=== PATIENT | female | born 1935 | race Caucasian/White ===

== ENCOUNTER 2017-10-03 06:53 | Inpatient (IN) ==
[2017-10-03 07:53] LABS: Apearance,Urine Slightly Hazy (Clear); Bacteria,Urine Occasional /HPF (Few); Bilirubin,Urine Negative (Negative); Blood, Urine Negative (Negative); Glucose,Urine (UA) Negative (Negative); Ketones,Urine Negative (Negative); Mucus,Urine Occasional /LPF (Occasional); Nitrite,Urine Negative (Negative); Protein,Urine Negative; RBC,Urine 5 /HPF (0-4); Squamous Epithelial Cell,Urine Occasional /HPF (0-10); Urine Color Yellow (Yellow); Urine Specific Gravity 1.017 (1.001-1.035); Urine Urobilinogen < 2.0 EU/DL (0.2-1.0); WBC,Urine 1 /HPF (0-6)
[2017-10-03 08:10] LABS: Basophils % 0.3 % (0.0-0.8); Eosinophils % 0.3 % (0.00-10.9); Hematocrit 36.9 VOL% (35.7-47.0); Hemoglobin 11.8 GM/DL (12.0-16.0); Immature Granulocytes % 0.7 %; Immature Granulocytes Absolute 0.09 #; Lymphocytes % 22.1 % (21.3-54.2); Mean Corpuscular Hemoglobin 28 PG (27-34); Mean Corpuscular Volume 88.1 FL (87-102); Mean Platelet Volume 11.9 FL (9.6-12.0); Monocytes # 1.1 10*3/uL (0.11-0.8); Monocytes % 8.2 % (1.7-12.7); Neutrophils # 9.4 10*3/uL (1.4-7.4); Neutrophils % 68.4 % (38.7-73.9); Platelet Count 225 T/CUMM (130-400); Red Blood Count 4.19 MC/CUMM (3.8-5.5); Red Cell Distribution Width 15.2 % (9.3-17.3); White Blood Count 13.7 T/CUMM (4-12)
[2017-10-03] MEDS ORDERED: SODIUM CHLORIDE 0.9% 500 ML IV STA (08:12)
[2017-10-03] MEDS ORDERED: KETOROLAC 30 MG/1 ML VIAL IV STA (08:12)
[2017-10-03] MEDS ORDERED: KETOROLAC 30 MG/1 ML VIAL ONE (08:16)
[2017-10-03 08:32] LABS: Alanine Aminotransferase 13 U/L (13-56); Albumin 3.8 G/DL (3.4-5.0); Alkaline Phosphatase 68 U/L (45-117); Aspartate Amino Transferase 18 U/L (0-37); Bilirubin,Total < 0.39 MG/DL (0.2-1.0); Blood Urea Nitrogen 33 MG/DL (7-18); Calcium 9.3 MG/DL (8.5-10.1); Glucose 260 MG/DL (74-106); Osmolality,Calculated 290.7 MOS/KG (273-304); Potassium 4.5 MMOL/L (3.5-5.1); Sodium 138 MMOL/L (136-145); Total Protein 7.4 G/DL (6.4-8.3)
[2017-10-03] MEDS ORDERED: ONDANSETRON 4 MG/2 ML VIAL IV PRN (12:03)
[2017-10-03] MEDS ORDERED: DEXTROSE 50% 25 GM/50 ML VIAL IV PRN (12:18)
[2017-10-03] MEDS ORDERED: GLUCAGON 1 MG VIAL IM PRN (12:18)
[2017-10-03] MEDS ORDERED: KETOROLAC 15 MG/1 ML VIAL IV SCH (12:30)
[2017-10-03 12:45] LABS: Thyroid Stimulating Hormone 2.56 uIU/ml (0.358-3.74)
[2017-10-03] MEDS ORDERED: CIPROFLOXACIN INJ 400 MG in PREMIX 1 EACH IV SCH (13:00)
[2017-10-03] MEDS: SODIUM CHLORIDE 0.9% 1,000 ML IV SCH ×2 (13:55→23:15)
[2017-10-03] MEDS ORDERED: traMADol 50 MG TABLET PO PRN (14:06)
[2017-10-03] MEDS ORDERED: diphenhydrAMINE 50 MG/1 ML VIAL IV PRN (14:32)
[2017-10-03] MEDS: ALUMINUM/MAGNES/SIMETH MAX STR 30 ML UDCUP PO SCH ×3 (15:10→23:15)
[2017-10-03] MEDS: cefOXitin 2,000 MG in SYRINGE 1 EACH IV SCH (16:38)
[2017-10-03] MEDS: INSULIN LISPRO 100 UNIT/ML SUBCUT SCH (16:49)
[2017-10-03] MEDS: ASPIRIN EC 81 MG TABLET PO SCH (20:30)
[2017-10-03] MEDS: FAMOTIDINE 20 MG/2 ML VIAL IV SCH (20:31)
[2017-10-04] MEDS: cefOXitin 2,000 MG in SYRINGE 1 EACH IV SCH ×3 (00:12→16:31)
[2017-10-04] MEDS: ALUMINUM/MAGNES/SIMETH MAX STR 30 ML UDCUP PO SCH ×3 (02:36→11:31)
[2017-10-04 05:45] LABS: Basophils % 0.4 % (0.0-0.8); Eosinophils # 0.1 10*3/uL (0.0-0.87); Hematocrit 34.8 VOL% (35.7-47.0); Hemoglobin 10.9 GM/DL (12.0-16.0); Immature Granulocytes % 0.4 %; Immature Granulocytes Absolute 0.03 #; Lymphocytes # 2.3 10*3/uL (1.4-4.0); Mean Corpuscular HGB Conc 31.3 GM/DL (32-36); Mean Corpuscular Hemoglobin 28 PG (27-34); Mean Platelet Volume 10.9 FL (9.6-12.0); Monocytes # 0.8 10*3/uL (0.11-0.8); Monocytes % 11.5 % (1.7-12.7); Neutrophils # 3.4 10*3/uL (1.4-7.4); Neutrophils % 51.7 % (38.7-73.9); Platelet Count 208 T/CUMM (130-400); Red Blood Count 3.91 MC/CUMM (3.8-5.5); Red Cell Distribution Width 15.4 % (9.3-17.3); White Blood Count 6.7 T/CUMM (4-12)
[2017-10-04] MEDS: LEVOTHYROXINE 125 MCG TABLET PO SCH (06:06)
[2017-10-04 06:18] LABS: Albumin 2.9 G/DL (3.4-5.0); Bilirubin,Total 0.4 MG/DL (0.2-1.0); Calcium 8.4 MG/DL (8.5-10.1); Potassium 4.6 MMOL/L (3.5-5.1); Risk Ratio 5.51; Total Protein 5.8 G/DL (6.4-8.3); VLDL CHOLESTEROL 48.8 MG/DL
[2017-10-04] MEDS: INSULIN LISPRO 100 UNIT/ML SUBCUT SCH ×2 (08:00→16:31)
[2017-10-04] MEDS: amLODIPine 2.5 MG TABLET PO SCH (09:19)
[2017-10-04] MEDS: FAMOTIDINE 20 MG/2 ML VIAL IV SCH ×2 (09:19→21:41)
[2017-10-04] MEDS: CHOLECALCIFEROL 1,000 UNIT TABLET PO SCH (09:19)
[2017-10-04] MEDS: SODIUM CHLORIDE 0.9% 1,000 ML IV SCH ×2 (09:22→18:59)
[2017-10-04] MEDS: ASPIRIN EC 81 MG TABLET PO SCH (21:41)
[2017-10-05] MEDS: cefOXitin 2,000 MG in SYRINGE 1 EACH IV SCH ×3 (01:18→16:33)
[2017-10-05] MEDS: SODIUM CHLORIDE 0.9% 1,000 ML IV SCH ×2 (05:00→13:43)
[2017-10-05 06:16] LABS: Basophils % 0.4 % (0.0-0.8); Eosinophils # 0.1 10*3/uL (0.0-0.87); Eosinophils % 1.7 % (0.00-10.9); Hematocrit 33.9 VOL% (35.7-47.0); Hemoglobin 10.5 GM/DL (12.0-16.0); Immature Granulocytes % 0.8 %; Immature Granulocytes Absolute 0.06 #; Lymphocytes # 2.5 10*3/uL (1.4-4.0); Lymphocytes % 34.5 % (21.3-54.2); Mean Corpuscular Hemoglobin 28 PG (27-34); Mean Corpuscular Volume 90.6 FL (87-102); Mean Platelet Volume 11.6 FL (9.6-12.0); Monocytes # 0.8 10*3/uL (0.11-0.8); Monocytes % 11.4 % (1.7-12.7); Neutrophils # 3.7 10*3/uL (1.4-7.4); Neutrophils % 51.2 % (38.7-73.9); Platelet Count 202 T/CUMM (130-400); Red Blood Count 3.74 MC/CUMM (3.8-5.5); Red Cell Distribution Width 15.5 % (9.3-17.3); White Blood Count 7.3 T/CUMM (4-12)
[2017-10-05] MEDS: LEVOTHYROXINE 125 MCG TABLET PO SCH (06:45)
[2017-10-05 06:47] LABS: Calcium 8.3 MG/DL (8.5-10.1); Osmolality,Calculated 288.8 MOS/KG (273-304); Potassium 4.3 MMOL/L (3.5-5.1)
[2017-10-05] MEDS: INSULIN LISPRO 100 UNIT/ML SUBCUT SCH ×2 (08:41→18:24)
[2017-10-05] MEDS ORDERED: LIDOCAINE 2% TOP JELLY 20 ML VIAL INTRAURETH ONE (08:43)
[2017-10-05] MEDS: amLODIPine 2.5 MG TABLET PO SCH (08:45)
[2017-10-05] MEDS: FAMOTIDINE 20 MG/2 ML VIAL IV SCH ×2 (08:45→21:08)
[2017-10-05] MEDS ORDERED: SEVOFLURANE 1 UNIT/15 MINUTE INH ONE (11:09)
[2017-10-05] MEDS ORDERED: ePHEDrine 50 MG/ML AMP ONE (11:10)
[2017-10-05] MEDS ORDERED: MIDAZOLAM 2 MG/2 ML VIAL ONE (11:10)
[2017-10-05] MEDS ORDERED: fentaNYL 100 MCG/2 ML VIAL ONE (11:10)
[2017-10-05] MEDS ORDERED: PHENYLEPHRINE 10 MG/1 ML VIAL IV ONE (11:11)
[2017-10-05] MEDS ORDERED: SUCCINYLCHOLINE 200 MG/10 ML VIAL ONE (11:11)
[2017-10-05] MEDS ORDERED: ONDANSETRON 4 MG/2 ML VIAL ONE (11:11)
[2017-10-05] MEDS ORDERED: GLYCOPYRROLATE 0.4 MG/2 ML VIAL ONE (11:11)
[2017-10-05] MEDS: CHOLECALCIFEROL 1,000 UNIT TABLET PO SCH (11:32)
[2017-10-05] MEDS: ALBUTEROL/IPRATROPIUM 3 ML NEB RESP TX SCH (19:17)
[2017-10-05] MEDS: ASPIRIN EC 81 MG TABLET PO SCH (21:07)
[2017-10-06] MEDS: SODIUM CHLORIDE 0.9% 1,000 ML IV SCH (00:16)
[2017-10-06] MEDS: ALBUTEROL/IPRATROPIUM 3 ML NEB RESP TX SCH ×3 (01:35→13:00)
[2017-10-06] MEDS: cefOXitin 2,000 MG in SYRINGE 1 EACH IV SCH ×2 (01:50→11:54)
[2017-10-06 06:18] LABS: Basophils % 0.4 % (0.0-0.8); Eosinophils # 0.1 10*3/uL (0.0-0.87); Eosinophils % 1.2 % (0.00-10.9); Hematocrit 32.6 VOL% (35.7-47.0); Hemoglobin 10.1 GM/DL (12.0-16.0); Immature Granulocytes % 0.4 %; Immature Granulocytes Absolute 0.03 #; Lymphocytes # 1.9 10*3/uL (1.4-4.0); Lymphocytes % 22.7 % (21.3-54.2); Mean Corpuscular Hemoglobin 29 PG (27-34); Mean Corpuscular Volume 92.1 FL (87-102); Mean Platelet Volume 10.6 FL (9.6-12.0); Monocytes # 0.8 10*3/uL (0.11-0.8); Monocytes % 9.6 % (1.7-12.7); Neutrophils # 5.5 10*3/uL (1.4-7.4); Neutrophils % 65.7 % (38.7-73.9); Platelet Count 188 T/CUMM (130-400); Red Blood Count 3.54 MC/CUMM (3.8-5.5); Red Cell Distribution Width 15.8 % (9.3-17.3); White Blood Count 8.4 T/CUMM (4-12)
[2017-10-06 06:54] LABS: Calcium 7.9 MG/DL (8.5-10.1); Osmolality,Calculated 285.8 MOS/KG (273-304); Potassium 4.2 MMOL/L (3.5-5.1)
[2017-10-06 07:44] VITALS: BP 148/86
[2017-10-06] MEDS: INSULIN LISPRO 100 UNIT/ML SUBCUT SCH (07:44)
[2017-10-06] MEDS ORDERED: FUROSEMIDE 40 MG/4 ML VIAL IV ONE (11:00)
[2017-10-06] MEDS: LEVOTHYROXINE 125 MCG TABLET PO SCH (11:54)
[2017-10-06] MEDS: amLODIPine 2.5 MG TABLET PO SCH (11:54)
[2017-10-06] MEDS: CHOLECALCIFEROL 1,000 UNIT TABLET PO SCH (11:54)
[2017-10-06] MEDS: FAMOTIDINE 20 MG/2 ML VIAL IV SCH (11:57)
== END 2017-10-06 15:29 | disposition home or self-care (01) | DRG 656 ==
LOC: N.ED 06:53 → N.EDINP 10:38 → N.2E 11:40
PROVIDERS: ADMIT Internal Medicine; ATTEND Internal Medicine

== ENCOUNTER 2017-10-12 15:55 | Inpatient (IN) ==
[2017-10-12] MEDS ORDERED: AZITHROMYCIN INJ 500 MG in SODIUM CHLORIDE 0.9% 250 ML IV STA (17:16)
[2017-10-12] MEDS ORDERED: ALBUTEROL/IPRATROPIUM 3 ML NEB RESP TX STA (17:16)
[2017-10-12] MEDS ORDERED: PANTOPRAZOLE 40 MG VIAL IV STA (17:16)
[2017-10-12] MEDS ORDERED: ONDANSETRON 4 MG/2 ML VIAL IV STA (17:16)
[2017-10-12] MEDS ORDERED: methylPREDNISolone SOD SUC 125 MG/2 ML VIAL IV STA (17:16)
[2017-10-12] MEDS ORDERED: AZITHROMYCIN 500 MG VIAL IV ONE (17:38)
[2017-10-12] MEDS ORDERED: PANTOPRAZOLE 40 MG VIAL IV ONE (17:38)
[2017-10-12] MEDS ORDERED: ONDANSETRON 4 MG/2 ML VIAL ONE (17:38)
[2017-10-12] MEDS ORDERED: methylPREDNISolone SOD SUC 125 MG/2 ML VIAL ONE (17:39)
[2017-10-12 17:52] LABS: Basophils % 0.3 % (0.0-0.8); Eosinophils # 0.1 10*3/uL (0.0-0.87); Eosinophils % 0.6 % (0.00-10.9); Hematocrit 33.5 VOL% (35.7-47.0); Hemoglobin 10.3 GM/DL (12.0-16.0); Immature Granulocytes % 0.8 %; Immature Granulocytes Absolute 0.09 #; Lymphocytes # 1.9 10*3/uL (1.4-4.0); Lymphocytes % 17.1 % (21.3-54.2); Mean Corpuscular HGB Conc 30.7 GM/DL (32-36); Mean Corpuscular Hemoglobin 28 PG (27-34); Mean Corpuscular Volume 90.3 FL (87-102); Mean Platelet Volume 10.9 FL (9.6-12.0); Monocytes # 1.3 10*3/uL (0.11-0.8); Monocytes % 12.1 % (1.7-12.7); Neutrophils # 7.5 10*3/uL (1.4-7.4); Neutrophils % 69.1 % (38.7-73.9); Platelet Count 246 T/CUMM (130-400); Red Blood Count 3.71 MC/CUMM (3.8-5.5); Red Cell Distribution Width 15.5 % (9.3-17.3); White Blood Count 10.8 T/CUMM (4-12)
[2017-10-12 18:30] LABS: Alanine Aminotransferase 14 U/L (13-56); Albumin 2.9 G/DL (3.4-5.0); Alkaline Phosphatase 82 U/L (45-117); Aspartate Amino Transferase 19 U/L (0-37); Blood Urea Nitrogen 8 MG/DL (7-18); Calcium 8.4 MG/DL (8.5-10.1); Glucose 152 MG/DL (74-106); Osmolality,Calculated 283.1 MOS/KG (273-304); Potassium 4.2 MMOL/L (3.5-5.1); Sodium 142 MMOL/L (136-145); Total Protein 6.5 G/DL (6.4-8.3); Troponin I Only 0.015 NG/ML (0.00-0.045)
[2017-10-12 18:58] LABS: Apearance,Urine CLEAR (Clear); Bilirubin,Urine Negative (Negative); Blood, Urine Moderate mg/dL (Negative); Glucose,Urine (UA) Negative (Negative); Ketones,Urine Negative (Negative); Mucus,Urine Occasional /LPF (Occasional); Nitrite,Urine Negative (Negative); Protein,Urine Negative; RBC,Urine 69 /HPF (0-4); Squamous Epithelial Cell,Urine Occasional /HPF (0-10); Urine Color Yellow (Yellow); Urine Specific Gravity 1.011 (1.001-1.035); Urine Urobilinogen < 2.0 EU/DL (0.2-1.0); WBC,Urine 12 /HPF (0-6)
[2017-10-12 19:25] LABS: PT Patient Result 10.6 SECS; Partial Thromboplastin Time 33.6 SECS (0-40)
[2017-10-12] MEDS ORDERED: MORPHINE 2 MG/1 ML SYRINGE IV PRN (21:33)
[2017-10-12] MEDS ORDERED: ALBUTEROL/IPRATROPIUM 3 ML NEB RESP TX PRN (21:33)
[2017-10-12] MEDS ORDERED: GLUCAGON 1 MG VIAL IM PRN ×2 (21:33)
[2017-10-12] MEDS ORDERED: DEXTROSE 50% 25 GM/50 ML VIAL IV PRN ×2 (21:33)
[2017-10-12] MEDS ORDERED: PROMETHAZINE 25 MG/1 ML VIAL IM PRN (21:33)
[2017-10-12] MEDS ORDERED: ACETAMINOPHEN 325 MG TABLET PO PRN (21:33)
[2017-10-12] MEDS ORDERED: IMIPENEM/CILASTATIN 500 MG in SODIUM CHLORIDE 0.9% 100 ML IV SCH (21:33)
[2017-10-12] MEDS: INSULIN REGULAR 100 UNIT/ML SUBCUT SCH (22:17)
[2017-10-12] MEDS: SODIUM CHLORIDE 0.9% 1,000 ML IV SCH (23:07)
[2017-10-12] MEDS: MEROPENEM 1,000 MG in SYRINGE 1 EACH IV SCH (23:07)
[2017-10-12] MEDS: DOCUSATE SODIUM 100 MG CAPSULE PO SCH (23:07)
[2017-10-12] MEDS: ENOXAPARIN 40 MG/0.4 ML SYRINGE SUBCUT SCH (23:07)
[2017-10-13] MEDS: ALBUTEROL/IPRATROPIUM 3 ML NEB RESP TX SCH ×4 (01:41→19:43)
[2017-10-13] MEDS: MEROPENEM 1,000 MG in SYRINGE 1 EACH IV SCH ×3 (05:28→20:45)
[2017-10-13 07:56] LABS: Basophils % 0.2 % (0.0-0.8); Hematocrit 32.1 VOL% (35.7-47.0); Hemoglobin 10.2 GM/DL (12.0-16.0); Immature Granulocytes % 1.1 %; Immature Granulocytes Absolute 0.11 #; Lymphocytes # 1.8 10*3/uL (1.4-4.0); Lymphocytes % 18.7 % (21.3-54.2); Mean Corpuscular HGB Conc 31.8 GM/DL (32-36); Mean Corpuscular Hemoglobin 28 PG (27-34); Mean Corpuscular Volume 88.7 FL (87-102); Mean Platelet Volume 11.4 FL (9.6-12.0); Monocytes # 0.4 10*3/uL (0.11-0.8); Monocytes % 3.9 % (1.7-12.7); Neutrophils # 7.5 10*3/uL (1.4-7.4); Neutrophils % 76.1 % (38.7-73.9); Platelet Count 285 T/CUMM (130-400); Red Blood Count 3.62 MC/CUMM (3.8-5.5); Red Cell Distribution Width 15.1 % (9.3-17.3); White Blood Count 9.9 T/CUMM (4-12)
[2017-10-13 08:25] LABS: Albumin 2.8 G/DL (3.4-5.0); Bilirubin,Total 0.4 MG/DL (0.2-1.0); Calcium 8.2 MG/DL (8.5-10.1); Potassium 4.4 MMOL/L (3.5-5.1); Total Protein 6.4 G/DL (6.4-8.3)
[2017-10-13] MEDS: INSULIN REGULAR 100 UNIT/ML SUBCUT SCH ×4 (08:54→21:44)
[2017-10-13] MEDS: amLODIPine 2.5 MG TABLET PO SCH (08:55)
[2017-10-13] MEDS: LEVOTHYROXINE 125 MCG TABLET PO SCH (08:55)
[2017-10-13] MEDS: CHOLECALCIFEROL 1,000 UNIT TABLET PO SCH (08:55)
[2017-10-13] MEDS: metFORMIN 500 MG TABLET PO SCH ×2 (08:56→17:47)
[2017-10-13] MEDS: DOCUSATE SODIUM 100 MG CAPSULE PO SCH ×2 (08:56→20:45)
[2017-10-13] MEDS: PANTOPRAZOLE 40 MG TABLET PO SCH (08:56)
[2017-10-13] MEDS: DESITIN 4OZ/NYSTATIN 15 GRAM MIXTURE PASTE TOP SCH ×2 (14:46→21:44)
[2017-10-13] MEDS: AZITHROMYCIN INJ 250 MG in SODIUM CHLORIDE 0.9% 250 ML IV SCH (17:49)
[2017-10-13] MEDS: ASPIRIN EC 81 MG TABLET PO SCH (20:45)
[2017-10-13] MEDS: PRAVASTATIN 40 MG TABLET PO SCH (20:45)
[2017-10-13] MEDS: MULTIVITAMIN (CENTRUM) TABLET PO SCH (20:45)
[2017-10-13] MEDS: ENOXAPARIN 40 MG/0.4 ML SYRINGE SUBCUT SCH (20:45)
[2017-10-13] MEDS: SODIUM CHLORIDE 0.9% 1,000 ML IV SCH (20:46)
[2017-10-14] MEDS: ALBUTEROL/IPRATROPIUM 3 ML NEB RESP TX SCH (01:05)
[2017-10-14] MEDS ORDERED: DILTIAZEM 50 MG/10 ML VIAL IV ONE (05:49)
[2017-10-14] MEDS ORDERED: LEVALBUTEROL 1.25 MG/3 ML NEB RESP TX PRN (05:50)
[2017-10-14] MEDS ORDERED: DILTIAZEM 100 MG VIAL.ADD IV ONE (05:53)
[2017-10-14] MEDS ORDERED: SODIUM CHLORIDE 0.9% 100 ML IV ONE (05:54)
[2017-10-14] MEDS: DILTIAZEM INJ 100 MG in SODIUM CHLORIDE 0.9% 100 ML IV SCH (05:56)
[2017-10-14] MEDS: MEROPENEM 1,000 MG in SYRINGE 1 EACH IV SCH ×3 (05:59→22:02)
[2017-10-14 06:07] LABS: Basophils % 0.3 % (0.0-0.8); Eosinophils # 0.1 10*3/uL (0.0-0.87); Eosinophils % 0.4 % (0.00-10.9); Hematocrit 34.6 VOL% (35.7-47.0); Hemoglobin 10.7 GM/DL (12.0-16.0); Immature Granulocytes % 1.2 %; Immature Granulocytes Absolute 0.19 #; Lymphocytes # 2.6 10*3/uL (1.4-4.0); Lymphocytes % 16.8 % (21.3-54.2); Mean Corpuscular HGB Conc 30.9 GM/DL (32-36); Mean Corpuscular Hemoglobin 28 PG (27-34); Mean Corpuscular Volume 90.1 FL (87-102); Mean Platelet Volume 10.8 FL (9.6-12.0); Monocytes # 1.6 10*3/uL (0.11-0.8); Monocytes % 10.1 % (1.7-12.7); NRBC # 0.02 10*3/uL; Neutrophils # 11.1 10*3/uL (1.4-7.4); Neutrophils % 71.2 % (38.7-73.9); Platelet Count 380 T/CUMM (130-400); Red Blood Count 3.84 MC/CUMM (3.8-5.5); Red Cell Distribution Width 15.8 % (9.3-17.3); White Blood Count 15.6 T/CUMM (4-12)
[2017-10-14] MEDS ORDERED: hydrALAZINE 20 MG/1 ML VIAL IV PRN (06:08)
[2017-10-14 06:37] LABS: Alanine Aminotransferase 20 U/L (13-56); Alkaline Phosphatase 88 U/L (45-117); Aspartate Amino Transferase 21 U/L (0-37); Bilirubin,Total < 0.39 MG/DL (0.2-1.0); Blood Urea Nitrogen 16 MG/DL (7-18); Calcium 8.2 MG/DL (8.5-10.1); Glucose 167 MG/DL (74-106); Osmolality,Calculated 290.8 MOS/KG (273-304); Potassium 4.4 MMOL/L (3.5-5.1); Sodium 144 MMOL/L (136-145); Total Protein 6.6 G/DL (6.4-8.3)
[2017-10-14] MEDS: LEVOTHYROXINE 125 MCG TABLET PO SCH (07:19)
[2017-10-14] MEDS: ENOXAPARIN 100 MG/ML SYRINGE SUBCUT SCH ×2 (07:19→18:09)
[2017-10-14] MEDS: IPRATROPIUM 500 MCG/2.5 ML NEB RESP TX SCH ×3 (08:26→19:57)
[2017-10-14] MEDS: INSULIN REGULAR 100 UNIT/ML SUBCUT SCH ×4 (09:06→22:06)
[2017-10-14] MEDS: CHOLECALCIFEROL 1,000 UNIT TABLET PO SCH (09:19)
[2017-10-14] MEDS: metFORMIN 500 MG TABLET PO SCH ×2 (09:19→17:07)
[2017-10-14] MEDS: amLODIPine 2.5 MG TABLET PO SCH (09:19)
[2017-10-14] MEDS: DOCUSATE SODIUM 100 MG CAPSULE PO SCH ×2 (09:19→22:01)
[2017-10-14] MEDS: DESITIN 4OZ/NYSTATIN 15 GRAM MIXTURE PASTE TOP SCH ×2 (09:20→22:02)
[2017-10-14] MEDS: PANTOPRAZOLE 40 MG TABLET PO SCH (09:20)
[2017-10-14] MEDS: METOPROLOL TARTRATE 25 MG TABLET PO SCH ×2 (10:00→22:01)
[2017-10-14] MEDS: AZITHROMYCIN INJ 250 MG in SODIUM CHLORIDE 0.9% 250 ML IV SCH (18:09)
[2017-10-14] MEDS: PRAVASTATIN 40 MG TABLET PO SCH (22:01)
[2017-10-14] MEDS: MULTIVITAMIN (CENTRUM) TABLET PO SCH (22:01)
[2017-10-14] MEDS: ASPIRIN EC 81 MG TABLET PO SCH (22:01)
[2017-10-15] MEDS: IPRATROPIUM 500 MCG/2.5 ML NEB RESP TX SCH ×4 (00:44→20:37)
[2017-10-15] MEDS: LEVOTHYROXINE 125 MCG TABLET PO SCH (06:13)
[2017-10-15] MEDS: ENOXAPARIN 100 MG/ML SYRINGE SUBCUT SCH ×2 (06:14→18:44)
[2017-10-15] MEDS: MEROPENEM 1,000 MG in SYRINGE 1 EACH IV SCH ×3 (06:15→22:23)
[2017-10-15] MEDS: PANTOPRAZOLE 40 MG TABLET PO SCH (10:13)
[2017-10-15] MEDS: CHOLECALCIFEROL 1,000 UNIT TABLET PO SCH (10:13)
[2017-10-15] MEDS: amLODIPine 2.5 MG TABLET PO SCH (10:14)
[2017-10-15] MEDS: metFORMIN 500 MG TABLET PO SCH ×2 (10:15→18:43)
[2017-10-15] MEDS: METOPROLOL TARTRATE 25 MG TABLET PO SCH ×2 (10:15→22:22)
[2017-10-15] MEDS: DOCUSATE SODIUM 100 MG CAPSULE PO SCH ×2 (10:15→22:23)
[2017-10-15] MEDS: DILTIAZEM INJ 100 MG in SODIUM CHLORIDE 0.9% 100 ML IV SCH (10:17)
[2017-10-15] MEDS: INSULIN REGULAR 100 UNIT/ML SUBCUT SCH ×4 (10:17→22:22)
[2017-10-15] MEDS: DESITIN 4OZ/NYSTATIN 15 GRAM MIXTURE PASTE TOP SCH ×2 (11:56→22:52)
[2017-10-15] MEDS: FUROSEMIDE 40 MG/4 ML VIAL IV SCH (16:33)
[2017-10-15] MEDS: LINEZOLID INJ 600 MG in PREMIX 1 EACH IV SCH (17:27)
[2017-10-15] MEDS: FLUCONAZOLE INJ 200 MG in PREMIX 1 EACH IV SCH (18:43)
[2017-10-15] MEDS: PRAVASTATIN 40 MG TABLET PO SCH (22:21)
[2017-10-15] MEDS: MULTIVITAMIN (CENTRUM) TABLET PO SCH (22:21)
[2017-10-15] MEDS: ASPIRIN EC 81 MG TABLET PO SCH (22:22)
[2017-10-16] MEDS: IPRATROPIUM 500 MCG/2.5 ML NEB RESP TX SCH ×4 (00:42→18:30)
[2017-10-16 03:48] LABS: ABG Base Excess 5.6 MMOL/L (-2.5-2.5); ABG HCO3 29.5 MMOL/L (20-26); ABG Oxygen Saturation 96.7 % (95-100); ABG PCO2 41.2 MM HG (35-48); ABG PH 7.468 (7.35-7.45); ABG PO2 78.5 MM HG (80-95); ABG TCO2 26.9 MMOL/L (23-27)
[2017-10-16 05:45] LABS: Basophils % 0.3 % (0.0-0.8); Eosinophils # 0.1 10*3/uL (0.0-0.87); Eosinophils % 1.3 % (0.00-10.9); Hematocrit 32.7 VOL% (35.7-47.0); Hemoglobin 10.4 GM/DL (12.0-16.0); Immature Granulocytes % 1.7 %; Immature Granulocytes Absolute 0.18 #; Lymphocytes # 1.8 10*3/uL (1.4-4.0); Lymphocytes % 17.3 % (21.3-54.2); Mean Corpuscular HGB Conc 31.8 GM/DL (32-36); Mean Corpuscular Hemoglobin 28 PG (27-34); Mean Corpuscular Volume 87.9 FL (87-102); Mean Platelet Volume 11.3 FL (9.6-12.0); Monocytes # 1.4 10*3/uL (0.11-0.8); Neutrophils % 66.4 % (38.7-73.9); Platelet Count 361 T/CUMM (130-400); Red Blood Count 3.72 MC/CUMM (3.8-5.5); Red Cell Distribution Width 15.3 % (9.3-17.3); White Blood Count 10.5 T/CUMM (4-12)
[2017-10-16] MEDS: ENOXAPARIN 100 MG/ML SYRINGE SUBCUT SCH (06:07)
[2017-10-16] MEDS: LEVOTHYROXINE 125 MCG TABLET PO SCH (06:07)
[2017-10-16] MEDS: MEROPENEM 1,000 MG in SYRINGE 1 EACH IV SCH ×3 (06:07→21:37)
[2017-10-16] MEDS: LINEZOLID INJ 600 MG in PREMIX 1 EACH IV SCH ×2 (06:16→13:46)
[2017-10-16 06:18] LABS: Calcium 8.4 MG/DL (8.5-10.1); Osmolality,Calculated 282.4 MOS/KG (273-304)
[2017-10-16] MEDS: DILTIAZEM INJ 100 MG in SODIUM CHLORIDE 0.9% 100 ML IV SCH (07:30)
[2017-10-16] MEDS: metFORMIN 500 MG TABLET PO SCH ×2 (09:08→17:28)
[2017-10-16] MEDS: CHOLECALCIFEROL 1,000 UNIT TABLET PO SCH (09:09)
[2017-10-16] MEDS: DOCUSATE SODIUM 100 MG CAPSULE PO SCH ×2 (09:09→21:21)
[2017-10-16] MEDS: FUROSEMIDE 40 MG/4 ML VIAL IV SCH (09:09)
[2017-10-16] MEDS: PANTOPRAZOLE 40 MG TABLET PO SCH (09:09)
[2017-10-16] MEDS: METOPROLOL TARTRATE 25 MG TABLET PO SCH ×2 (09:09→21:20)
[2017-10-16] MEDS: amLODIPine 2.5 MG TABLET PO SCH (09:09)
[2017-10-16] MEDS: INSULIN REGULAR 100 UNIT/ML SUBCUT SCH ×4 (09:14→20:34)
[2017-10-16] MEDS: DESITIN 4OZ/NYSTATIN 15 GRAM MIXTURE PASTE TOP SCH ×2 (09:14→21:30)
[2017-10-16] MEDS ORDERED: MEROPENEM 1,000 MG in SYRINGE 1 EACH IV ONE (13:30)
[2017-10-16] MEDS: methylPREDNISolone SOD SUC 40 MG/1 ML VIAL IV SCH (17:22)
[2017-10-16] MEDS: FLUCONAZOLE INJ 200 MG in PREMIX 1 EACH IV SCH (17:28)
[2017-10-16] MEDS: ASCORBIC ACID 500 MG TABLET PO SCH (21:20)
[2017-10-16] MEDS: PRAVASTATIN 40 MG TABLET PO SCH (21:20)
[2017-10-16] MEDS: MULTIVITAMIN (CENTRUM) TABLET PO SCH (21:20)
[2017-10-16] MEDS: ASPIRIN EC 81 MG TABLET PO SCH (21:20)
[2017-10-17] MEDS: IPRATROPIUM 500 MCG/2.5 ML NEB RESP TX SCH ×4 (00:10→19:45)
[2017-10-17] MEDS: methylPREDNISolone SOD SUC 40 MG/1 ML VIAL IV SCH ×3 (01:33→16:28)
[2017-10-17] MEDS: LINEZOLID INJ 600 MG in PREMIX 1 EACH IV SCH ×2 (02:36→14:19)
[2017-10-17] MEDS: MEROPENEM 1,000 MG in SYRINGE 1 EACH IV SCH ×3 (06:02→20:59)
[2017-10-17 06:04] LABS: Basophils % 0.1 % (0.0-0.8); Hemoglobin 10.6 GM/DL (12.0-16.0); Immature Granulocytes % 2.4 %; Immature Granulocytes Absolute 0.23 #; Lymphocytes # 1.5 10*3/uL (1.4-4.0); Lymphocytes % 15.1 % (21.3-54.2); Mean Corpuscular HGB Conc 32.1 GM/DL (32-36); Mean Corpuscular Hemoglobin 28 PG (27-34); Mean Corpuscular Volume 86.4 FL (87-102); Mean Platelet Volume 12.1 FL (9.6-12.0); Monocytes # 0.3 10*3/uL (0.11-0.8); Monocytes % 3.4 % (1.7-12.7); Neutrophils # 7.6 10*3/uL (1.4-7.4); Platelet Count 364 T/CUMM (130-400); Red Blood Count 3.82 MC/CUMM (3.8-5.5); Red Cell Distribution Width 14.9 % (9.3-17.3); White Blood Count 9.6 T/CUMM (4-12)
[2017-10-17] MEDS: LEVOTHYROXINE 125 MCG TABLET PO SCH (06:05)
[2017-10-17] MEDS: DILTIAZEM INJ 100 MG in SODIUM CHLORIDE 0.9% 100 ML IV SCH (06:20)
[2017-10-17 06:31] LABS: Band Neutrophils 4 % (0-10); Lymphocytes 11 % (20-55); Segmented Neutrophils 79 % (50-85); Total Cells Counted 100
[2017-10-17 06:32] LABS: Hypochromasia 2+; Platelet Estimate Adequate
[2017-10-17 06:42] LABS: Calcium 8.1 MG/DL (8.5-10.1); Osmolality,Calculated 286.5 MOS/KG (273-304); Potassium 4.4 MMOL/L (3.5-5.1)
[2017-10-17] MEDS: INSULIN REGULAR 100 UNIT/ML SUBCUT SCH ×4 (07:46→20:59)
[2017-10-17] MEDS: FUROSEMIDE 40 MG/4 ML VIAL IV SCH (10:04)
[2017-10-17] MEDS: metFORMIN 500 MG TABLET PO SCH ×2 (10:37→16:28)
[2017-10-17] MEDS: CHOLECALCIFEROL 1,000 UNIT TABLET PO SCH (10:38)
[2017-10-17] MEDS: ASCORBIC ACID 500 MG TABLET PO SCH ×2 (10:38→20:58)
[2017-10-17] MEDS: amLODIPine 2.5 MG TABLET PO SCH (10:38)
[2017-10-17] MEDS: PANTOPRAZOLE 40 MG TABLET PO SCH (10:39)
[2017-10-17] MEDS: METOPROLOL TARTRATE 25 MG TABLET PO SCH ×2 (10:39→20:58)
[2017-10-17] MEDS: DOCUSATE SODIUM 100 MG CAPSULE PO SCH ×2 (10:40→20:59)
[2017-10-17] MEDS: DESITIN 4OZ/NYSTATIN 15 GRAM MIXTURE PASTE TOP SCH ×2 (10:46→20:59)
[2017-10-17] MEDS: FLUCONAZOLE INJ 200 MG in PREMIX 1 EACH IV SCH (16:27)
[2017-10-17] MEDS: MULTIVITAMIN (CENTRUM) TABLET PO SCH (20:58)
[2017-10-17] MEDS: ASPIRIN EC 81 MG TABLET PO SCH (20:58)
[2017-10-17] MEDS: PRAVASTATIN 40 MG TABLET PO SCH (20:58)
[2017-10-18] MEDS: IPRATROPIUM 500 MCG/2.5 ML NEB RESP TX SCH ×4 (00:17→19:43)
[2017-10-18] MEDS: LINEZOLID INJ 600 MG in PREMIX 1 EACH IV SCH (02:56)
[2017-10-18] MEDS: methylPREDNISolone SOD SUC 40 MG/1 ML VIAL IV SCH ×3 (02:58→21:31)
[2017-10-18] MEDS: MEROPENEM 1,000 MG in SYRINGE 1 EACH IV SCH ×3 (05:00→21:31)
[2017-10-18] MEDS: DILTIAZEM INJ 100 MG in SODIUM CHLORIDE 0.9% 100 ML IV SCH (05:37)
[2017-10-18] MEDS: LEVOTHYROXINE 125 MCG TABLET PO SCH (06:00)
[2017-10-18 06:15] LABS: Basophils % 0.1 % (0.0-0.8); Hematocrit 33.1 VOL% (35.7-47.0); Hemoglobin 10.2 GM/DL (12.0-16.0); Immature Granulocytes % 2.1 %; Immature Granulocytes Absolute 0.32 #; Lymphocytes # 1.9 10*3/uL (1.4-4.0); Lymphocytes % 12.5 % (21.3-54.2); Mean Corpuscular HGB Conc 30.8 GM/DL (32-36); Mean Corpuscular Hemoglobin 27 PG (27-34); Mean Platelet Volume 11.9 FL (9.6-12.0); Monocytes # 0.8 10*3/uL (0.11-0.8); Monocytes % 5.5 % (1.7-12.7); Neutrophils # 11.9 10*3/uL (1.4-7.4); Neutrophils % 79.8 % (38.7-73.9); Platelet Count 348 T/CUMM (130-400); Red Blood Count 3.72 MC/CUMM (3.8-5.5); Red Cell Distribution Width 14.8 % (9.3-17.3); White Blood Count 14.9 T/CUMM (4-12)
[2017-10-18 06:47] LABS: Calcium 8.7 MG/DL (8.5-10.1); Osmolality,Calculated 289.5 MOS/KG (273-304); Potassium 4.1 MMOL/L (3.5-5.1)
[2017-10-18] MEDS: metFORMIN 500 MG TABLET PO SCH ×2 (09:56→19:16)
[2017-10-18] MEDS: amLODIPine 2.5 MG TABLET PO SCH (09:57)
[2017-10-18] MEDS: CHOLECALCIFEROL 1,000 UNIT TABLET PO SCH (09:57)
[2017-10-18] MEDS: DOCUSATE SODIUM 100 MG CAPSULE PO SCH ×2 (09:57→21:33)
[2017-10-18] MEDS: ASCORBIC ACID 500 MG TABLET PO SCH ×2 (09:57→21:30)
[2017-10-18] MEDS: METOPROLOL TARTRATE 25 MG TABLET PO SCH ×2 (09:58→21:30)
[2017-10-18] MEDS: PANTOPRAZOLE 40 MG TABLET PO SCH (09:58)
[2017-10-18] MEDS: FUROSEMIDE 40 MG/4 ML VIAL IV SCH (09:59)
[2017-10-18] MEDS: INSULIN REGULAR 100 UNIT/ML SUBCUT SCH ×4 (09:59→21:33)
[2017-10-18] MEDS: DESITIN 4OZ/NYSTATIN 15 GRAM MIXTURE PASTE TOP SCH ×2 (10:20→21:33)
[2017-10-18] MEDS: FLUCONAZOLE 200 MG TABLET PO SCH (15:47)
[2017-10-18] MEDS: MULTIVITAMIN (CENTRUM) TABLET PO SCH (21:30)
[2017-10-18] MEDS: PRAVASTATIN 40 MG TABLET PO SCH (21:30)
[2017-10-18] MEDS: ASPIRIN EC 81 MG TABLET PO SCH (21:30)
[2017-10-18] MEDS: LINEZOLID 600 MG TABLET PO SCH (21:31)
[2017-10-19 05:24] LABS: Basophils % 0.2 % (0.0-0.8); Hematocrit 31.9 VOL% (35.7-47.0); Hemoglobin 10.1 GM/DL (12.0-16.0); Immature Granulocytes % 3.2 %; Immature Granulocytes Absolute 0.48 #; Lymphocytes # 1.7 10*3/uL (1.4-4.0); Lymphocytes % 11.3 % (21.3-54.2); Mean Corpuscular HGB Conc 31.7 GM/DL (32-36); Mean Corpuscular Hemoglobin 28 PG (27-34); Mean Corpuscular Volume 89.1 FL (87-102); Mean Platelet Volume 10.7 FL (9.6-12.0); Monocytes # 0.7 10*3/uL (0.11-0.8); Monocytes % 4.6 % (1.7-12.7); Neutrophils # 12.2 10*3/uL (1.4-7.4); Neutrophils % 80.7 % (38.7-73.9); Platelet Count 396 T/CUMM (130-400); Red Blood Count 3.58 MC/CUMM (3.8-5.5); Red Cell Distribution Width 14.9 % (9.3-17.3); White Blood Count 15.1 T/CUMM (4-12)
[2017-10-19 05:57] LABS: Calcium 8.7 MG/DL (8.5-10.1); Osmolality,Calculated 296.4 MOS/KG (273-304); Potassium 4.8 MMOL/L (3.5-5.1)
[2017-10-19] MEDS: DILTIAZEM INJ 100 MG in SODIUM CHLORIDE 0.9% 100 ML IV SCH (06:08)
[2017-10-19] MEDS: MEROPENEM 1,000 MG in SYRINGE 1 EACH IV SCH ×3 (06:35→22:05)
[2017-10-19] MEDS: LEVOTHYROXINE 125 MCG TABLET PO SCH (06:36)
[2017-10-19] MEDS: IPRATROPIUM 500 MCG/2.5 ML NEB RESP TX SCH ×4 (08:14→20:25)
[2017-10-19] MEDS: metFORMIN 500 MG TABLET PO SCH (10:30)
[2017-10-19] MEDS: CHOLECALCIFEROL 1,000 UNIT TABLET PO SCH (10:30)
[2017-10-19] MEDS: ASCORBIC ACID 500 MG TABLET PO SCH ×2 (10:32→22:02)
[2017-10-19] MEDS: FLUCONAZOLE 200 MG TABLET PO SCH (10:32)
[2017-10-19] MEDS: METOPROLOL TARTRATE 25 MG TABLET PO SCH ×2 (10:33→22:02)
[2017-10-19] MEDS: PANTOPRAZOLE 40 MG TABLET PO SCH (10:33)
[2017-10-19] MEDS: amLODIPine 2.5 MG TABLET PO SCH (10:33)
[2017-10-19] MEDS: DOCUSATE SODIUM 100 MG CAPSULE PO SCH ×2 (10:34→22:05)
[2017-10-19] MEDS: INSULIN REGULAR 100 UNIT/ML SUBCUT SCH ×4 (10:34→22:05)
[2017-10-19] MEDS: LINEZOLID 600 MG TABLET PO SCH ×2 (10:34→22:02)
[2017-10-19] MEDS: BUDESONIDE/FORMOTEROL 160-4.5 INHALER 6 GM INH SCH ×2 (10:35→22:13)
[2017-10-19] MEDS: methylPREDNISolone SOD SUC 40 MG/1 ML VIAL IV SCH ×2 (10:40→22:03)
[2017-10-19] MEDS: FUROSEMIDE 40 MG/4 ML VIAL IV SCH (10:41)
[2017-10-19] MEDS: DESITIN 4OZ/NYSTATIN 15 GRAM MIXTURE PASTE TOP SCH ×2 (11:20→22:13)
[2017-10-19] MEDS: glyBURIDE 5 MG TABLET PO SCH (18:02)
[2017-10-19] MEDS: PRAVASTATIN 40 MG TABLET PO SCH (22:02)
[2017-10-19] MEDS: MULTIVITAMIN (CENTRUM) TABLET PO SCH (22:02)
[2017-10-19] MEDS: ASPIRIN EC 81 MG TABLET PO SCH (22:03)
[2017-10-20] MEDS: IPRATROPIUM 500 MCG/2.5 ML NEB RESP TX SCH ×4 (00:46→19:30)
[2017-10-20 05:11] LABS: Basophils % 0.2 % (0.0-0.8); Hematocrit 36.6 VOL% (35.7-47.0); Hemoglobin 11.3 GM/DL (12.0-16.0); Immature Granulocytes % 4.3 %; Immature Granulocytes Absolute 0.75 #; Lymphocytes # 2.6 10*3/uL (1.4-4.0); Mean Corpuscular HGB Conc 30.9 GM/DL (32-36); Mean Corpuscular Hemoglobin 27 PG (27-34); Mean Corpuscular Volume 88.8 FL (87-102); Mean Platelet Volume 11.1 FL (9.6-12.0); Monocytes # 0.9 10*3/uL (0.11-0.8); Monocytes % 4.9 % (1.7-12.7); NRBC # 0.02 10*3/uL; Neutrophils # 13.2 10*3/uL (1.4-7.4); Neutrophils % 75.6 % (38.7-73.9); Platelet Count 512 T/CUMM (130-400); Red Blood Count 4.12 MC/CUMM (3.8-5.5); Red Cell Distribution Width 15.2 % (9.3-17.3); White Blood Count 17.4 T/CUMM (4-12)
[2017-10-20 05:35] LABS: Calcium 9.2 MG/DL (8.5-10.1); Osmolality,Calculated 284.8 MOS/KG (273-304); Potassium 5.1 MMOL/L (3.5-5.1)
[2017-10-20 05:52] LABS: Band Neutrophils 1 % (0-10); Hypochromasia 1+; Lymphocytes 19 % (20-55); Nucleated Red Blood Cells 1 (0-5); Ovalocytes Slight; Platelet Estimate Increased; Segmented Neutrophils 74 % (50-85); Total Cells Counted 100
[2017-10-20] MEDS: MEROPENEM 1,000 MG in SYRINGE 1 EACH IV SCH (06:10)
[2017-10-20] MEDS: DILTIAZEM INJ 100 MG in SODIUM CHLORIDE 0.9% 100 ML IV SCH (06:31)
[2017-10-20] MEDS: LEVOTHYROXINE 125 MCG TABLET PO SCH (06:54)
[2017-10-20] MEDS: LINEZOLID 600 MG TABLET PO SCH ×2 (09:04→21:10)
[2017-10-20] MEDS: FLUCONAZOLE 200 MG TABLET PO SCH (09:04)
[2017-10-20] MEDS: CHOLECALCIFEROL 1,000 UNIT TABLET PO SCH (09:04)
[2017-10-20] MEDS: PANTOPRAZOLE 40 MG TABLET PO SCH (09:05)
[2017-10-20] MEDS: METOPROLOL TARTRATE 25 MG TABLET PO SCH ×2 (09:05→21:12)
[2017-10-20] MEDS: ASCORBIC ACID 500 MG TABLET PO SCH ×2 (09:05→21:10)
[2017-10-20] MEDS: glyBURIDE 5 MG TABLET PO SCH ×2 (09:05→17:19)
[2017-10-20] MEDS: methylPREDNISolone SOD SUC 40 MG/1 ML VIAL IV SCH ×2 (09:05→09:38)
[2017-10-20] MEDS: amLODIPine 2.5 MG TABLET PO SCH (09:05)
[2017-10-20] MEDS: FUROSEMIDE 40 MG/4 ML VIAL IV SCH ×2 (09:07→11:18)
[2017-10-20] MEDS: DESITIN 4OZ/NYSTATIN 15 GRAM MIXTURE PASTE TOP SCH ×2 (09:36→21:14)
[2017-10-20] MEDS: BUDESONIDE/FORMOTEROL 160-4.5 INHALER 6 GM INH SCH ×2 (09:36→21:15)
[2017-10-20] MEDS: DOCUSATE SODIUM 100 MG CAPSULE PO SCH (09:37)
[2017-10-20] MEDS: INSULIN REGULAR 100 UNIT/ML SUBCUT SCH ×4 (09:37→21:16)
[2017-10-20] MEDS: predniSONE 20 MG TABLET PO SCH (09:40)
[2017-10-20] MEDS: hydrALAZINE 25 MG TABLET PO SCH ×2 (10:05→21:11)
[2017-10-20] MEDS: FUROSEMIDE 40 MG TABLET PO SCH (10:05)
[2017-10-20] MEDS: MULTIVITAMIN (CENTRUM) TABLET PO SCH (21:10)
[2017-10-20] MEDS: ASPIRIN EC 81 MG TABLET PO SCH (21:11)
[2017-10-20] MEDS: PRAVASTATIN 40 MG TABLET PO SCH (21:11)
[2017-10-21] MEDS: IPRATROPIUM 500 MCG/2.5 ML NEB RESP TX SCH ×4 (00:37→18:57)
[2017-10-21 05:07] LABS: Basophils % 0.1 % (0.0-0.8); Eosinophils % 0.1 % (0.00-10.9); Hematocrit 34.2 VOL% (35.7-47.0); Hemoglobin 10.9 GM/DL (12.0-16.0); Immature Granulocytes % 2.6 %; Immature Granulocytes Absolute 0.41 #; Lymphocytes # 3.3 10*3/uL (1.4-4.0); Lymphocytes % 21.2 % (21.3-54.2); Mean Corpuscular HGB Conc 31.9 GM/DL (32-36); Mean Corpuscular Hemoglobin 28 PG (27-34); Mean Corpuscular Volume 87.5 FL (87-102); Monocytes # 1.5 10*3/uL (0.11-0.8); Monocytes % 9.5 % (1.7-12.7); NRBC # 0.03 10*3/uL; Neutrophils # 10.4 10*3/uL (1.4-7.4); Neutrophils % 66.5 % (38.7-73.9); Platelet Count 421 T/CUMM (130-400); Red Blood Count 3.91 MC/CUMM (3.8-5.5); Red Cell Distribution Width 15.6 % (9.3-17.3); White Blood Count 15.6 T/CUMM (4-12)
[2017-10-21 05:33] LABS: Calcium 8.5 MG/DL (8.5-10.1); Osmolality,Calculated 286.5 MOS/KG (273-304); Potassium 4.6 MMOL/L (3.5-5.1)
[2017-10-21] MEDS: DILTIAZEM INJ 100 MG in SODIUM CHLORIDE 0.9% 100 ML IV SCH (05:53)
[2017-10-21] MEDS: LEVOTHYROXINE 125 MCG TABLET PO SCH (06:09)
[2017-10-21] MEDS: INSULIN REGULAR 100 UNIT/ML SUBCUT SCH ×4 (07:54→21:28)
[2017-10-21] MEDS: CHOLECALCIFEROL 1,000 UNIT TABLET PO SCH (09:07)
[2017-10-21] MEDS: ASCORBIC ACID 500 MG TABLET PO SCH ×2 (09:07→21:29)
[2017-10-21] MEDS: METOPROLOL TARTRATE 25 MG TABLET PO SCH ×2 (09:08→21:28)
[2017-10-21] MEDS: LINEZOLID 600 MG TABLET PO SCH ×2 (09:08→21:28)
[2017-10-21] MEDS: amLODIPine 2.5 MG TABLET PO SCH (09:08)
[2017-10-21] MEDS: hydrALAZINE 25 MG TABLET PO SCH ×2 (09:08→21:28)
[2017-10-21] MEDS: FUROSEMIDE 40 MG TABLET PO SCH (09:08)
[2017-10-21] MEDS: predniSONE 20 MG TABLET PO SCH (09:08)
[2017-10-21] MEDS: PANTOPRAZOLE 40 MG TABLET PO SCH (09:08)
[2017-10-21] MEDS: FLUCONAZOLE 200 MG TABLET PO SCH (09:08)
[2017-10-21] MEDS: glyBURIDE 5 MG TABLET PO SCH ×2 (09:08→17:16)
[2017-10-21] MEDS: DESITIN 4OZ/NYSTATIN 15 GRAM MIXTURE PASTE TOP SCH ×2 (09:42→21:29)
[2017-10-21] MEDS: BUDESONIDE/FORMOTEROL 160-4.5 INHALER 6 GM INH SCH ×2 (09:42→21:29)
[2017-10-21] MEDS: PRAVASTATIN 40 MG TABLET PO SCH (21:28)
[2017-10-21] MEDS: ASPIRIN EC 81 MG TABLET PO SCH (21:28)
[2017-10-21] MEDS: MULTIVITAMIN (CENTRUM) TABLET PO SCH (21:28)
[2017-10-22] MEDS: IPRATROPIUM 500 MCG/2.5 ML NEB RESP TX SCH ×4 (00:50→19:40)
[2017-10-22] MEDS: LEVOTHYROXINE 125 MCG TABLET PO SCH (06:53)
[2017-10-22] MEDS: INSULIN REGULAR 100 UNIT/ML SUBCUT SCH ×4 (09:11→21:18)
[2017-10-22] MEDS ORDERED: glyBURIDE 5 MG TABLET PO ONE (09:26)
[2017-10-22] MEDS: METOPROLOL TARTRATE 25 MG TABLET PO SCH ×2 (09:28→21:10)
[2017-10-22] MEDS: hydrALAZINE 25 MG TABLET PO SCH ×2 (09:28→21:10)
[2017-10-22] MEDS: PANTOPRAZOLE 40 MG TABLET PO SCH (09:29)
[2017-10-22] MEDS: amLODIPine 5 MG TABLET PO SCH (09:29)
[2017-10-22] MEDS: FLUCONAZOLE 200 MG TABLET PO SCH (09:29)
[2017-10-22] MEDS: FUROSEMIDE 40 MG TABLET PO SCH (09:29)
[2017-10-22] MEDS: predniSONE 20 MG TABLET PO SCH (09:31)
[2017-10-22] MEDS: ASCORBIC ACID 500 MG TABLET PO SCH ×2 (09:31→21:14)
[2017-10-22] MEDS: CHOLECALCIFEROL 1,000 UNIT TABLET PO SCH (09:31)
[2017-10-22] MEDS: LINEZOLID 600 MG TABLET PO SCH ×2 (09:33→21:10)
[2017-10-22] MEDS: BUDESONIDE/FORMOTEROL 160-4.5 INHALER 6 GM INH SCH ×2 (09:34→21:19)
[2017-10-22] MEDS: DESITIN 4OZ/NYSTATIN 15 GRAM MIXTURE PASTE TOP SCH ×2 (13:29→21:19)
[2017-10-22] MEDS: metFORMIN 500 MG TABLET PO SCH (16:33)
[2017-10-22] MEDS: PRAVASTATIN 40 MG TABLET PO SCH (21:14)
[2017-10-22] MEDS: MULTIVITAMIN (CENTRUM) TABLET PO SCH (21:14)
[2017-10-22] MEDS: ASPIRIN EC 81 MG TABLET PO SCH (21:16)
[2017-10-23] MEDS: IPRATROPIUM 500 MCG/2.5 ML NEB RESP TX SCH ×4 (00:22→19:52)
[2017-10-23] MEDS: LEVOTHYROXINE 125 MCG TABLET PO SCH (06:23)
[2017-10-23] MEDS: CHOLECALCIFEROL 1,000 UNIT TABLET PO SCH (08:47)
[2017-10-23] MEDS: FUROSEMIDE 40 MG TABLET PO SCH (08:47)
[2017-10-23] MEDS: ASCORBIC ACID 500 MG TABLET PO SCH ×2 (08:47→21:23)
[2017-10-23] MEDS: INSULIN REGULAR 100 UNIT/ML SUBCUT SCH ×4 (08:47→22:35)
[2017-10-23] MEDS: glyBURIDE 5 MG TABLET PO SCH (08:49)
[2017-10-23] MEDS: FLUCONAZOLE 200 MG TABLET PO SCH (08:49)
[2017-10-23] MEDS: hydrALAZINE 25 MG TABLET PO SCH ×2 (08:50→21:23)
[2017-10-23] MEDS: LINEZOLID 600 MG TABLET PO SCH ×2 (08:50→21:23)
[2017-10-23] MEDS: METOPROLOL TARTRATE 25 MG TABLET PO SCH ×2 (08:51→21:23)
[2017-10-23] MEDS: amLODIPine 5 MG TABLET PO SCH (08:51)
[2017-10-23] MEDS: PANTOPRAZOLE 40 MG TABLET PO SCH (08:51)
[2017-10-23] MEDS: BUDESONIDE/FORMOTEROL 160-4.5 INHALER 6 GM INH SCH ×2 (08:53→21:23)
[2017-10-23] MEDS: DESITIN 4OZ/NYSTATIN 15 GRAM MIXTURE PASTE TOP SCH ×2 (08:53→21:23)
[2017-10-23] MEDS: predniSONE 20 MG TABLET PO SCH (08:53)
[2017-10-23] MEDS: metFORMIN 500 MG TABLET PO SCH (18:32)
[2017-10-23] MEDS: ASPIRIN EC 81 MG TABLET PO SCH (21:23)
[2017-10-23] MEDS: MULTIVITAMIN (CENTRUM) TABLET PO SCH (21:23)
[2017-10-23] MEDS: PRAVASTATIN 40 MG TABLET PO SCH (21:23)
[2017-10-24] MEDS: IPRATROPIUM 500 MCG/2.5 ML NEB RESP TX SCH ×4 (01:20→19:20)
[2017-10-24] MEDS: LEVOTHYROXINE 125 MCG TABLET PO SCH (06:19)
[2017-10-24] MEDS: INSULIN REGULAR 100 UNIT/ML SUBCUT SCH ×4 (08:24→22:01)
[2017-10-24] MEDS: FLUCONAZOLE 200 MG TABLET PO SCH (08:45)
[2017-10-24] MEDS: ASCORBIC ACID 500 MG TABLET PO SCH ×2 (08:46→21:26)
[2017-10-24] MEDS: CHOLECALCIFEROL 1,000 UNIT TABLET PO SCH (08:46)
[2017-10-24] MEDS: hydrALAZINE 25 MG TABLET PO SCH ×2 (08:46→21:26)
[2017-10-24] MEDS: LINEZOLID 600 MG TABLET PO SCH ×2 (08:46→21:26)
[2017-10-24] MEDS: DOCUSATE SODIUM 100 MG CAPSULE PO SCH ×3 (08:46→21:26)
[2017-10-24] MEDS: PANTOPRAZOLE 40 MG TABLET PO SCH (08:46)
[2017-10-24] MEDS: amLODIPine 5 MG TABLET PO SCH (08:47)
[2017-10-24] MEDS: FUROSEMIDE 40 MG TABLET PO SCH (08:47)
[2017-10-24] MEDS: predniSONE 20 MG TABLET PO SCH (08:47)
[2017-10-24] MEDS: glyBURIDE 5 MG TABLET PO SCH (08:47)
[2017-10-24] MEDS: DESITIN 4OZ/NYSTATIN 15 GRAM MIXTURE PASTE TOP SCH ×2 (08:48→22:02)
[2017-10-24] MEDS: METOPROLOL TARTRATE 25 MG TABLET PO SCH ×3 (08:48→22:01)
[2017-10-24] MEDS: BUDESONIDE/FORMOTEROL 160-4.5 INHALER 6 GM INH SCH ×2 (08:48→22:02)
[2017-10-24] MEDS: metFORMIN 500 MG TABLET PO SCH (16:47)
[2017-10-24] MEDS: ASPIRIN EC 81 MG TABLET PO SCH (21:26)
[2017-10-24] MEDS: MULTIVITAMIN (CENTRUM) TABLET PO SCH (21:26)
[2017-10-24] MEDS: PRAVASTATIN 40 MG TABLET PO SCH (21:26)
[2017-10-25] MEDS: IPRATROPIUM 500 MCG/2.5 ML NEB RESP TX SCH ×4 (00:41→19:34)
[2017-10-25 05:26] LABS: Basophils % 0.2 % (0.0-0.8); Eosinophils # 0.1 10*3/uL (0.0-0.87); Eosinophils % 0.9 % (0.00-10.9); Hematocrit 35.7 VOL% (35.7-47.0); Hemoglobin 11.4 GM/DL (12.0-16.0); Immature Granulocytes % 1.3 %; Immature Granulocytes Absolute 0.17 #; Lymphocytes # 2.8 10*3/uL (1.4-4.0); Mean Corpuscular HGB Conc 31.9 GM/DL (32-36); Mean Corpuscular Hemoglobin 28 PG (27-34); Mean Corpuscular Volume 87.9 FL (87-102); Mean Platelet Volume 11.5 FL (9.6-12.0); Monocytes # 1.2 10*3/uL (0.11-0.8); Monocytes % 9.2 % (1.7-12.7); Neutrophils # 8.5 10*3/uL (1.4-7.4); Neutrophils % 66.4 % (38.7-73.9); Platelet Count 278 T/CUMM (130-400); Red Blood Count 4.06 MC/CUMM (3.8-5.5); Red Cell Distribution Width 16.6 % (9.3-17.3); White Blood Count 12.8 T/CUMM (4-12)
[2017-10-25 05:49] LABS: Calcium 7.9 MG/DL (8.5-10.1); Osmolality,Calculated 285.5 MOS/KG (273-304); Potassium 4.7 MMOL/L (3.5-5.1)
[2017-10-25 05:58] LABS: Eosinophils 1 % (0-10); Giant Platelets Few; Hypochromasia 1+; Lymphocytes 22 % (20-55); Ovalocytes Slight; Platelet Estimate Adequate; Segmented Neutrophils 71 % (50-85); Total Cells Counted 100
[2017-10-25] MEDS: LEVOTHYROXINE 125 MCG TABLET PO SCH (06:36)
[2017-10-25] MEDS: LINEZOLID 600 MG TABLET PO SCH ×2 (09:03→21:16)
[2017-10-25] MEDS: ASCORBIC ACID 500 MG TABLET PO SCH ×2 (09:03→21:16)
[2017-10-25] MEDS: CHOLECALCIFEROL 1,000 UNIT TABLET PO SCH (09:03)
[2017-10-25] MEDS: metOLazone 2.5 MG TABLET PO SCH (09:03)
[2017-10-25] MEDS: PANTOPRAZOLE 40 MG TABLET PO SCH (09:03)
[2017-10-25] MEDS: METOPROLOL TARTRATE 25 MG TABLET PO SCH ×2 (09:04→21:16)
[2017-10-25] MEDS: predniSONE 10 MG TABLET PO SCH (09:04)
[2017-10-25] MEDS: FUROSEMIDE 40 MG TABLET PO SCH (09:04)
[2017-10-25] MEDS: glyBURIDE 5 MG TABLET PO SCH (09:04)
[2017-10-25] MEDS: hydrALAZINE 25 MG TABLET PO SCH ×2 (09:05→21:16)
[2017-10-25] MEDS: amLODIPine 5 MG TABLET PO SCH (09:05)
[2017-10-25] MEDS: DOCUSATE SODIUM 100 MG CAPSULE PO SCH ×2 (09:05→21:15)
[2017-10-25] MEDS: INSULIN REGULAR 100 UNIT/ML SUBCUT SCH ×4 (09:05→21:15)
[2017-10-25] MEDS: FLUCONAZOLE 200 MG TABLET PO SCH (09:05)
[2017-10-25] MEDS: BUDESONIDE/FORMOTEROL 160-4.5 INHALER 6 GM INH SCH ×2 (09:08→21:17)
[2017-10-25] MEDS: DESITIN 4OZ/NYSTATIN 15 GRAM MIXTURE PASTE TOP SCH ×2 (09:08→21:17)
[2017-10-25] MEDS: metFORMIN 500 MG TABLET PO SCH (16:32)
[2017-10-25] MEDS: MULTIVITAMIN (CENTRUM) TABLET PO SCH (21:16)
[2017-10-25] MEDS: ASPIRIN EC 81 MG TABLET PO SCH (21:16)
[2017-10-25] MEDS: PRAVASTATIN 40 MG TABLET PO SCH (21:16)
[2017-10-26] MEDS: IPRATROPIUM 500 MCG/2.5 ML NEB RESP TX SCH ×3 (01:30→13:14)
[2017-10-26] MEDS: LEVOTHYROXINE 125 MCG TABLET PO SCH (06:10)
[2017-10-26] MEDS: INSULIN REGULAR 100 UNIT/ML SUBCUT SCH ×2 (08:28→12:43)
[2017-10-26] MEDS: FUROSEMIDE 40 MG TABLET PO SCH (09:13)
[2017-10-26] MEDS: glyBURIDE 5 MG TABLET PO SCH (09:14)
[2017-10-26] MEDS: metOLazone 2.5 MG TABLET PO SCH (09:14)
[2017-10-26] MEDS: FLUCONAZOLE 200 MG TABLET PO SCH (09:14)
[2017-10-26] MEDS: CHOLECALCIFEROL 1,000 UNIT TABLET PO SCH (09:14)
[2017-10-26] MEDS: ASCORBIC ACID 500 MG TABLET PO SCH (09:15)
[2017-10-26] MEDS: amLODIPine 5 MG TABLET PO SCH (09:15)
[2017-10-26] MEDS: PANTOPRAZOLE 40 MG TABLET PO SCH (09:15)
[2017-10-26] MEDS: hydrALAZINE 25 MG TABLET PO SCH (09:15)
[2017-10-26] MEDS: predniSONE 10 MG TABLET PO SCH (09:15)
[2017-10-26] MEDS: LINEZOLID 600 MG TABLET PO SCH (09:15)
[2017-10-26] MEDS: BUDESONIDE/FORMOTEROL 160-4.5 INHALER 6 GM INH SCH (09:16)
[2017-10-26] MEDS: METOPROLOL TARTRATE 25 MG TABLET PO SCH (09:16)
[2017-10-26] MEDS: DOCUSATE SODIUM 100 MG CAPSULE PO SCH (09:17)
[2017-10-26] MEDS: DESITIN 4OZ/NYSTATIN 15 GRAM MIXTURE PASTE TOP SCH (09:17)
[2017-10-26 12:08] VITALS: BP 105/52
[2017-10-27] MEDS ORDERED: glyBURIDE 5 MG TABLET PO SCH (08:00)
== END 2017-10-26 16:18 | disposition home or self-care (01) | DRG 193 ==
LOC: N.ED 15:55 → N.EDINP 19:14 → SUATTDRO 19:14 → N.2E 19:59 → N.CC 10-14 05:45 → N.TELEN 10-15 03:41
PROVIDERS: ADMIT Hospitalist; ATTEND Hospitalist

== ENCOUNTER 2017-12-07 02:52 | Inpatient (IN) ==
[2017-11-30 11:43] LABS: Basophils % 0.3 % (0.0-0.8); Eosinophils % 0.3 % (0.00-10.9); Hematocrit 35.6 VOL% (35.7-47.0); Hemoglobin 11.3 GM/DL (12.0-16.0); Immature Granulocytes % 0.4 %; Immature Granulocytes Absolute 0.03 #; Lymphocytes # 2.4 10*3/uL (1.4-4.0); Lymphocytes % 34.1 % (21.3-54.2); Mean Corpuscular HGB Conc 31.7 GM/DL (32-36); Mean Corpuscular Hemoglobin 29 PG (27-34); Mean Corpuscular Volume 89.7 FL (87-102); Mean Platelet Volume 10.3 FL (9.6-12.0); Monocytes # 0.9 10*3/uL (0.11-0.8); Monocytes % 12.8 % (1.7-12.7); Neutrophils # 3.6 10*3/uL (1.4-7.4); Neutrophils % 52.1 % (38.7-73.9); Platelet Count 252 T/CUMM (130-400); Red Blood Count 3.97 MC/CUMM (3.8-5.5); Red Cell Distribution Width 17.6 % (9.3-17.3)
[2017-11-30 11:50] LABS: Apearance,Urine CLEAR (Clear); Bacteria,Urine Occasional /HPF (Few); Bilirubin,Urine Negative (Negative); Blood, Urine Negative (Negative); Glucose,Urine (UA) Negative (Negative); Hyaline Casts,Urine 4 /LPF (0-3); Ketones,Urine Negative (Negative); Mucus,Urine Occasional /LPF (Occasional); Nitrite,Urine Negative (Negative); Protein,Urine Negative; RBC,Urine 1 /HPF (0-4); Squamous Epithelial Cell,Urine Occasional /HPF (0-10); Urine Color Yellow (Yellow); Urine Urobilinogen < 2.0 EU/DL (0.2-1.0); WBC,Urine 4 /HPF (0-6)
[2017-11-30 12:10] LABS: Calcium 8.9 MG/DL (8.5-10.1); Osmolality,Calculated 293.5 MOS/KG (273-304); Potassium 2.9 MMOL/L (3.5-5.1)
[~2017-12-07 02:52] MED LIST: MAGNESIUM HYDROXIDE SUSP 30 ML UDCUP PO PRN; ONDANSETRON 4 MG/2 ML VIAL IV PRN
[2017-12-07] MEDS ORDERED: ALBUTEROL/IPRATROPIUM 3 ML NEB RESP TX PRN (03:02)
[2017-12-07] MEDS ORDERED: DEXTROSE 50% 25 GM/50 ML VIAL IV PRN (03:05)
[2017-12-07] MEDS ORDERED: GLUCAGON 1 MG VIAL IM PRN (03:05)
[2017-12-07] MEDS ORDERED: ALVIMOPAN 12 MG CAPSULE PO ONE (06:00)
[2017-12-07] MEDS ORDERED: cefTRIAXone 1,000 MG in SYRINGE 1 EACH IV ONE (06:00)
[2017-12-07] MEDS ORDERED: ALVIMOPAN 12 MG CAPSULE ONE (06:47)
[2017-12-07] MEDS ORDERED: cefTRIAXone 1,000 MG VIAL ONE (06:47)
[2017-12-07] MEDS ORDERED: ALBUTEROL/IPRATROPIUM 3 ML NEB RESP TX ONE ×2 (06:48→11:39)
[2017-12-07] MEDS: LEVOTHYROXINE 125 MCG TABLET PO SCH (06:51)
[2017-12-07] MEDS ORDERED: NALOXONE 0.4 MG/ML VIAL IV PRN (11:57)
[2017-12-07] MEDS ORDERED: MORPHINE PCA 30 MG/30 ML SYRINGE IV SCH (12:00)
[2017-12-07 12:20] LABS: Apearance,Urine CLEAR (Clear); Bilirubin,Urine Negative (Negative); Blood, Urine Negative (Negative); Glucose,Urine (UA) Negative (Negative); Hyaline Casts,Urine 6 /LPF (0-3); Ketones,Urine Negative (Negative); Mucus,Urine Occasional /LPF (Occasional); Nitrite,Urine Negative (Negative); Protein,Urine Negative; RBC,Urine <1 /HPF (0-4); Urine Color Yellow (Yellow); Urine Specific Gravity 1.013 (1.001-1.035); Urine Urobilinogen < 2.0 EU/DL (0.2-1.0); WBC,Urine <1 /HPF (0-6)
[2017-12-07] MEDS ORDERED: HYDROmorphone 2 MG/1 ML VIAL IV PRN (12:32)
[2017-12-07] MEDS ORDERED: PROPOFOL 200 MG/20 ML VIAL IV ONE (12:45)
[2017-12-07] MEDS ORDERED: SEVOFLURANE 1 UNIT/15 MINUTE INH ONE (12:45)
[2017-12-07] MEDS ORDERED: PHENYLEPHRINE 10 MG/1 ML VIAL IV ONE (12:46)
[2017-12-07] MEDS ORDERED: ROCURONIUM 100 MG/10 ML VIAL IV ONE (12:46)
[2017-12-07] MEDS ORDERED: ACETAMINOPHEN 1,000 MG/100 ML VIAL IV ONE (12:46)
[2017-12-07] MEDS ORDERED: ePHEDrine 50 MG/ML AMP ONE (12:46)
[2017-12-07] MEDS ORDERED: LACTATED RINGERS 2,000 ML IV ONE (12:46)
[2017-12-07] MEDS ORDERED: NEOSTIGMINE 10 MG/10 ML VIAL ONE (12:46)
[2017-12-07] MEDS ORDERED: ONDANSETRON 4 MG/2 ML VIAL ONE (12:46)
[2017-12-07] MEDS ORDERED: GLYCOPYRROLATE 0.4 MG/2 ML VIAL ONE (12:46)
[2017-12-07] MEDS ORDERED: HYDROmorphone 2 MG/1 ML VIAL ONE (13:08)
[2017-12-07] MEDS: INSULIN REGULAR 100 UNIT/ML SUBCUT SCH ×3 (13:44→21:17)
[2017-12-07] MEDS: METOPROLOL TARTRATE 25 MG TABLET PO SCH ×2 (13:45→21:13)
[2017-12-07] MEDS: PANTOPRAZOLE 40 MG TABLET PO SCH (13:45)
[2017-12-07] MEDS: SODIUM CHLORIDE 0.45% 1,000 ML IV SCH (14:20)
[2017-12-07] MEDS: ALBUTEROL/IPRATROPIUM 3 ML NEB RESP TX SCH (19:42)
[2017-12-07] MEDS: ALVIMOPAN 12 MG CAPSULE PO SCH (21:15)
[2017-12-08] MEDS: ALBUTEROL/IPRATROPIUM 3 ML NEB RESP TX SCH ×5 (00:22→19:36)
[2017-12-08] MEDS: SODIUM CHLORIDE 0.45% 1,000 ML IV SCH (03:41)
[2017-12-08 06:37] LABS: Basophils % 0.2 % (0.0-0.8); Hematocrit 32.4 VOL% (35.7-47.0); Hemoglobin 10.3 GM/DL (12.0-16.0); Immature Granulocytes % 0.6 %; Immature Granulocytes Absolute 0.07 #; Lymphocytes # 2.5 10*3/uL (1.4-4.0); Lymphocytes % 20.4 % (21.3-54.2); Mean Corpuscular HGB Conc 31.8 GM/DL (32-36); Mean Corpuscular Hemoglobin 29 PG (27-34); Mean Corpuscular Volume 89.5 FL (87-102); Mean Platelet Volume 12.1 FL (9.6-12.0); Monocytes # 1.4 10*3/uL (0.11-0.8); Monocytes % 11.7 % (1.7-12.7); Neutrophils # 8.1 10*3/uL (1.4-7.4); Neutrophils % 67.1 % (38.7-73.9); Platelet Count 302 T/CUMM (130-400); Red Blood Count 3.62 MC/CUMM (3.8-5.5); Red Cell Distribution Width 18.2 % (9.3-17.3)
[2017-12-08] MEDS: LEVOTHYROXINE 125 MCG TABLET PO SCH (06:49)
[2017-12-08 07:13] LABS: Calcium 8.2 MG/DL (8.5-10.1); Osmolality,Calculated 282.2 MOS/KG (273-304); Potassium 5.1 MMOL/L (3.5-5.1)
[2017-12-08 07:32] LABS: Hypochromasia 1+; Polychromasia Slight
[2017-12-08] MEDS: INSULIN GLARGINE 100 UNIT/ML SUBCUT SCH (09:21)
[2017-12-08] MEDS: INSULIN REGULAR 100 UNIT/ML SUBCUT SCH ×4 (09:21→20:56)
[2017-12-08] MEDS: ACETAMINOPHEN 325 MG TABLET PO PRN ×2 (09:23→20:55)
[2017-12-08] MEDS: ALVIMOPAN 12 MG CAPSULE PO SCH ×2 (09:23→20:55)
[2017-12-08] MEDS: PANTOPRAZOLE 40 MG TABLET PO SCH (09:23)
[2017-12-08] MEDS: glyBURIDE 5 MG TABLET PO SCH (09:23)
[2017-12-08] MEDS: METOPROLOL TARTRATE 25 MG TABLET PO SCH ×2 (09:24→20:55)
[2017-12-08] MEDS: DOCUSATE SODIUM 100 MG CAPSULE PO SCH ×2 (12:41→20:56)
[2017-12-08] MEDS: OXYBUTYNIN XL 10 MG TABLET PO SCH (12:41)
[2017-12-09] MEDS: ALBUTEROL/IPRATROPIUM 3 ML NEB RESP TX SCH ×4 (00:50→19:38)
[2017-12-09 06:00] LABS: Basophils % 0.3 % (0.0-0.8); Eosinophils % 0.3 % (0.00-10.9); Hemoglobin 9.3 GM/DL (12.0-16.0); Immature Granulocytes % 0.5 %; Immature Granulocytes Absolute 0.05 #; Lymphocytes # 2.3 10*3/uL (1.4-4.0); Lymphocytes % 23.1 % (21.3-54.2); Mean Corpuscular HGB Conc 32.1 GM/DL (32-36); Mean Corpuscular Hemoglobin 28 PG (27-34); Mean Corpuscular Volume 88.4 FL (87-102); Mean Platelet Volume 11.2 FL (9.6-12.0); Monocytes # 1.4 10*3/uL (0.11-0.8); Monocytes % 14.1 % (1.7-12.7); Neutrophils # 6.1 10*3/uL (1.4-7.4); Neutrophils % 61.7 % (38.7-73.9); Platelet Count 242 T/CUMM (130-400); Red Blood Count 3.28 MC/CUMM (3.8-5.5); White Blood Count 9.9 T/CUMM (4-12)
[2017-12-09] MEDS: LEVOTHYROXINE 125 MCG TABLET PO SCH (06:17)
[2017-12-09 06:37] LABS: Albumin 2.6 G/DL (3.4-5.0); Bilirubin,Total 0.8 MG/DL (0.2-1.0); Calcium 8.5 MG/DL (8.5-10.1); Osmolality,Calculated 284.5 MOS/KG (273-304); Potassium 4.1 MMOL/L (3.5-5.1); Total Protein 6.1 G/DL (6.4-8.3)
[2017-12-09] MEDS: INSULIN REGULAR 100 UNIT/ML SUBCUT SCH ×4 (08:42→20:46)
[2017-12-09] MEDS: METOPROLOL TARTRATE 25 MG TABLET PO SCH ×2 (09:32→20:46)
[2017-12-09] MEDS: ALVIMOPAN 12 MG CAPSULE PO SCH ×2 (09:32→20:45)
[2017-12-09] MEDS: POLYETHYLENE GLYCOL POWDER 17 GM PACK PO SCH (09:32)
[2017-12-09] MEDS: PANTOPRAZOLE 40 MG TABLET PO SCH (09:32)
[2017-12-09] MEDS: OXYBUTYNIN XL 10 MG TABLET PO SCH (09:32)
[2017-12-09] MEDS: glyBURIDE 5 MG TABLET PO SCH (09:32)
[2017-12-09] MEDS: INSULIN GLARGINE 100 UNIT/ML SUBCUT SCH (09:33)
[2017-12-09] MEDS: DOCUSATE SODIUM 100 MG CAPSULE PO SCH ×2 (09:33→20:45)
[2017-12-10] MEDS: ALBUTEROL/IPRATROPIUM 3 ML NEB RESP TX SCH ×4 (00:48→20:07)
[2017-12-10] MEDS: LEVOTHYROXINE 125 MCG TABLET PO SCH (06:15)
[2017-12-10 07:14] LABS: Basophils % 0.4 % (0.0-0.8); Eosinophils % 0.2 % (0.00-10.9); Hematocrit 28.2 VOL% (35.7-47.0); Hemoglobin 8.8 GM/DL (12.0-16.0); Immature Granulocytes % 0.7 %; Immature Granulocytes Absolute 0.06 #; Lymphocytes # 2.1 10*3/uL (1.4-4.0); Lymphocytes % 25.7 % (21.3-54.2); Mean Corpuscular HGB Conc 31.2 GM/DL (32-36); Mean Corpuscular Hemoglobin 28 PG (27-34); Mean Corpuscular Volume 90.1 FL (87-102); Mean Platelet Volume 11.4 FL (9.6-12.0); Monocytes # 1.1 10*3/uL (0.11-0.8); Monocytes % 13.5 % (1.7-12.7); Neutrophils # 4.9 10*3/uL (1.4-7.4); Neutrophils % 59.5 % (38.7-73.9); Platelet Count 243 T/CUMM (130-400); Red Blood Count 3.13 MC/CUMM (3.8-5.5); Red Cell Distribution Width 17.6 % (9.3-17.3); White Blood Count 8.2 T/CUMM (4-12)
[2017-12-10 07:45] LABS: Albumin 2.8 G/DL (3.4-5.0); Bilirubin,Total 0.4 MG/DL (0.2-1.0); Calcium 8.2 MG/DL (8.5-10.1); Osmolality,Calculated 281.4 MOS/KG (273-304); Potassium 4.2 MMOL/L (3.5-5.1); Total Protein 5.6 G/DL (6.4-8.3)
[2017-12-10] MEDS: INSULIN GLARGINE 100 UNIT/ML SUBCUT SCH (08:01)
[2017-12-10] MEDS: OXYBUTYNIN XL 10 MG TABLET PO SCH (08:03)
[2017-12-10] MEDS: METOPROLOL TARTRATE 25 MG TABLET PO SCH ×2 (08:03→21:00)
[2017-12-10] MEDS: ALVIMOPAN 12 MG CAPSULE PO SCH (08:03)
[2017-12-10] MEDS: glyBURIDE 5 MG TABLET PO SCH (08:03)
[2017-12-10] MEDS: POLYETHYLENE GLYCOL POWDER 17 GM PACK PO SCH (08:03)
[2017-12-10] MEDS: INSULIN REGULAR 100 UNIT/ML SUBCUT SCH ×4 (08:04→20:59)
[2017-12-10] MEDS: DOCUSATE SODIUM 100 MG CAPSULE PO SCH ×2 (08:04→21:00)
[2017-12-10] MEDS: PANTOPRAZOLE 40 MG TABLET PO SCH (08:04)
[2017-12-10] MEDS ORDERED: BISACODYL 10 MG SUPP RECTAL ONE (13:19)
[2017-12-11] MEDS: ALBUTEROL/IPRATROPIUM 3 ML NEB RESP TX SCH ×3 (00:53→14:33)
[2017-12-11] MEDS: LEVOTHYROXINE 125 MCG TABLET PO SCH (06:55)
[2017-12-11] MEDS: INSULIN REGULAR 100 UNIT/ML SUBCUT SCH ×3 (07:46→16:20)
[2017-12-11] MEDS: POLYETHYLENE GLYCOL POWDER 17 GM PACK PO SCH (09:09)
[2017-12-11] MEDS: INSULIN GLARGINE 100 UNIT/ML SUBCUT SCH (09:11)
[2017-12-11] MEDS: DOCUSATE SODIUM 100 MG CAPSULE PO SCH (09:12)
[2017-12-11] MEDS: OXYBUTYNIN XL 10 MG TABLET PO SCH (09:12)
[2017-12-11] MEDS: PANTOPRAZOLE 40 MG TABLET PO SCH (09:12)
[2017-12-11] MEDS: glyBURIDE 5 MG TABLET PO SCH (09:12)
[2017-12-11] MEDS: METOPROLOL TARTRATE 25 MG TABLET PO SCH (09:12)
[2017-12-11 15:44] VITALS: BP 117/59
== END 2017-12-11 18:00 | disposition home health service (06) | DRG 657 ==
LOC: N.SDSINP 02:52 → N.OR 04:35 → N.SDSINP 04:39 → EDSTATUS 07:30 → N.5E 13:42
PROVIDERS: ADMIT Internal Medicine; ATTEND Urology

== ENCOUNTER 2019-09-30 13:21 | Inpatient (IN) ==
[2019-09-30] MEDS ORDERED: ONDANSETRON 4 MG/2 ML VIAL IV ONE (13:40)
[2019-09-30] MEDS ORDERED: SODIUM CHLORIDE 0.9% 1,000 ML IV STA (14:35)
[2019-09-30] MEDS ORDERED: ONDANSETRON 4 MG/2 ML VIAL IV STA (14:35)
[2019-09-30] MEDS ORDERED: DEXAMETHASONE 10 MG/1 ML VIAL IV STA (15:14)
[2019-09-30] MEDS ORDERED: DEXTROSE 10% 250 ML BAG IV PRN (16:50)
[2019-09-30] MEDS ORDERED: GLUCAGON 1 MG VIAL IM PRN (16:50)
[2019-09-30] MEDS ORDERED: INFLUENZA VIRUS VACCINE 0.5 ML SYRINGE IM ONE (18:30)
[2019-09-30] MEDS: INSULIN LISPRO 100 UNIT/ML SUBCUT SCH ×2 (18:36→22:21)
[2019-09-30] MEDS ORDERED: DEXAMETHASONE 10 MG/1 ML VIAL IV SCH (21:00)
[2019-09-30] MEDS ORDERED: ALBUTEROL/IPRATROPIUM 3 ML NEB RESP TX PRN (21:25)
[2019-09-30] MEDS: ONDANSETRON 4 MG/2 ML VIAL IV PRN (22:20)
[2019-09-30] MEDS: DOCUSATE SODIUM 100 MG CAPSULE PO SCH ×2 (22:20→22:21)
[2019-09-30] MEDS: ASPIRIN EC 81 MG TABLET PO SCH (22:20)
[2019-10-01 05:43] LABS: Basophils % 0.1 % (0.0-0.8); Hematocrit 42.9 VOL% (35.7-47.0); Hemoglobin 13.4 GM/DL (12.0-16.0); Immature Granulocytes % 0.6 %; Immature Granulocytes Absolute 0.06 #; Lymphocytes # 2.1 10*3/uL (1.4-4.0); Lymphocytes % 21.5 % (21.3-54.2); Mean Corpuscular HGB Conc 31.2 GM/DL (32-36); Mean Corpuscular Volume 90.9 FL (87-102); Mean Platelet Volume 10.1 FL (9.6-12.0); Monocytes % 1.7 % (1.7-12.7); Neutrophils % 76.1 % (38.7-73.9); Platelet Count 265 T/CUMM (130-400); Red Blood Count 4.72 MC/CUMM (3.8-5.5); Red Cell Distribution Width 15.3 % (9.3-17.3); White Blood Count 9.7 T/CUMM (4-12)
[2019-10-01 06:06] LABS: Albumin 3.4 G/DL (3.4-5.0); Bilirubin,Total 1.3 MG/DL (0.2-1.0); Calcium 9.4 MG/DL (8.5-10.1); Total Protein 7.4 G/DL (6.4-8.3)
[2019-10-01] MEDS: SODIUM CHLORIDE 0.9% 1,000 ML IV SCH ×2 (06:11→21:06)
[2019-10-01] MEDS: LEVOTHYROXINE 150 MCG TABLET PO SCH (06:11)
[2019-10-01 06:15] LABS: Thyroid Stimulating Hormone 0.499 uIU/ml (0.358-3.74)
[2019-10-01] MEDS: DEXAMETHASONE INJ 20 MG in SODIUM CHLORIDE 0.9% 50 ML IV SCH ×2 (09:26→21:05)
[2019-10-01 10:23] LABS: Cancer Antigen 19-9 44.3 U/ML (0-37); Carcinoembryonic Antigen 1.3 NG/ML (0.0-5.0)
[2019-10-01] MEDS: DOCUSATE SODIUM 100 MG CAPSULE PO SCH ×4 (11:12→21:06)
[2019-10-01] MEDS: INSULIN LISPRO 100 UNIT/ML SUBCUT SCH ×4 (11:38→22:53)
[2019-10-01] MEDS: INSULIN GLARGINE 100 UNIT/ML SUBCUT SCH (12:39)
[2019-10-01] MEDS: glipiZIDE 5 MG TABLET PO SCH ×2 (12:39→18:29)
[2019-10-01] MEDS: PANTOPRAZOLE 40 MG TABLET PO SCH (12:39)
[2019-10-01] MEDS: ACETAMINOPHEN 325 MG TABLET PO PRN (12:43)
[2019-10-01] MEDS: IPRATROPIUM 500 MCG/2.5 ML NEB RESP TX SCH (19:51)
[2019-10-01] MEDS: ASPIRIN EC 81 MG TABLET PO SCH (21:05)
[2019-10-02] MEDS: IPRATROPIUM 500 MCG/2.5 ML NEB RESP TX SCH ×4 (00:20→20:08)
[2019-10-02] MEDS: LEVOTHYROXINE 150 MCG TABLET PO SCH (06:16)
[2019-10-02 06:25] LABS: Osmolality,Calculated 285.7 MOS/KG (273-304)
[2019-10-02] MEDS: amLODIPine 5 MG TABLET PO SCH (08:52)
[2019-10-02] MEDS: PANTOPRAZOLE 40 MG TABLET PO SCH (08:52)
[2019-10-02] MEDS: DOCUSATE SODIUM 100 MG CAPSULE PO SCH ×2 (08:52→21:37)
[2019-10-02] MEDS: glipiZIDE 5 MG TABLET PO SCH ×2 (08:52→16:54)
[2019-10-02] MEDS: INSULIN GLARGINE 100 UNIT/ML SUBCUT SCH (08:59)
[2019-10-02] MEDS: INSULIN LISPRO 100 UNIT/ML SUBCUT SCH ×4 (08:59→21:36)
[2019-10-02] MEDS: DEXAMETHASONE INJ 20 MG in SODIUM CHLORIDE 0.9% 50 ML IV SCH ×2 (09:00→21:36)
[2019-10-02 11:06] LABS: Apearance,Urine CLEAR (Clear); Bilirubin,Urine Negative (Negative); Blood, Urine Small mg/dL (Negative); Glucose,Urine (UA) Negative (Negative); Ketones,Urine Negative (Negative); Mucus,Urine Occasional /LPF (Occasional); Nitrite,Urine Negative (Negative); Protein,Urine Negative; RBC,Urine 2 /HPF (0-4); Squamous Epithelial Cell,Urine Occasional /HPF (0-10); Urine Color Yellow (Yellow); Urine Specific Gravity 1.027 (1.001-1.035); Urine Urobilinogen < 2.0 EU/DL (0.2-1.0); WBC,Urine 2 /HPF (0-6)
[2019-10-02] MEDS: SODIUM CHLORIDE 0.9% 1,000 ML IV SCH ×2 (14:58→21:39)
[2019-10-02] MEDS: ASPIRIN EC 81 MG TABLET PO SCH (21:37)
[2019-10-03] MEDS: IPRATROPIUM 500 MCG/2.5 ML NEB RESP TX SCH ×4 (01:09→19:03)
[2019-10-03 05:49] LABS: Hematocrit 40.4 VOL% (35.7-47.0); Hemoglobin 13.1 GM/DL (12.0-16.0); Red Blood Count 4.51 MC/CUMM (3.8-5.5); White Blood Count 12.6 T/CUMM (4-12)
[2019-10-03 05:50] LABS: Basophils % 0.2 % (0.0-0.8); Immature Granulocytes % 1.7 %; Immature Granulocytes Absolute 0.21 #; Lymphocytes # 1.6 10*3/uL (1.4-4.0); Lymphocytes % 12.5 % (21.3-54.2); Mean Corpuscular HGB Conc 32.4 GM/DL (32-36); Mean Corpuscular Volume 89.6 FL (87-102); Mean Platelet Volume 10.4 FL (9.6-12.0); Monocytes % 3.6 % (1.7-12.7); Platelet Count 226 T/CUMM (130-400); Red Cell Distribution Width 15.4 % (9.3-17.3)
[2019-10-03 06:06] LABS: Calcium 8.8 MG/DL (8.5-10.1); Osmolality,Calculated 285.7 MOS/KG (273-304)
[2019-10-03] MEDS: LEVOTHYROXINE 150 MCG TABLET PO SCH (07:15)
[2019-10-03] MEDS: INSULIN LISPRO 100 UNIT/ML SUBCUT SCH ×4 (08:55→21:52)
[2019-10-03] MEDS ORDERED: MIDAZOLAM 2 MG/2 ML VIAL ONE (08:56)
[2019-10-03] MEDS: DOCUSATE SODIUM 100 MG CAPSULE PO SCH ×2 (09:00→21:52)
[2019-10-03] MEDS ORDERED: PROMETHAZINE 25 MG/1 ML VIAL IM ONE (09:00)
[2019-10-03] MEDS ORDERED: MEPERIDINE 50 MG/1 ML VIAL IM ONE (09:00)
[2019-10-03] MEDS ORDERED: LIDOCAINE 1% 20 ML VIAL MISC INJ ONE (09:30)
[2019-10-03] MEDS ORDERED: LIDOCAINE 2% VISCOUS 100 ML BOTTLE SWISH/SPIT ONE (09:30)
[2019-10-03] MEDS ORDERED: LIDOCAINE 2% 20 ML VIAL RESP TX ONE (09:30)
[2019-10-03] MEDS ORDERED: MIDAZOLAM 2 MG/2 ML VIAL IV ONE (09:30)
[2019-10-03] MEDS: DEXAMETHASONE INJ 20 MG in SODIUM CHLORIDE 0.9% 50 ML IV SCH ×2 (12:18→21:51)
[2019-10-03] MEDS: INSULIN GLARGINE 100 UNIT/ML SUBCUT SCH (12:19)
[2019-10-03] MEDS: amLODIPine 5 MG TABLET PO SCH (12:20)
[2019-10-03] MEDS: PANTOPRAZOLE 40 MG TABLET PO SCH (12:20)
[2019-10-03] MEDS: glipiZIDE 5 MG TABLET PO SCH ×2 (12:20→18:37)
[2019-10-03] MEDS: SODIUM CHLORIDE 0.9% 1,000 ML IV SCH ×2 (12:28→18:36)
[2019-10-03] MEDS: ASPIRIN EC 81 MG TABLET PO SCH (21:51)
[2019-10-04] MEDS: IPRATROPIUM 500 MCG/2.5 ML NEB RESP TX SCH ×4 (01:34→20:12)
[2019-10-04] MEDS: SODIUM CHLORIDE 0.9% 1,000 ML IV SCH (04:45)
[2019-10-04 05:29] LABS: Calcium 8.7 MG/DL (8.5-10.1); Osmolality,Calculated 287.8 MOS/KG (273-304)
[2019-10-04] MEDS: LEVOTHYROXINE 150 MCG TABLET PO SCH (06:28)
[2019-10-04] MEDS: glipiZIDE 5 MG TABLET PO SCH ×2 (09:25→17:17)
[2019-10-04] MEDS: INSULIN GLARGINE 100 UNIT/ML SUBCUT SCH (09:26)
[2019-10-04] MEDS: amLODIPine 5 MG TABLET PO SCH (09:26)
[2019-10-04] MEDS: DOCUSATE SODIUM 100 MG CAPSULE PO SCH ×2 (09:26→21:00)
[2019-10-04] MEDS: INSULIN LISPRO 100 UNIT/ML SUBCUT SCH ×4 (09:27→22:11)
[2019-10-04] MEDS: PANTOPRAZOLE 40 MG TABLET PO SCH (10:52)
[2019-10-04] MEDS: DEXAMETHASONE INJ 20 MG in SODIUM CHLORIDE 0.9% 50 ML IV SCH ×2 (10:52→21:01)
[2019-10-04] MEDS ORDERED: BISACODYL 10 MG SUPP RECTAL ONE (12:43)
[2019-10-04] MEDS: ASPIRIN EC 81 MG TABLET PO SCH (21:01)
[2019-10-05] MEDS: SODIUM CHLORIDE 0.9% 1,000 ML IV SCH ×4 (00:32→18:16)
[2019-10-05] MEDS: IPRATROPIUM 500 MCG/2.5 ML NEB RESP TX SCH ×4 (01:59→19:49)
[2019-10-05] MEDS: ONDANSETRON 4 MG/2 ML VIAL IV PRN (03:30)
[2019-10-05 04:36] LABS: Basophils # 0.1 10*3/uL (0.0-0.2); Basophils % 0.4 % (0.0-0.8); Hematocrit 40.8 VOL% (35.7-47.0); Immature Granulocytes % 3.8 %; Immature Granulocytes Absolute 0.48 #; Lymphocytes # 1.2 10*3/uL (1.4-4.0); Lymphocytes % 9.3 % (21.3-54.2); Mean Corpuscular HGB Conc 31.9 GM/DL (32-36); Mean Corpuscular Volume 89.9 FL (87-102); Mean Platelet Volume 10.7 FL (9.6-12.0); Monocytes % 4.6 % (1.7-12.7); NRBC # 0.02 10*3/uL; Neutrophils % 81.9 % (38.7-73.9); Platelet Count 263 T/CUMM (130-400); Red Blood Count 4.54 MC/CUMM (3.8-5.5); Red Cell Distribution Width 15.4 % (9.3-17.3); White Blood Count 12.7 T/CUMM (4-12)
[2019-10-05 05:09] LABS: Calcium 8.4 MG/DL (8.5-10.1); Osmolality,Calculated 287.7 MOS/KG (273-304)
[2019-10-05] MEDS: LEVOTHYROXINE 150 MCG TABLET PO SCH (06:19)
[2019-10-05] MEDS: INSULIN LISPRO 100 UNIT/ML SUBCUT SCH ×4 (08:31→21:03)
[2019-10-05] MEDS: INSULIN GLARGINE 100 UNIT/ML SUBCUT SCH (10:18)
[2019-10-05] MEDS: glipiZIDE 5 MG TABLET PO SCH ×2 (10:19→17:25)
[2019-10-05] MEDS: DEXAMETHASONE INJ 20 MG in SODIUM CHLORIDE 0.9% 50 ML IV SCH ×2 (10:19→21:04)
[2019-10-05] MEDS: DOCUSATE SODIUM 100 MG CAPSULE PO SCH ×2 (10:19→21:03)
[2019-10-05] MEDS: amLODIPine 5 MG TABLET PO SCH (10:19)
[2019-10-05] MEDS: PANTOPRAZOLE 40 MG TABLET PO SCH (10:19)
[2019-10-05] MEDS: ASPIRIN EC 81 MG TABLET PO SCH (21:03)
[2019-10-06] MEDS: IPRATROPIUM 500 MCG/2.5 ML NEB RESP TX SCH ×4 (01:16→20:10)
[2019-10-06] MEDS: LEVOTHYROXINE 150 MCG TABLET PO SCH (05:25)
[2019-10-06] MEDS: ACETAMINOPHEN 325 MG TABLET PO PRN (05:25)
[2019-10-06] MEDS: SODIUM CHLORIDE 0.9% 1,000 ML IV SCH ×2 (05:26→17:49)
[2019-10-06 06:23] LABS: Basophils # 0.1 10*3/uL (0.0-0.2); Basophils % 0.4 % (0.0-0.8); Hemoglobin 13.1 GM/DL (12.0-16.0); Immature Granulocytes % 4.4 %; Immature Granulocytes Absolute 0.55 #; Lymphocytes # 1.4 10*3/uL (1.4-4.0); Lymphocytes % 10.9 % (21.3-54.2); Mean Corpuscular HGB Conc 31.2 GM/DL (32-36); Mean Corpuscular Volume 90.9 FL (87-102); Monocytes % 4.5 % (1.7-12.7); Neutrophils % 79.8 % (38.7-73.9); Platelet Count 237 T/CUMM (130-400); Red Blood Count 4.62 MC/CUMM (3.8-5.5); Red Cell Distribution Width 15.3 % (9.3-17.3); White Blood Count 12.4 T/CUMM (4-12)
[2019-10-06 06:47] LABS: Calcium 8.2 MG/DL (8.5-10.1); Osmolality,Calculated 286.7 MOS/KG (273-304)
[2019-10-06 06:49] LABS: Anisocytosis 1+; Eosinophils 2 % (0-10); Lymphocytes 14 % (20-55); Platelet Estimate Adequate; Segmented Neutrophils 74 % (50-85); Total Cells Counted 100
[2019-10-06] MEDS: INSULIN LISPRO 100 UNIT/ML SUBCUT SCH ×4 (08:16→20:26)
[2019-10-06] MEDS: DEXAMETHASONE INJ 20 MG in SODIUM CHLORIDE 0.9% 50 ML IV SCH ×2 (10:40→20:26)
[2019-10-06] MEDS: INSULIN GLARGINE 100 UNIT/ML SUBCUT SCH (10:40)
[2019-10-06] MEDS: amLODIPine 5 MG TABLET PO SCH (10:41)
[2019-10-06] MEDS: glipiZIDE 5 MG TABLET PO SCH ×2 (10:41→17:49)
[2019-10-06] MEDS: PANTOPRAZOLE 40 MG TABLET PO SCH (10:41)
[2019-10-06] MEDS: DOCUSATE SODIUM 100 MG CAPSULE PO SCH ×2 (10:41→20:26)
[2019-10-06] MEDS ORDERED: BISACODYL 10 MG SUPP RECTAL ONE ×2 (11:16→17:56)
[2019-10-06] MEDS: ASPIRIN EC 81 MG TABLET PO SCH (20:26)
[2019-10-07] MEDS: IPRATROPIUM 500 MCG/2.5 ML NEB RESP TX SCH ×4 (00:05→19:10)
[2019-10-07 04:08] LABS: Basophils # 0.1 10*3/uL (0.0-0.2); Basophils % 0.5 % (0.0-0.8); Hematocrit 40.2 VOL% (35.7-47.0); Immature Granulocytes % 4.4 %; Immature Granulocytes Absolute 0.57 #; Lymphocytes % 7.9 % (21.3-54.2); Mean Corpuscular HGB Conc 32.3 GM/DL (32-36); Mean Corpuscular Volume 88.4 FL (87-102); Mean Platelet Volume 10.5 FL (9.6-12.0); Monocytes % 4.6 % (1.7-12.7); NRBC # 0.02 10*3/uL; Neutrophils % 82.6 % (38.7-73.9); Platelet Count 231 T/CUMM (130-400); Red Blood Count 4.55 MC/CUMM (3.8-5.5); Red Cell Distribution Width 15.4 % (9.3-17.3); White Blood Count 12.8 T/CUMM (4-12)
[2019-10-07 04:35] LABS: Calcium 8.2 MG/DL (8.5-10.1); Osmolality,Calculated 287.7 MOS/KG (273-304)
[2019-10-07 04:37] LABS: Hypochromasia 1+; Lymphocytes 6 % (20-55); Microcytosis Slight; Segmented Neutrophils 88 % (50-85); Total Cells Counted 100
[2019-10-07 04:38] LABS: Platelet Estimate Normal
[2019-10-07] MEDS: LEVOTHYROXINE 150 MCG TABLET PO SCH (06:26)
[2019-10-07] MEDS: INSULIN LISPRO 100 UNIT/ML SUBCUT SCH ×4 (09:52→22:44)
[2019-10-07] MEDS: INSULIN GLARGINE 100 UNIT/ML SUBCUT SCH (09:53)
[2019-10-07] MEDS: amLODIPine 5 MG TABLET PO SCH (09:54)
[2019-10-07] MEDS: PANTOPRAZOLE 40 MG TABLET PO SCH (09:54)
[2019-10-07] MEDS: DOCUSATE SODIUM 100 MG CAPSULE PO SCH ×2 (09:54→22:04)
[2019-10-07] MEDS: glipiZIDE 5 MG TABLET PO SCH ×2 (09:54→17:48)
[2019-10-07] MEDS: DEXAMETHASONE INJ 20 MG in SODIUM CHLORIDE 0.9% 50 ML IV SCH ×2 (09:56→22:05)
[2019-10-07] MEDS: SODIUM CHLORIDE 0.9% 1,000 ML IV SCH ×2 (09:57→11:23)
[2019-10-07] MEDS: ASPIRIN EC 81 MG TABLET PO SCH (22:04)
[2019-10-07] MEDS: cefTRIAXone 500 MG in SYRINGE 1 EACH IV SCH (22:44)
[2019-10-08] MEDS: SODIUM CHLORIDE 0.9% 1,000 ML IV SCH ×3 (00:32→17:50)
[2019-10-08] MEDS: ONDANSETRON 4 MG/2 ML VIAL IV PRN (00:34)
[2019-10-08] MEDS: IPRATROPIUM 500 MCG/2.5 ML NEB RESP TX SCH ×4 (05:12→19:58)
[2019-10-08] MEDS: LEVOTHYROXINE 150 MCG TABLET PO SCH (06:20)
[2019-10-08] MEDS: DEXAMETHASONE INJ 20 MG in SODIUM CHLORIDE 0.9% 50 ML IV SCH ×2 (09:10→20:58)
[2019-10-08] MEDS: DOCUSATE SODIUM 100 MG CAPSULE PO SCH ×2 (09:10→20:58)
[2019-10-08] MEDS: glipiZIDE 5 MG TABLET PO SCH ×2 (09:10→16:17)
[2019-10-08] MEDS: INSULIN LISPRO 100 UNIT/ML SUBCUT SCH ×4 (09:10→21:28)
[2019-10-08] MEDS: amLODIPine 5 MG TABLET PO SCH (09:11)
[2019-10-08] MEDS: INSULIN GLARGINE 100 UNIT/ML SUBCUT SCH (09:11)
[2019-10-08] MEDS: PANTOPRAZOLE 40 MG TABLET PO SCH (09:11)
[2019-10-08] MEDS: ACETAMINOPHEN 325 MG TABLET PO PRN ×2 (10:33→23:35)
[2019-10-08] MEDS: cefTRIAXone 500 MG in SYRINGE 1 EACH IV SCH (20:55)
[2019-10-08] MEDS: ASPIRIN EC 81 MG TABLET PO SCH (20:57)
[2019-10-09] MEDS: IPRATROPIUM 500 MCG/2.5 ML NEB RESP TX SCH ×4 (00:04→20:10)
[2019-10-09] MEDS: ONDANSETRON 4 MG/2 ML VIAL IV PRN ×2 (01:00→14:53)
[2019-10-09] MEDS: LEVOTHYROXINE 150 MCG TABLET PO SCH (05:05)
[2019-10-09] MEDS: INSULIN LISPRO 100 UNIT/ML SUBCUT SCH ×4 (08:18→23:26)
[2019-10-09] MEDS ORDERED: ATEZOLIZUMAB 1,200 MG in SODIUM CHLORIDE 0.9% 250 ML IV ONE (08:31)
[2019-10-09] MEDS ORDERED: GRANISETRON 1 MG/1 ML VIAL IV SCH (09:00)
[2019-10-09] MEDS ORDERED: ETOPOSIDE 100 MG in SODIUM CHLORIDE 0.9% 500 ML IV SCH (09:00)
[2019-10-09] MEDS ORDERED: allopurinoL 300 MG TABLET PO SCH (09:30)
[2019-10-09] MEDS: SODIUM CHLORIDE 0.9% 1,000 ML IV SCH ×2 (09:42→12:39)
[2019-10-09] MEDS: PANTOPRAZOLE 40 MG TABLET PO SCH (09:44)
[2019-10-09] MEDS: DOCUSATE SODIUM 100 MG CAPSULE PO SCH ×2 (09:44→21:05)
[2019-10-09] MEDS: amLODIPine 5 MG TABLET PO SCH (09:44)
[2019-10-09] MEDS: glipiZIDE 5 MG TABLET PO SCH ×2 (09:44→16:57)
[2019-10-09] MEDS: INSULIN GLARGINE 100 UNIT/ML SUBCUT SCH (09:45)
[2019-10-09] MEDS: DEXAMETHASONE INJ 20 MG in SODIUM CHLORIDE 0.9% 50 ML IV SCH (10:45)
[2019-10-09] MEDS: ACETAMINOPHEN 325 MG TABLET PO PRN (14:53)
[2019-10-09] MEDS: cefTRIAXone 500 MG in SYRINGE 1 EACH IV SCH (21:04)
[2019-10-09] MEDS: ASPIRIN EC 81 MG TABLET PO SCH (21:05)
[2019-10-10] MEDS: IPRATROPIUM 500 MCG/2.5 ML NEB RESP TX SCH ×4 (00:29→19:34)
[2019-10-10] MEDS: ACETAMINOPHEN 325 MG TABLET PO PRN (04:11)
[2019-10-10] MEDS: LEVOTHYROXINE 150 MCG TABLET PO SCH (05:23)
[2019-10-10 05:54] LABS: Basophils # 0.1 10*3/uL (0.0-0.2); Basophils % 0.4 % (0.0-0.8); Hematocrit 39.3 VOL% (35.7-47.0); Hemoglobin 12.4 GM/DL (12.0-16.0); Immature Granulocytes % 4.3 %; Immature Granulocytes Absolute 0.51 #; Lymphocytes # 1.2 10*3/uL (1.4-4.0); Lymphocytes % 9.6 % (21.3-54.2); Mean Corpuscular HGB Conc 31.6 GM/DL (32-36); Mean Corpuscular Volume 92.3 FL (87-102); Mean Platelet Volume 10.3 FL (9.6-12.0); Monocytes % 9.4 % (1.7-12.7); Neutrophils % 76.3 % (38.7-73.9); Platelet Count 193 T/CUMM (130-400); Red Blood Count 4.26 MC/CUMM (3.8-5.5); Red Cell Distribution Width 16.5 % (9.3-17.3); White Blood Count 11.9 T/CUMM (4-12)
[2019-10-10 06:15] LABS: Albumin 2.3 G/DL (3.4-5.0); Bilirubin,Total 0.9 MG/DL (0.2-1.0); Calcium 8.5 MG/DL (8.5-10.1); Osmolality,Calculated 288.4 MOS/KG (273-304); Total Protein 5.1 G/DL (6.4-8.3)
[2019-10-10 06:26] LABS: Lymphocytes 13 % (20-55); Platelet Estimate Adequate; Segmented Neutrophils 80 % (50-85); Total Cells Counted 100
[2019-10-10 06:27] LABS: Hypochromasia Slight; Microcytosis Slight; Ovalocytes Slight
[2019-10-10] MEDS: INSULIN LISPRO 100 UNIT/ML SUBCUT SCH ×4 (07:52→23:49)
[2019-10-10] MEDS: INSULIN GLARGINE 100 UNIT/ML SUBCUT SCH (08:33)
[2019-10-10] MEDS: MAGNESIUM HYDROXIDE SUSP 30 ML UDCUP PO PRN (08:34)
[2019-10-10] MEDS: amLODIPine 5 MG TABLET PO SCH (08:34)
[2019-10-10] MEDS: DOCUSATE SODIUM 100 MG CAPSULE PO SCH ×2 (08:34→21:18)
[2019-10-10] MEDS: glipiZIDE 5 MG TABLET PO SCH ×2 (08:34→17:41)
[2019-10-10] MEDS: PANTOPRAZOLE 40 MG TABLET PO SCH (08:34)
[2019-10-10] MEDS: SODIUM CHLORIDE 0.9% 1,000 ML IV SCH ×2 (12:43→12:44)
[2019-10-10] MEDS ORDERED: BISACODYL 5 MG TABLET PO ONE (18:26)
[2019-10-10] MEDS: ASPIRIN EC 81 MG TABLET PO SCH (21:18)
[2019-10-10] MEDS: cefTRIAXone 500 MG in SYRINGE 1 EACH IV SCH (21:19)
[2019-10-10] MEDS: allopurinoL 300 MG TABLET PO SCH (23:49)
[2019-10-11] MEDS: ONDANSETRON 4 MG/2 ML VIAL IV PRN ×2 (00:45→05:13)
[2019-10-11] MEDS: IPRATROPIUM 500 MCG/2.5 ML NEB RESP TX SCH ×4 (00:47→19:30)
[2019-10-11] MEDS: SODIUM CHLORIDE 0.9% 1,000 ML IV SCH ×2 (01:45→23:34)
[2019-10-11 04:40] LABS: Basophils % 0.3 % (0.0-0.8); Eosinophils # 0.1 10*3/uL (0.0-0.87); Eosinophils % 0.4 % (0.00-10.9); Hematocrit 39.9 VOL% (35.7-47.0); Hemoglobin 12.7 GM/DL (12.0-16.0); Immature Granulocytes % 2.6 %; Immature Granulocytes Absolute 0.35 #; Lymphocytes # 1.3 10*3/uL (1.4-4.0); Lymphocytes % 9.3 % (21.3-54.2); Mean Corpuscular HGB Conc 31.8 GM/DL (32-36); Mean Corpuscular Volume 91.5 FL (87-102); Mean Platelet Volume 10.3 FL (9.6-12.0); Monocytes % 8.5 % (1.7-12.7); Neutrophils % 78.9 % (38.7-73.9); Platelet Count 189 T/CUMM (130-400); Red Blood Count 4.36 MC/CUMM (3.8-5.5); Red Cell Distribution Width 16.8 % (9.3-17.3); White Blood Count 13.6 T/CUMM (4-12)
[2019-10-11 05:12] LABS: Albumin 2.4 G/DL (3.4-5.0); Bilirubin,Total 0.6 MG/DL (0.2-1.0); Calcium 8.1 MG/DL (8.5-10.1); Osmolality,Calculated 285.5 MOS/KG (273-304); Total Protein 5.3 G/DL (6.4-8.3)
[2019-10-11] MEDS: LEVOTHYROXINE 150 MCG TABLET PO SCH (05:16)
[2019-10-11] MEDS: amLODIPine 5 MG TABLET PO SCH (09:22)
[2019-10-11] MEDS: INSULIN GLARGINE 100 UNIT/ML SUBCUT SCH (09:22)
[2019-10-11] MEDS: DOCUSATE SODIUM 100 MG CAPSULE PO SCH ×2 (09:22→21:18)
[2019-10-11] MEDS: PANTOPRAZOLE 40 MG TABLET PO SCH (09:22)
[2019-10-11] MEDS: glipiZIDE 5 MG TABLET PO SCH ×2 (09:22→17:31)
[2019-10-11] MEDS: INSULIN LISPRO 100 UNIT/ML SUBCUT SCH ×4 (09:23→21:19)
[2019-10-11] MEDS ORDERED: FAMOTIDINE 20 MG TABLET PO ONE (12:00)
[2019-10-11] MEDS ORDERED: GRANISETRON 1 MG/1 ML VIAL IV ONE (12:00)
[2019-10-11] MEDS ORDERED: ATEZOLIZUMAB 1,200 MG in SODIUM CHLORIDE 0.9% 250 ML IV ONE (12:00)
[2019-10-11] MEDS ORDERED: diphenhydrAMINE CAP 50 MG CAPSULE PO ONE (12:00)
[2019-10-11] MEDS: ETOPOSIDE 100 MG in SODIUM CHLORIDE 0.9% 500 ML IV SCH (14:49)
[2019-10-11] MEDS: SIMVASTATIN 20 MG TABLET PO SCH (21:18)
[2019-10-11] MEDS: allopurinoL 300 MG TABLET PO SCH (21:18)
[2019-10-11] MEDS: ASPIRIN EC 81 MG TABLET PO SCH (21:18)
[2019-10-11] MEDS: cefTRIAXone 500 MG in SYRINGE 1 EACH IV SCH (21:23)
[2019-10-12] MEDS: IPRATROPIUM 500 MCG/2.5 ML NEB RESP TX SCH ×4 (00:34→19:21)
[2019-10-12] MEDS: ONDANSETRON 4 MG/2 ML VIAL IV PRN (05:04)
[2019-10-12] MEDS: LEVOTHYROXINE 150 MCG TABLET PO SCH (05:55)
[2019-10-12 07:06] LABS: Basophils % 0.2 % (0.0-0.8); Eosinophils # 0.1 10*3/uL (0.0-0.87); Eosinophils % 0.4 % (0.00-10.9); Hematocrit 39.8 VOL% (35.7-47.0); Hemoglobin 12.4 GM/DL (12.0-16.0); Immature Granulocytes % 1.3 %; Immature Granulocytes Absolute 0.17 #; Lymphocytes # 0.8 10*3/uL (1.4-4.0); Mean Corpuscular HGB Conc 31.2 GM/DL (32-36); Mean Corpuscular Volume 92.3 FL (87-102); Mean Platelet Volume 10.8 FL (9.6-12.0); Monocytes % 9.9 % (1.7-12.7); Neutrophils % 82.2 % (38.7-73.9); Platelet Count 143 T/CUMM (130-400); Red Blood Count 4.31 MC/CUMM (3.8-5.5); White Blood Count 12.7 T/CUMM (4-12)
[2019-10-12 07:40] LABS: Osmolality,Calculated 282.5 MOS/KG (273-304)
[2019-10-12 07:45] LABS: Albumin 2.4 G/DL (3.4-5.0); Bilirubin,Total 0.8 MG/DL (0.2-1.0); Calcium 7.9 MG/DL (8.5-10.1); Osmolality,Calculated 282.5 MOS/KG (273-304); Total Protein 5.5 G/DL (6.4-8.3)
[2019-10-12 07:53] LABS: Risk Ratio 4.05; VLDL CHOLESTEROL 24.4 MG/DL
[2019-10-12] MEDS: INSULIN LISPRO 100 UNIT/ML SUBCUT SCH ×3 (08:15→16:26)
[2019-10-12] MEDS: PANTOPRAZOLE 40 MG TABLET PO SCH (09:32)
[2019-10-12] MEDS: amLODIPine 5 MG TABLET PO SCH (09:32)
[2019-10-12] MEDS: DOCUSATE SODIUM 100 MG CAPSULE PO SCH ×2 (09:32→21:32)
[2019-10-12] MEDS: glipiZIDE 5 MG TABLET PO SCH ×2 (09:32→17:28)
[2019-10-12] MEDS: SODIUM CHLORIDE 0.9% 1,000 ML IV SCH ×2 (09:33→21:32)
[2019-10-12] MEDS: INSULIN GLARGINE 100 UNIT/ML SUBCUT SCH (09:33)
[2019-10-12] MEDS: ETOPOSIDE 100 MG in SODIUM CHLORIDE 0.9% 500 ML IV SCH (11:42)
[2019-10-12] MEDS: allopurinoL 300 MG TABLET PO SCH (21:32)
[2019-10-12] MEDS: SIMVASTATIN 20 MG TABLET PO SCH (21:32)
[2019-10-12] MEDS: ASPIRIN EC 81 MG TABLET PO SCH (21:32)
[2019-10-12] MEDS: cefTRIAXone 500 MG in SYRINGE 1 EACH IV SCH (21:46)
[2019-10-13] MEDS: IPRATROPIUM 500 MCG/2.5 ML NEB RESP TX SCH ×4 (01:36→19:40)
[2019-10-13 05:36] LABS: Basophils % 0.1 % (0.0-0.8); Eosinophils % 0.4 % (0.00-10.9); Hematocrit 38.5 VOL% (35.7-47.0); Hemoglobin 11.7 GM/DL (12.0-16.0); Lymphocytes # 0.7 10*3/uL (1.4-4.0); Lymphocytes % 7.1 % (21.3-54.2); Mean Corpuscular HGB Conc 30.4 GM/DL (32-36); Mean Corpuscular Volume 93.9 FL (87-102); Mean Platelet Volume 10.7 FL (9.6-12.0); Monocytes % 8.4 % (1.7-12.7); Platelet Count 136 T/CUMM (130-400); Red Cell Distribution Width 16.8 % (9.3-17.3); White Blood Count 9.7 T/CUMM (4-12)
[2019-10-13 05:58] LABS: Albumin 2.1 G/DL (3.4-5.0); Calcium 8.1 MG/DL (8.5-10.1); Osmolality,Calculated 281.5 MOS/KG (273-304); Total Protein 5.3 G/DL (6.4-8.3)
[2019-10-13] MEDS: INSULIN LISPRO 100 UNIT/ML SUBCUT SCH ×4 (06:41→17:18)
[2019-10-13] MEDS: LEVOTHYROXINE 150 MCG TABLET PO SCH (06:42)
[2019-10-13] MEDS: PANTOPRAZOLE 40 MG TABLET PO SCH (09:31)
[2019-10-13] MEDS: amLODIPine 5 MG TABLET PO SCH (09:31)
[2019-10-13] MEDS: glipiZIDE 5 MG TABLET PO SCH ×2 (09:31→17:51)
[2019-10-13] MEDS: INSULIN GLARGINE 100 UNIT/ML SUBCUT SCH (09:31)
[2019-10-13] MEDS: SODIUM CHLORIDE 0.9% 1,000 ML IV SCH (09:31)
[2019-10-13] MEDS: DOCUSATE SODIUM 100 MG CAPSULE PO SCH ×2 (10:17→21:35)
[2019-10-13] MEDS: ETOPOSIDE 100 MG in SODIUM CHLORIDE 0.9% 500 ML IV SCH (12:57)
[2019-10-13] MEDS: ACETAMINOPHEN 325 MG TABLET PO PRN (14:23)
[2019-10-13] MEDS: cefTRIAXone 500 MG in SYRINGE 1 EACH IV SCH (21:34)
[2019-10-13] MEDS: ASPIRIN EC 81 MG TABLET PO SCH (21:34)
[2019-10-13] MEDS: SIMVASTATIN 20 MG TABLET PO SCH (21:34)
[2019-10-13] MEDS: allopurinoL 300 MG TABLET PO SCH (21:34)
[2019-10-13] MEDS: ONDANSETRON 4 MG/2 ML VIAL IV PRN (22:31)
[2019-10-14] MEDS: IPRATROPIUM 500 MCG/2.5 ML NEB RESP TX SCH ×5 (01:15→19:40)
[2019-10-14 04:47] LABS: Basophils % 0.1 % (0.0-0.8); Eosinophils % 0.5 % (0.00-10.9); Hematocrit 36.2 VOL% (35.7-47.0); Hemoglobin 11.1 GM/DL (12.0-16.0); Immature Granulocytes Absolute 0.07 #; Lymphocytes # 0.5 10*3/uL (1.4-4.0); Mean Corpuscular HGB Conc 30.7 GM/DL (32-36); Mean Corpuscular Volume 92.3 FL (87-102); Mean Platelet Volume 10.7 FL (9.6-12.0); Monocytes % 5.6 % (1.7-12.7); Neutrophils % 85.8 % (38.7-73.9); Platelet Count 125 T/CUMM (130-400); Red Blood Count 3.92 MC/CUMM (3.8-5.5); Red Cell Distribution Width 16.8 % (9.3-17.3); White Blood Count 7.3 T/CUMM (4-12)
[2019-10-14 05:10] LABS: Albumin 2.1 G/DL (3.4-5.0); Bilirubin,Total 0.6 MG/DL (0.2-1.0); Calcium 8.4 MG/DL (8.5-10.1); Osmolality,Calculated 281.4 MOS/KG (273-304); Total Protein 5.4 G/DL (6.4-8.3)
[2019-10-14] MEDS: INSULIN LISPRO 100 UNIT/ML SUBCUT SCH ×5 (05:12→21:07)
[2019-10-14] MEDS: LEVOTHYROXINE 150 MCG TABLET PO SCH (06:53)
[2019-10-14] MEDS: SODIUM CHLORIDE 0.9% 1,000 ML IV SCH ×2 (09:02→23:31)
[2019-10-14] MEDS: DOCUSATE SODIUM 100 MG CAPSULE PO SCH ×2 (09:02→21:13)
[2019-10-14] MEDS: glipiZIDE 5 MG TABLET PO SCH ×2 (09:06→17:48)
[2019-10-14] MEDS: INSULIN GLARGINE 100 UNIT/ML SUBCUT SCH ×2 (09:07→09:11)
[2019-10-14] MEDS: amLODIPine 5 MG TABLET PO SCH (09:07)
[2019-10-14] MEDS: CLOTRIMAZOLE 10 MG TROCHE PO SCH ×4 (09:07→21:13)
[2019-10-14] MEDS: PANTOPRAZOLE 40 MG TABLET PO SCH (09:07)
[2019-10-14] MEDS ORDERED: CARBOplatin 300 MG in SODIUM CHLORIDE 0.9% 250 ML IV ONE (09:30)
[2019-10-14] MEDS ORDERED: FUROSEMIDE 40 MG/4 ML VIAL IV ONE (19:47)
[2019-10-14] MEDS: allopurinoL 300 MG TABLET PO SCH (21:13)
[2019-10-14] MEDS: SIMVASTATIN 20 MG TABLET PO SCH (21:13)
[2019-10-14] MEDS: ASPIRIN EC 81 MG TABLET PO SCH (21:13)
[2019-10-14] MEDS: cefTRIAXone 500 MG in SYRINGE 1 EACH IV SCH (21:14)
[2019-10-14] MEDS: ONDANSETRON 4 MG/2 ML VIAL IV PRN (21:24)
[2019-10-15] MEDS: IPRATROPIUM 500 MCG/2.5 ML NEB RESP TX SCH ×4 (00:35→19:10)
[2019-10-15 05:02] LABS: Basophils % 0.1 % (0.0-0.8); Eosinophils % 0.6 % (0.00-10.9); Hematocrit 37.1 VOL% (35.7-47.0); Hemoglobin 11.3 GM/DL (12.0-16.0); Immature Granulocytes % 0.6 %; Immature Granulocytes Absolute 0.04 #; Lymphocytes # 0.7 10*3/uL (1.4-4.0); Lymphocytes % 9.5 % (21.3-54.2); Mean Corpuscular HGB Conc 30.5 GM/DL (32-36); Mean Corpuscular Volume 93.2 FL (87-102); Monocytes % 3.7 % (1.7-12.7); Neutrophils % 85.5 % (38.7-73.9); Platelet Count 131 T/CUMM (130-400); Red Blood Count 3.98 MC/CUMM (3.8-5.5); Red Cell Distribution Width 16.4 % (9.3-17.3)
[2019-10-15 05:30] LABS: Albumin 2.3 G/DL (3.4-5.0); Bilirubin,Total 0.4 MG/DL (0.2-1.0); Calcium 8.4 MG/DL (8.5-10.1); Osmolality,Calculated 277.7 MOS/KG (273-304); Total Protein 5.6 G/DL (6.4-8.3)
[2019-10-15] MEDS: LEVOTHYROXINE 150 MCG TABLET PO SCH (06:12)
[2019-10-15] MEDS: INSULIN LISPRO 100 UNIT/ML SUBCUT SCH ×4 (08:15→20:13)
[2019-10-15] MEDS: glipiZIDE 5 MG TABLET PO SCH ×2 (08:19→17:10)
[2019-10-15] MEDS: PANTOPRAZOLE 40 MG TABLET PO SCH (08:19)
[2019-10-15] MEDS: DOCUSATE SODIUM 100 MG CAPSULE PO SCH ×2 (08:19→20:43)
[2019-10-15] MEDS: amLODIPine 5 MG TABLET PO SCH (08:19)
[2019-10-15] MEDS: MAGNESIUM HYDROXIDE SUSP 30 ML UDCUP PO PRN (08:19)
[2019-10-15] MEDS: INSULIN GLARGINE 100 UNIT/ML SUBCUT SCH (08:19)
[2019-10-15] MEDS: CLOTRIMAZOLE 10 MG TROCHE PO SCH ×4 (08:20→20:43)
[2019-10-15] MEDS: ONDANSETRON 4 MG/2 ML VIAL IV PRN ×2 (08:59→17:10)
[2019-10-15] MEDS: SODIUM CHLORIDE 0.9% 1,000 ML IV SCH (13:18)
[2019-10-15] MEDS: ACETAMINOPHEN 325 MG TABLET PO PRN (16:05)
[2019-10-15] MEDS ORDERED: PROMETHAZINE 25 MG/1 ML VIAL IM ONE (18:04)
[2019-10-15] MEDS: allopurinoL 300 MG TABLET PO SCH (20:43)
[2019-10-15] MEDS: SIMVASTATIN 20 MG TABLET PO SCH (20:43)
[2019-10-15] MEDS: ASPIRIN EC 81 MG TABLET PO SCH (20:44)
[2019-10-16] MEDS: IPRATROPIUM 500 MCG/2.5 ML NEB RESP TX SCH ×4 (00:20→19:30)
[2019-10-16 05:21] LABS: Basophils % 0.2 % (0.0-0.8); Eosinophils % 0.7 % (0.00-10.9); Hematocrit 35.9 VOL% (35.7-47.0); Hemoglobin 10.9 GM/DL (12.0-16.0); Immature Granulocytes % 0.4 %; Immature Granulocytes Absolute 0.02 #; Lymphocytes # 0.7 10*3/uL (1.4-4.0); Lymphocytes % 12.4 % (21.3-54.2); Mean Corpuscular HGB Conc 30.4 GM/DL (32-36); Mean Corpuscular Volume 94.5 FL (87-102); Mean Platelet Volume 11.9 FL (9.6-12.0); Monocytes % 2.2 % (1.7-12.7); Neutrophils % 84.1 % (38.7-73.9); Platelet Count 109 T/CUMM (130-400); Red Cell Distribution Width 16.1 % (9.3-17.3); White Blood Count 5.5 T/CUMM (4-12)
[2019-10-16] MEDS: SODIUM CHLORIDE 0.9% 1,000 ML IV SCH (05:25)
[2019-10-16] MEDS: LEVOTHYROXINE 150 MCG TABLET PO SCH (05:33)
[2019-10-16 05:47] LABS: Albumin 2.4 G/DL (3.4-5.0); Bilirubin,Total 0.5 MG/DL (0.2-1.0); Calcium 8.3 MG/DL (8.5-10.1); Osmolality,Calculated 279.3 MOS/KG (273-304); Total Protein 5.4 G/DL (6.4-8.3); Uric Acid 3.8 MG/DL (2.6-6.0)
[2019-10-16] MEDS: INSULIN LISPRO 100 UNIT/ML SUBCUT SCH ×4 (08:48→22:00)
[2019-10-16] MEDS: INSULIN GLARGINE 100 UNIT/ML SUBCUT SCH (08:50)
[2019-10-16] MEDS: CLOTRIMAZOLE 10 MG TROCHE PO SCH ×4 (08:50→20:55)
[2019-10-16] MEDS: glipiZIDE 5 MG TABLET PO SCH ×2 (08:50→18:32)
[2019-10-16] MEDS: PANTOPRAZOLE 40 MG TABLET PO SCH (08:50)
[2019-10-16] MEDS: DOCUSATE SODIUM 100 MG CAPSULE PO SCH ×2 (08:50→20:55)
[2019-10-16] MEDS: amLODIPine 5 MG TABLET PO SCH (08:50)
[2019-10-16] MEDS: ASPIRIN EC 81 MG TABLET PO SCH (20:55)
[2019-10-16] MEDS: SIMVASTATIN 20 MG TABLET PO SCH (20:55)
[2019-10-16] MEDS: allopurinoL 300 MG TABLET PO SCH (20:56)
[2019-10-16] MEDS: ACETAMINOPHEN 325 MG TABLET PO PRN (22:46)
[2019-10-17] MEDS: IPRATROPIUM 500 MCG/2.5 ML NEB RESP TX SCH ×4 (01:06→19:04)
[2019-10-17] MEDS: ONDANSETRON 4 MG/2 ML VIAL IV PRN (05:20)
[2019-10-17] MEDS: LEVOTHYROXINE 150 MCG TABLET PO SCH (05:47)
[2019-10-17 06:12] LABS: Basophils % 0.4 % (0.0-0.8); Eosinophils % 0.8 % (0.00-10.9); Hematocrit 34.6 VOL% (35.7-47.0); Hemoglobin 10.5 GM/DL (12.0-16.0); Immature Granulocytes % 1.1 %; Immature Granulocytes Absolute 0.06 #; Lymphocytes # 0.7 10*3/uL (1.4-4.0); Lymphocytes % 13.1 % (21.3-54.2); Mean Corpuscular HGB Conc 30.3 GM/DL (32-36); Mean Corpuscular Volume 94.3 FL (87-102); Mean Platelet Volume 10.9 FL (9.6-12.0); Monocytes % 2.9 % (1.7-12.7); Neutrophils % 81.7 % (38.7-73.9); Platelet Count 116 T/CUMM (130-400); Red Blood Count 3.67 MC/CUMM (3.8-5.5); Red Cell Distribution Width 16.1 % (9.3-17.3); White Blood Count 5.3 T/CUMM (4-12)
[2019-10-17 07:00] LABS: Albumin 2.4 G/DL (3.4-5.0); Bilirubin,Total 0.7 MG/DL (0.2-1.0); Calcium 8.5 MG/DL (8.5-10.1); Osmolality,Calculated 273.8 MOS/KG (273-304); Total Protein 5.6 G/DL (6.4-8.3)
[2019-10-17] MEDS: INSULIN LISPRO 100 UNIT/ML SUBCUT SCH ×4 (07:59→20:29)
[2019-10-17] MEDS: FLUCONAZOLE 100 MG TABLET PO SCH (08:50)
[2019-10-17] MEDS: DOCUSATE SODIUM 100 MG CAPSULE PO SCH ×2 (08:50→20:26)
[2019-10-17] MEDS: glipiZIDE 5 MG TABLET PO SCH ×2 (08:51→16:09)
[2019-10-17] MEDS: PANTOPRAZOLE 40 MG TABLET PO SCH (08:51)
[2019-10-17] MEDS: amLODIPine 10 MG TABLET PO SCH (08:51)
[2019-10-17] MEDS: CLOTRIMAZOLE 10 MG TROCHE PO SCH ×4 (08:51→20:26)
[2019-10-17] MEDS: INSULIN GLARGINE 100 UNIT/ML SUBCUT SCH (08:51)
[2019-10-17] MEDS: allopurinoL 300 MG TABLET PO SCH (20:26)
[2019-10-17] MEDS: ASPIRIN EC 81 MG TABLET PO SCH (20:27)
[2019-10-17] MEDS: SIMVASTATIN 20 MG TABLET PO SCH (20:27)
[2019-10-18] MEDS: IPRATROPIUM 500 MCG/2.5 ML NEB RESP TX SCH ×4 (01:25→19:32)
[2019-10-18] MEDS: SODIUM CHLORIDE 0.9% 1,000 ML IV SCH (05:10)
[2019-10-18] MEDS: LEVOTHYROXINE 150 MCG TABLET PO SCH (05:17)
[2019-10-18] MEDS: ONDANSETRON 4 MG/2 ML VIAL IV PRN (08:20)
[2019-10-18] MEDS: INSULIN GLARGINE 100 UNIT/ML SUBCUT SCH (08:24)
[2019-10-18] MEDS: MAGNESIUM HYDROXIDE SUSP 30 ML UDCUP PO PRN (08:25)
[2019-10-18] MEDS: FLUCONAZOLE 100 MG TABLET PO SCH (08:25)
[2019-10-18] MEDS: amLODIPine 10 MG TABLET PO SCH (08:25)
[2019-10-18] MEDS: PANTOPRAZOLE 40 MG TABLET PO SCH (08:25)
[2019-10-18] MEDS: INSULIN LISPRO 100 UNIT/ML SUBCUT SCH ×4 (08:25→23:00)
[2019-10-18] MEDS: DOCUSATE SODIUM 100 MG CAPSULE PO SCH ×2 (08:25→20:20)
[2019-10-18] MEDS: glipiZIDE 5 MG TABLET PO SCH ×2 (08:25→17:58)
[2019-10-18] MEDS: CLOTRIMAZOLE 10 MG TROCHE PO SCH ×4 (08:25→20:20)
[2019-10-18 09:39] LABS: Basophils % 0.7 % (0.0-0.8); Hematocrit 33.4 VOL% (35.7-47.0); Hemoglobin 10.4 GM/DL (12.0-16.0); Immature Granulocytes % 1.7 %; Immature Granulocytes Absolute 0.07 #; Lymphocytes # 0.5 10*3/uL (1.4-4.0); Lymphocytes % 11.2 % (21.3-54.2); Mean Corpuscular HGB Conc 31.1 GM/DL (32-36); Mean Corpuscular Volume 92.8 FL (87-102); Monocytes % 2.2 % (1.7-12.7); Neutrophils % 83.2 % (38.7-73.9); Platelet Count 108 T/CUMM (130-400); Red Cell Distribution Width 15.9 % (9.3-17.3); White Blood Count 4.1 T/CUMM (4-12)
[2019-10-18] MEDS: ASPIRIN EC 81 MG TABLET PO SCH (20:20)
[2019-10-18] MEDS: SIMVASTATIN 20 MG TABLET PO SCH (20:20)
[2019-10-18] MEDS: allopurinoL 300 MG TABLET PO SCH (20:20)
[2019-10-19] MEDS: ACETAMINOPHEN 325 MG TABLET PO PRN ×2 (00:42→20:55)
[2019-10-19] MEDS: IPRATROPIUM 500 MCG/2.5 ML NEB RESP TX SCH ×4 (01:40→19:57)
[2019-10-19] MEDS: ONDANSETRON 4 MG/2 ML VIAL IV PRN (03:00)
[2019-10-19 05:06] LABS: Basophils % 0.5 % (0.0-0.8); Eosinophils # 0.1 10*3/uL (0.0-0.87); Eosinophils % 1.3 % (0.00-10.9); Hematocrit 33.5 VOL% (35.7-47.0); Hemoglobin 10.2 GM/DL (12.0-16.0); Immature Granulocytes % 2.1 %; Immature Granulocytes Absolute 0.08 #; Lymphocytes # 0.5 10*3/uL (1.4-4.0); Lymphocytes % 12.8 % (21.3-54.2); Mean Corpuscular HGB Conc 30.4 GM/DL (32-36); Mean Corpuscular Volume 94.1 FL (87-102); Mean Platelet Volume 10.6 FL (9.6-12.0); Monocytes % 2.7 % (1.7-12.7); Neutrophils % 80.6 % (38.7-73.9); Platelet Count 104 T/CUMM (130-400); Red Blood Count 3.56 MC/CUMM (3.8-5.5); White Blood Count 3.8 T/CUMM (4-12)
[2019-10-19 05:34] LABS: Albumin 2.6 G/DL (3.4-5.0); Bilirubin,Total 0.9 MG/DL (0.2-1.0); Calcium 8.8 MG/DL (8.5-10.1); Total Protein 5.8 G/DL (6.4-8.3)
[2019-10-19] MEDS: LEVOTHYROXINE 150 MCG TABLET PO SCH (05:49)
[2019-10-19] MEDS: SODIUM CHLORIDE 0.9% 1,000 ML IV SCH ×2 (07:10→14:00)
[2019-10-19] MEDS: INSULIN LISPRO 100 UNIT/ML SUBCUT SCH ×3 (09:05→16:29)
[2019-10-19] MEDS: DOCUSATE SODIUM 100 MG CAPSULE PO SCH ×2 (09:18→20:55)
[2019-10-19] MEDS: FLUCONAZOLE 100 MG TABLET PO SCH (09:18)
[2019-10-19] MEDS: glipiZIDE 5 MG TABLET PO SCH ×2 (09:18→18:08)
[2019-10-19] MEDS: PANTOPRAZOLE 40 MG TABLET PO SCH (09:18)
[2019-10-19] MEDS: amLODIPine 10 MG TABLET PO SCH (09:18)
[2019-10-19] MEDS: CLOTRIMAZOLE 10 MG TROCHE PO SCH ×4 (09:50→20:55)
[2019-10-19] MEDS: INSULIN GLARGINE 100 UNIT/ML SUBCUT SCH (09:50)
[2019-10-19] MEDS: NYSTATIN POWDER 15 GM BOTTLE TOP SCH (18:08)
[2019-10-19] MEDS: allopurinoL 300 MG TABLET PO SCH (20:55)
[2019-10-19] MEDS: ASPIRIN EC 81 MG TABLET PO SCH (20:55)
[2019-10-19] MEDS: SIMVASTATIN 20 MG TABLET PO SCH (20:55)
[2019-10-20] MEDS: ONDANSETRON 4 MG/2 ML VIAL IV PRN (00:40)
[2019-10-20] MEDS: IPRATROPIUM 500 MCG/2.5 ML NEB RESP TX SCH ×4 (00:44→19:33)
[2019-10-20] MEDS: INSULIN LISPRO 100 UNIT/ML SUBCUT SCH ×5 (01:10→22:01)
[2019-10-20] MEDS: NYSTATIN POWDER 15 GM BOTTLE TOP SCH ×4 (01:10→22:02)
[2019-10-20 05:21] LABS: Basophils % 0.3 % (0.0-0.8); Hematocrit 32.1 VOL% (35.7-47.0); Hemoglobin 9.6 GM/DL (12.0-16.0); Immature Granulocytes % 1.3 %; Immature Granulocytes Absolute 0.04 #; Lymphocytes # 0.5 10*3/uL (1.4-4.0); Lymphocytes % 16.2 % (21.3-54.2); Mean Corpuscular HGB Conc 29.9 GM/DL (32-36); Mean Corpuscular Volume 95.5 FL (87-102); Mean Platelet Volume 10.6 FL (9.6-12.0); Monocytes % 5.8 % (1.7-12.7); Neutrophils % 75.4 % (38.7-73.9); Platelet Count 99 T/CUMM (130-400); Red Blood Count 3.36 MC/CUMM (3.8-5.5); Red Cell Distribution Width 15.9 % (9.3-17.3); White Blood Count 3.1 T/CUMM (4-12)
[2019-10-20 05:34] LABS: Alanine Aminotransferase 15 U/L (13-56); Alkaline Phosphatase 55 U/L (45-117); Aspartate Amino Transferase 15 U/L (0-37); Bilirubin,Total < 0.39 MG/DL (0.2-1.0); Calcium 8.4 MG/DL (8.5-10.1)
[2019-10-20 05:35] LABS: Albumin 2.5 G/DL (3.4-5.0); Blood Urea Nitrogen 9 MG/DL (7-18); Estimated Glom Filtration Rate 82 ML/MIN; Glucose 87 MG/DL (74-106); Osmolality,Calculated 270.8 MOS/KG (273-304); Total Protein 5.5 G/DL (6.4-8.3)
[2019-10-20] MEDS: LEVOTHYROXINE 150 MCG TABLET PO SCH (06:05)
[2019-10-20 06:34] LABS: Band Neutrophils 2 % (0-10); Eosinophils 1 % (0-10); Lymphocytes 19 % (20-55); Segmented Neutrophils 74 % (50-85); Total Cells Counted 100
[2019-10-20 06:35] LABS: Anisocytosis 1+; Platelet Estimate Adequate
[2019-10-20] MEDS: BISACODYL 10 MG SUPP RECTAL PRN (06:38)
[2019-10-20] MEDS: amLODIPine 10 MG TABLET PO SCH (09:19)
[2019-10-20] MEDS: PANTOPRAZOLE 40 MG TABLET PO SCH (09:19)
[2019-10-20] MEDS: DOCUSATE SODIUM 100 MG CAPSULE PO SCH ×2 (09:19→21:08)
[2019-10-20] MEDS: SODIUM CHLORIDE 0.9% 1,000 ML IV SCH (09:20)
[2019-10-20] MEDS: glipiZIDE 5 MG TABLET PO SCH ×2 (09:20→17:07)
[2019-10-20] MEDS: CLOTRIMAZOLE 10 MG TROCHE PO SCH ×4 (09:20→21:08)
[2019-10-20] MEDS: FLUCONAZOLE 100 MG TABLET PO SCH (09:20)
[2019-10-20] MEDS: MAGNESIUM HYDROXIDE SUSP 30 ML UDCUP PO PRN (09:20)
[2019-10-20] MEDS: INSULIN GLARGINE 100 UNIT/ML SUBCUT SCH (13:19)
[2019-10-20] MEDS ORDERED: PROMETHAZINE INJ 25 MG in SODIUM CHLORIDE 0.9% 50 ML IV PRN (18:38)
[2019-10-20] MEDS ORDERED: MYLANTA/LIDO VISC 2:1 300 ML BOTTLE SWISH/SWAL PRN (18:38)
[2019-10-20] MEDS ORDERED: ALUMINUM/MAGNES/SIMETH MAX STR 30 ML UDCUP PO PRN (18:38)
[2019-10-20] MEDS ORDERED: MYLANTA/LIDO VISC 2:1 300 ML BOTTLE SWISH/SPIT PRN (18:38)
[2019-10-20] MEDS ORDERED: guaiFENesin 200 MG/10 ML UDCUP PO PRN (18:38)
[2019-10-20] MEDS ORDERED: LOPERAMIDE 2 MG CAPSULE PO PRN ×2 (18:38)
[2019-10-20] MEDS ORDERED: MAGNESIUM HYDROXIDE SUSP 30 ML UDCUP PO PRN (18:38)
[2019-10-20] MEDS: SIMVASTATIN 20 MG TABLET PO SCH (21:08)
[2019-10-20] MEDS: ASPIRIN EC 81 MG TABLET PO SCH (21:08)
[2019-10-20] MEDS: TEMAZEPAM 7.5 MG CAPSULE PO PRN (21:08)
[2019-10-20] MEDS: traMADol 50 MG TABLET PO PRN (21:08)
[2019-10-20] MEDS: allopurinoL 300 MG TABLET PO SCH (21:08)
[2019-10-21] MEDS: IPRATROPIUM 500 MCG/2.5 ML NEB RESP TX SCH ×4 (00:44→19:32)
[2019-10-21] MEDS: SODIUM CHLORIDE 0.9% 1,000 ML IV SCH (04:19)
[2019-10-21] MEDS: diphenhydrAMINE CAP 25 MG CAPSULE PO PRN (04:19)
[2019-10-21 05:44] LABS: Basophils % 0.4 % (0.0-0.8); Eosinophils % 0.8 % (0.00-10.9); Hematocrit 32.8 VOL% (35.7-47.0); Immature Granulocytes % 0.8 %; Immature Granulocytes Absolute 0.02 #; Lymphocytes # 0.6 10*3/uL (1.4-4.0); Lymphocytes % 23.4 % (21.3-54.2); Mean Corpuscular HGB Conc 30.5 GM/DL (32-36); Mean Corpuscular Volume 94.3 FL (87-102); Mean Platelet Volume 10.2 FL (9.6-12.0); Monocytes % 6.6 % (1.7-12.7); Platelet Count 101 T/CUMM (130-400); Red Blood Count 3.48 MC/CUMM (3.8-5.5); Red Cell Distribution Width 15.6 % (9.3-17.3); White Blood Count 2.4 T/CUMM (4-12)
[2019-10-21 06:03] LABS: Alanine Aminotransferase 14 U/L (13-56); Albumin 2.6 G/DL (3.4-5.0); Alkaline Phosphatase 66 U/L (45-117); Aspartate Amino Transferase 16 U/L (0-37); Bilirubin,Total < 0.39 MG/DL (0.2-1.0); Blood Urea Nitrogen 8 MG/DL (7-18); Calcium 8.6 MG/DL (8.5-10.1); Estimated Glom Filtration Rate 81 ML/MIN; Glucose 86 MG/DL (74-106); Osmolality,Calculated 264.2 MOS/KG (273-304); Total Protein 5.8 G/DL (6.4-8.3)
[2019-10-21 06:08] LABS: Band Neutrophils 2 % (0-10); Eosinophils 1 % (0-10); Hypochromasia 1+; Lymphocytes 23 % (20-55); Segmented Neutrophils 68 % (50-85); Total Cells Counted 100
[2019-10-21 06:09] LABS: Microcytosis Slight; Platelet Estimate Decreased
[2019-10-21] MEDS: CLOTRIMAZOLE 10 MG TROCHE PO SCH ×4 (08:45→21:11)
[2019-10-21] MEDS: FLUCONAZOLE 100 MG TABLET PO SCH (08:45)
[2019-10-21] MEDS: INSULIN GLARGINE 100 UNIT/ML SUBCUT SCH (08:45)
[2019-10-21] MEDS: PANTOPRAZOLE 40 MG TABLET PO SCH (08:45)
[2019-10-21] MEDS: DOCUSATE SODIUM 100 MG CAPSULE PO SCH ×2 (08:45→21:12)
[2019-10-21] MEDS: amLODIPine 10 MG TABLET PO SCH (08:45)
[2019-10-21] MEDS: glipiZIDE 5 MG TABLET PO SCH ×2 (08:45→17:40)
[2019-10-21] MEDS: LEVOTHYROXINE 150 MCG TABLET PO SCH (08:45)
[2019-10-21] MEDS: INSULIN LISPRO 100 UNIT/ML SUBCUT SCH ×4 (08:46→22:06)
[2019-10-21] MEDS: NYSTATIN POWDER 15 GM BOTTLE TOP SCH ×3 (08:46→21:11)
[2019-10-21] MEDS: MENTHOL/ZINC OXIDE OINT 71 GM JAR TOP SCH ×2 (17:40→21:11)
[2019-10-21] MEDS: SIMVASTATIN 20 MG TABLET PO SCH (21:11)
[2019-10-21] MEDS: allopurinoL 300 MG TABLET PO SCH (21:11)
[2019-10-21] MEDS: ONDANSETRON 4 MG/2 ML VIAL IV PRN (21:12)
[2019-10-21] MEDS: ASPIRIN EC 81 MG TABLET PO SCH (21:12)
[2019-10-21] MEDS ORDERED: FUROSEMIDE 40 MG/4 ML VIAL IV ONE (23:19)
[2019-10-22] MEDS: IPRATROPIUM 500 MCG/2.5 ML NEB RESP TX SCH ×4 (00:14→19:58)
[2019-10-22] MEDS: LEVOTHYROXINE 150 MCG TABLET PO SCH (05:22)
[2019-10-22 05:33] LABS: Eosinophils % 0.5 % (0.00-10.9); Hematocrit 32.2 VOL% (35.7-47.0); Hemoglobin 9.7 GM/DL (12.0-16.0); Immature Granulocytes % 0.5 %; Immature Granulocytes Absolute 0.01 #; Lymphocytes # 0.5 10*3/uL (1.4-4.0); Mean Corpuscular HGB Conc 30.1 GM/DL (32-36); Mean Corpuscular Volume 95.3 FL (87-102); Mean Platelet Volume 9.6 FL (9.6-12.0); Monocytes % 10.2 % (1.7-12.7); Neutrophils % 60.8 % (38.7-73.9); Platelet Count 117 T/CUMM (130-400); Red Blood Count 3.38 MC/CUMM (3.8-5.5); Red Cell Distribution Width 15.5 % (9.3-17.3); White Blood Count 1.9 T/CUMM (4-12)
[2019-10-22 05:58] LABS: Albumin 2.4 G/DL (3.4-5.0); Band Neutrophils 1 % (0-10); Calcium 7.8 MG/DL (8.5-10.1); Eosinophils 1 % (0-10); Hypochromasia 1+; Lymphocytes 27 % (20-55); Osmolality,Calculated 274.4 MOS/KG (273-304); Ovalocytes Slight; Platelet Estimate Decreased; Segmented Neutrophils 64 % (50-85); Total Cells Counted 100; Total Protein 5.3 G/DL (6.4-8.3)
[2019-10-22 05:59] LABS: Microcytosis Slight
[2019-10-22] MEDS: INSULIN LISPRO 100 UNIT/ML SUBCUT SCH ×4 (07:50→21:42)
[2019-10-22] MEDS: INSULIN GLARGINE 100 UNIT/ML SUBCUT SCH (08:41)
[2019-10-22] MEDS: glipiZIDE 5 MG TABLET PO SCH ×2 (08:41→16:10)
[2019-10-22] MEDS: FILGRASTIM-SNDZ 300 MCG/0.5 ML SYRINGE SUBCUT SCH (08:42)
[2019-10-22] MEDS: FUROSEMIDE 40 MG/4 ML VIAL IV SCH (08:42)
[2019-10-22] MEDS: amLODIPine 10 MG TABLET PO SCH (08:43)
[2019-10-22] MEDS: SODIUM CHLORIDE 0.9% 1,000 ML IV SCH (08:43)
[2019-10-22] MEDS: PANTOPRAZOLE 40 MG TABLET PO SCH (08:43)
[2019-10-22] MEDS: DOCUSATE SODIUM 100 MG CAPSULE PO SCH ×2 (08:43→21:41)
[2019-10-22] MEDS: CLOTRIMAZOLE 10 MG TROCHE PO SCH ×4 (08:43→21:41)
[2019-10-22] MEDS: MENTHOL/ZINC OXIDE OINT 71 GM JAR TOP SCH ×2 (08:44→21:41)
[2019-10-22] MEDS: NYSTATIN POWDER 15 GM BOTTLE TOP SCH ×3 (08:44→21:41)
[2019-10-22] MEDS: ONDANSETRON 4 MG/2 ML VIAL IV PRN (10:12)
[2019-10-22] MEDS: SIMVASTATIN 20 MG TABLET PO SCH (21:41)
[2019-10-22] MEDS: allopurinoL 300 MG TABLET PO SCH (21:41)
[2019-10-22] MEDS: ASPIRIN EC 81 MG TABLET PO SCH (21:41)
[2019-10-23] MEDS: IPRATROPIUM 500 MCG/2.5 ML NEB RESP TX SCH ×4 (00:23→20:25)
[2019-10-23] MEDS: ONDANSETRON 4 MG/2 ML VIAL IV PRN (00:34)
[2019-10-23] MEDS: SODIUM CHLORIDE 0.9% 1,000 ML IV SCH (03:58)
[2019-10-23] MEDS: LEVOTHYROXINE 150 MCG TABLET PO SCH (05:47)
[2019-10-23 06:12] LABS: Basophils % 0.2 % (0.0-0.8); Eosinophils % 0.2 % (0.00-10.9); Hematocrit 33.9 VOL% (35.7-47.0); Hemoglobin 10.4 GM/DL (12.0-16.0); Immature Granulocytes Absolute 0.04 #; Lymphocytes # 0.8 10*3/uL (1.4-4.0); Lymphocytes % 19.7 % (21.3-54.2); Mean Corpuscular HGB Conc 30.7 GM/DL (32-36); Mean Corpuscular Volume 93.9 FL (87-102); Mean Platelet Volume 10.3 FL (9.6-12.0); Monocytes % 12.8 % (1.7-12.7); Neutrophils % 66.1 % (38.7-73.9); Platelet Count 136 T/CUMM (130-400); Red Blood Count 3.61 MC/CUMM (3.8-5.5); Red Cell Distribution Width 15.5 % (9.3-17.3); White Blood Count 4.2 T/CUMM (4-12)
[2019-10-23 06:44] LABS: Albumin 2.6 G/DL (3.4-5.0); Bilirubin,Total 0.4 MG/DL (0.2-1.0); Calcium 8.5 MG/DL (8.5-10.1); Osmolality,Calculated 278.4 MOS/KG (273-304); Total Protein 5.9 G/DL (6.4-8.3)
[2019-10-23 06:50] LABS: Band Neutrophils 6 % (0-10); Lymphocytes 22 % (20-55); Segmented Neutrophils 59 % (50-85); Total Cells Counted 100
[2019-10-23 06:51] LABS: Anisocytosis 1+; Platelet Estimate Normal
[2019-10-23] MEDS: INSULIN LISPRO 100 UNIT/ML SUBCUT SCH ×4 (07:56→20:37)
[2019-10-23] MEDS: INSULIN GLARGINE 100 UNIT/ML SUBCUT SCH (08:00)
[2019-10-23] MEDS: DOCUSATE SODIUM 100 MG CAPSULE PO SCH ×2 (09:49→20:36)
[2019-10-23] MEDS: amLODIPine 10 MG TABLET PO SCH (09:49)
[2019-10-23] MEDS: FILGRASTIM-SNDZ 300 MCG/0.5 ML SYRINGE SUBCUT SCH (09:50)
[2019-10-23] MEDS: CLOTRIMAZOLE 10 MG TROCHE PO SCH ×4 (09:50→20:36)
[2019-10-23] MEDS: MENTHOL/ZINC OXIDE OINT 71 GM JAR TOP SCH ×2 (09:50→20:38)
[2019-10-23] MEDS: PANTOPRAZOLE 40 MG TABLET PO SCH (09:50)
[2019-10-23] MEDS: FUROSEMIDE 40 MG/4 ML VIAL IV SCH (09:50)
[2019-10-23] MEDS: glipiZIDE 5 MG TABLET PO SCH ×2 (09:50→17:15)
[2019-10-23] MEDS: NYSTATIN POWDER 15 GM BOTTLE TOP SCH ×3 (09:51→20:40)
[2019-10-23] MEDS: ACETAMINOPHEN 325 MG TABLET PO PRN (15:44)
[2019-10-23] MEDS: traMADol 50 MG TABLET PO PRN (18:01)
[2019-10-23] MEDS: ASPIRIN EC 81 MG TABLET PO SCH (20:36)
[2019-10-23] MEDS: SIMVASTATIN 20 MG TABLET PO SCH (20:36)
[2019-10-23] MEDS: allopurinoL 300 MG TABLET PO SCH (20:36)
[2019-10-24] MEDS: SODIUM CHLORIDE 0.9% 1,000 ML IV SCH (01:01)
[2019-10-24] MEDS: IPRATROPIUM 500 MCG/2.5 ML NEB RESP TX SCH ×4 (01:56→20:17)
[2019-10-24] MEDS: ONDANSETRON 4 MG/2 ML VIAL IV PRN ×2 (05:30→21:13)
[2019-10-24 05:37] LABS: Basophils % 0.7 % (0.0-0.8); Eosinophils % 0.2 % (0.00-10.9); Hematocrit 33.2 VOL% (35.7-47.0); Immature Granulocytes Absolute 0.53 #; Lymphocytes # 0.8 10*3/uL (1.4-4.0); Lymphocytes % 20.1 % (21.3-54.2); Mean Corpuscular HGB Conc 30.1 GM/DL (32-36); Mean Corpuscular Volume 94.3 FL (87-102); Mean Platelet Volume 9.9 FL (9.6-12.0); Monocytes % 24.1 % (1.7-12.7); NRBC # 0.02 10*3/uL; Neutrophils % 41.9 % (38.7-73.9); Platelet Count 182 T/CUMM (130-400); Red Blood Count 3.52 MC/CUMM (3.8-5.5); Red Cell Distribution Width 16.2 % (9.3-17.3); White Blood Count 4.1 T/CUMM (4-12)
[2019-10-24] MEDS: LEVOTHYROXINE 150 MCG TABLET PO SCH (06:00)
[2019-10-24 06:02] LABS: Band Neutrophils 3 % (0-10); Hypochromasia 1+; Lymphocytes 22 % (20-55); Ovalocytes Slight; Platelet Estimate Adequate; Segmented Neutrophils 58 % (50-85); Total Cells Counted 100
[2019-10-24 06:03] LABS: Microcytosis Slight
[2019-10-24 06:12] LABS: Albumin 2.7 G/DL (3.4-5.0); Bilirubin,Total 0.7 MG/DL (0.2-1.0); Calcium 8.7 MG/DL (8.5-10.1); Osmolality,Calculated 275.4 MOS/KG (273-304); Total Protein 5.9 G/DL (6.4-8.3)
[2019-10-24] MEDS ORDERED: POTASSIUM CHLORIDE 20 MEQ TABLET PO PRN (07:48)
[2019-10-24] MEDS: INSULIN LISPRO 100 UNIT/ML SUBCUT SCH ×3 (07:55→16:56)
[2019-10-24] MEDS: INSULIN GLARGINE 100 UNIT/ML SUBCUT SCH (08:00)
[2019-10-24] MEDS: PANTOPRAZOLE 40 MG TABLET PO SCH (09:28)
[2019-10-24] MEDS: FUROSEMIDE 40 MG/4 ML VIAL IV SCH (09:28)
[2019-10-24] MEDS: FILGRASTIM-SNDZ 300 MCG/0.5 ML SYRINGE SUBCUT SCH (09:28)
[2019-10-24] MEDS: glipiZIDE 5 MG TABLET PO SCH ×2 (09:34→16:57)
[2019-10-24] MEDS: DOCUSATE SODIUM 100 MG CAPSULE PO SCH ×2 (09:38→21:12)
[2019-10-24] MEDS: amLODIPine 10 MG TABLET PO SCH (09:38)
[2019-10-24] MEDS: MENTHOL/ZINC OXIDE OINT 71 GM JAR TOP SCH (09:38)
[2019-10-24] MEDS: CLOTRIMAZOLE 10 MG TROCHE PO SCH ×3 (09:38→16:56)
[2019-10-24] MEDS: NYSTATIN POWDER 15 GM BOTTLE TOP SCH ×3 (09:39→21:12)
[2019-10-24] MEDS: TEMAZEPAM 7.5 MG CAPSULE PO PRN (21:12)
[2019-10-24] MEDS: ASPIRIN EC 81 MG TABLET PO SCH (21:12)
[2019-10-24] MEDS: allopurinoL 300 MG TABLET PO SCH (21:12)
[2019-10-24] MEDS: SIMVASTATIN 20 MG TABLET PO SCH (21:12)
[2019-10-25] MEDS: IPRATROPIUM 500 MCG/2.5 ML NEB RESP TX SCH ×4 (00:44→20:15)
[2019-10-25] MEDS: SODIUM CHLORIDE 0.9% 1,000 ML IV SCH ×2 (02:23→22:35)
[2019-10-25] MEDS: MENTHOL/ZINC OXIDE OINT 71 GM JAR TOP SCH ×3 (02:23→20:57)
[2019-10-25] MEDS: CLOTRIMAZOLE 10 MG TROCHE PO SCH ×5 (02:24→20:54)
[2019-10-25] MEDS: INSULIN LISPRO 100 UNIT/ML SUBCUT SCH ×5 (02:24→22:35)
[2019-10-25 06:21] LABS: Basophils % 0.2 % (0.0-0.8); Eosinophils % 0.1 % (0.00-10.9); Hematocrit 34.3 VOL% (35.7-47.0); Hemoglobin 10.4 GM/DL (12.0-16.0); Immature Granulocytes % 13.1 %; Lymphocytes # 1.1 10*3/uL (1.4-4.0); Lymphocytes % 13.4 % (21.3-54.2); Mean Corpuscular HGB Conc 30.3 GM/DL (32-36); Mean Corpuscular Volume 93.7 FL (87-102); Monocytes % 26.2 % (1.7-12.7); NRBC # 0.04 10*3/uL; Platelet Count 234 T/CUMM (130-400); Red Blood Count 3.66 MC/CUMM (3.8-5.5); Red Cell Distribution Width 16.7 % (9.3-17.3); White Blood Count 8.4 T/CUMM (4-12)
[2019-10-25 06:41] LABS: Alanine Aminotransferase 14 U/L (13-56); Albumin 2.7 G/DL (3.4-5.0); Alkaline Phosphatase 83 U/L (45-117); Aspartate Amino Transferase 18 U/L (0-37); Bilirubin,Total < 0.39 MG/DL (0.2-1.0); Blood Urea Nitrogen 10 MG/DL (7-18); Calcium 8.4 MG/DL (8.5-10.1); Estimated Glom Filtration Rate 55 ML/MIN; Glucose 85 MG/DL (74-106); Osmolality,Calculated 276.4 MOS/KG (273-304); Total Protein 5.7 G/DL (6.4-8.3)
[2019-10-25 08:51] LABS: Band Neutrophils 18 % (0-10); Lymphocytes 27 % (20-55); Metamyelocytes 5 %; Nucleated Red Blood Cells 2 (0-5); Segmented Neutrophils 30 % (50-85); Total Cells Counted 100
[2019-10-25] MEDS: LEVOTHYROXINE 150 MCG TABLET PO SCH (08:52)
[2019-10-25] MEDS: glipiZIDE 5 MG TABLET PO SCH ×2 (08:52→19:10)
[2019-10-25] MEDS: FUROSEMIDE 40 MG/4 ML VIAL IV SCH (08:52)
[2019-10-25] MEDS: DOCUSATE SODIUM 100 MG CAPSULE PO SCH ×2 (08:52→20:55)
[2019-10-25] MEDS: FILGRASTIM-SNDZ 300 MCG/0.5 ML SYRINGE SUBCUT SCH (08:52)
[2019-10-25] MEDS: INSULIN GLARGINE 100 UNIT/ML SUBCUT SCH (08:53)
[2019-10-25] MEDS: NYSTATIN POWDER 15 GM BOTTLE TOP SCH ×3 (08:53→20:55)
[2019-10-25] MEDS: PANTOPRAZOLE 40 MG TABLET PO SCH (08:53)
[2019-10-25] MEDS: amLODIPine 10 MG TABLET PO SCH (08:53)
[2019-10-25 08:54] LABS: Anisocytosis 2+; Hypochromasia 2+; Microcytosis 1+; Ovalocytes Slight
[2019-10-25 08:55] LABS: Platelet Estimate Adequate; Polychromasia Few
[2019-10-25] MEDS: TEMAZEPAM 7.5 MG CAPSULE PO PRN (20:54)
[2019-10-25] MEDS: SIMVASTATIN 20 MG TABLET PO SCH (20:55)
[2019-10-25] MEDS: ALPRAZolam 0.25 MG TABLET PO PRN (20:55)
[2019-10-25] MEDS: allopurinoL 300 MG TABLET PO SCH (20:55)
[2019-10-25] MEDS: ASPIRIN EC 81 MG TABLET PO SCH (20:55)
[2019-10-25] MEDS: MEGESTROL 400 MG/10 ML UDCUP PO SCH (20:58)
[2019-10-26] MEDS: IPRATROPIUM 500 MCG/2.5 ML NEB RESP TX SCH ×4 (01:55→20:37)
[2019-10-26 05:07] LABS: Osmolality,Calculated 275.5 MOS/KG (273-304)
[2019-10-26] MEDS: ALPRAZolam 0.25 MG TABLET PO PRN (07:17)
[2019-10-26] MEDS: ACETAMINOPHEN 325 MG TABLET PO PRN (07:17)
[2019-10-26] MEDS: LEVOTHYROXINE 150 MCG TABLET PO SCH (07:17)
[2019-10-26] MEDS: SODIUM CHLORIDE 0.9% 1,000 ML IV SCH (07:19)
[2019-10-26] MEDS: INSULIN LISPRO 100 UNIT/ML SUBCUT SCH ×4 (08:23→21:41)
[2019-10-26] MEDS: FILGRASTIM-SNDZ 300 MCG/0.5 ML SYRINGE SUBCUT SCH (09:17)
[2019-10-26] MEDS: INSULIN GLARGINE 100 UNIT/ML SUBCUT SCH (09:17)
[2019-10-26] MEDS: FUROSEMIDE 40 MG/4 ML VIAL IV SCH (09:17)
[2019-10-26] MEDS: glipiZIDE 5 MG TABLET PO SCH ×2 (09:18→16:41)
[2019-10-26] MEDS: MEGESTROL 400 MG/10 ML UDCUP PO SCH ×2 (09:18→21:40)
[2019-10-26] MEDS: amLODIPine 10 MG TABLET PO SCH (09:18)
[2019-10-26] MEDS: DOCUSATE SODIUM 100 MG CAPSULE PO SCH ×2 (09:18→21:43)
[2019-10-26] MEDS: CLOTRIMAZOLE 10 MG TROCHE PO SCH ×4 (09:18→21:49)
[2019-10-26] MEDS: PANTOPRAZOLE 40 MG TABLET PO SCH (09:18)
[2019-10-26] MEDS: NYSTATIN POWDER 15 GM BOTTLE TOP SCH ×3 (09:21→21:44)
[2019-10-26] MEDS: MENTHOL/ZINC OXIDE OINT 71 GM JAR TOP SCH ×2 (09:21→21:42)
[2019-10-26 11:25] LABS: Basophils % 0.1 % (0.0-0.8); Eosinophils % 0.1 % (0.00-10.9); Hematocrit 33.2 VOL% (35.7-47.0); Hemoglobin 10.2 GM/DL (12.0-16.0); Immature Granulocytes % 15.9 %; Immature Granulocytes Absolute 2.49 #; Lymphocytes # 1.8 10*3/uL (1.4-4.0); Lymphocytes % 11.8 % (21.3-54.2); Mean Corpuscular HGB Conc 30.7 GM/DL (32-36); Mean Corpuscular Volume 93.3 FL (87-102); Mean Platelet Volume 8.8 FL (9.6-12.0); Monocytes % 16.8 % (1.7-12.7); NRBC # 0.08 10*3/uL; Neutrophils % 55.3 % (38.7-73.9); Platelet Count 202 T/CUMM (130-400); Red Blood Count 3.56 MC/CUMM (3.8-5.5); Red Cell Distribution Width 16.9 % (9.3-17.3); White Blood Count 15.6 T/CUMM (4-12)
[2019-10-26 11:45] LABS: Band Neutrophils 8 % (0-10); Lymphocytes 22 % (20-55); Metamyelocytes 1 %; Myelocytes 1 %; Nucleated Red Blood Cells 3 (0-5); Platelet Estimate Adequate; Segmented Neutrophils 54 % (50-85); Total Cells Counted 100
[2019-10-26 11:46] LABS: Atypical Lymphocytes Few; Hypochromasia 1+; Microcytosis 1+
[2019-10-26] MEDS: allopurinoL 300 MG TABLET PO SCH (21:41)
[2019-10-26] MEDS: TEMAZEPAM 7.5 MG CAPSULE PO PRN (21:41)
[2019-10-26] MEDS: ASPIRIN EC 81 MG TABLET PO SCH (21:41)
[2019-10-26] MEDS: SIMVASTATIN 20 MG TABLET PO SCH (21:49)
[2019-10-27] MEDS: SODIUM CHLORIDE 0.9% 1,000 ML IV SCH ×2 (03:30→21:39)
[2019-10-27 04:11] LABS: Basophils % 0.1 % (0.0-0.8); Hematocrit 31.9 VOL% (35.7-47.0); Hemoglobin 9.8 GM/DL (12.0-16.0); Immature Granulocytes % 15.4 %; Immature Granulocytes Absolute 4.67 #; Lymphocytes # 2.4 10*3/uL (1.4-4.0); Lymphocytes % 7.8 % (21.3-54.2); Mean Corpuscular HGB Conc 30.7 GM/DL (32-36); Mean Corpuscular Volume 93.3 FL (87-102); Mean Platelet Volume 8.9 FL (9.6-12.0); Monocytes % 16.2 % (1.7-12.7); NRBC # 0.09 10*3/uL; Neutrophils % 60.5 % (38.7-73.9); Platelet Count 242 T/CUMM (130-400); Red Blood Count 3.42 MC/CUMM (3.8-5.5); Red Cell Distribution Width 16.7 % (9.3-17.3); White Blood Count 30.3 T/CUMM (4-12)
[2019-10-27 05:03] LABS: Calcium 8.4 MG/DL (8.5-10.1); Osmolality,Calculated 278.5 MOS/KG (273-304)
[2019-10-27 05:14] LABS: Band Neutrophils 8 % (0-10); Lymphocytes 10 % (20-55); Metamyelocytes 1 %; Myelocytes 3 %; Segmented Neutrophils 61 % (50-85); Total Cells Counted 100
[2019-10-27 05:15] LABS: Atypical Lymphocytes Few; Hypochromasia 1+; Platelet Estimate Normal
[2019-10-27 05:16] LABS: Polychromasia Few
[2019-10-27] MEDS: LEVOTHYROXINE 150 MCG TABLET PO SCH (06:24)
[2019-10-27] MEDS: IPRATROPIUM 500 MCG/2.5 ML NEB RESP TX SCH ×4 (07:31→22:25)
[2019-10-27] MEDS: CLOTRIMAZOLE 10 MG TROCHE PO SCH ×4 (08:18→21:56)
[2019-10-27] MEDS: DOCUSATE SODIUM 100 MG CAPSULE PO SCH ×2 (08:18→22:00)
[2019-10-27] MEDS: amLODIPine 10 MG TABLET PO SCH (08:18)
[2019-10-27] MEDS: PANTOPRAZOLE 40 MG TABLET PO SCH (08:18)
[2019-10-27] MEDS: MEGESTROL 400 MG/10 ML UDCUP PO SCH ×2 (08:18→21:56)
[2019-10-27] MEDS: glipiZIDE 5 MG TABLET PO SCH ×2 (08:18→17:34)
[2019-10-27] MEDS: INSULIN GLARGINE 100 UNIT/ML SUBCUT SCH (08:18)
[2019-10-27] MEDS: INSULIN LISPRO 100 UNIT/ML SUBCUT SCH ×4 (08:19→21:40)
[2019-10-27] MEDS: NYSTATIN POWDER 15 GM BOTTLE TOP SCH ×3 (08:19→21:37)
[2019-10-27] MEDS: FUROSEMIDE 40 MG/4 ML VIAL IV SCH (08:19)
[2019-10-27] MEDS: MENTHOL/ZINC OXIDE OINT 71 GM JAR TOP SCH ×2 (08:20→21:37)
[2019-10-27] MEDS: POTASSIUM CHLORIDE RIDER 10 MEQ in PREMIX 1 EACH IV SCH ×3 (17:33→22:51)
[2019-10-27 20:44] LABS: Apearance,Urine CLEAR (Clear); Bacteria,Urine Few /HPF (Few); Bilirubin,Urine Negative (Negative); Blood, Urine Small mg/dL (Negative); Glucose,Urine (UA) Negative (Negative); Ketones,Urine Negative (Negative); Mucus,Urine Occasional /LPF (Occasional); Nitrite,Urine Negative (Negative); Protein,Urine Negative; RBC,Urine 7 /HPF (0-4); Squamous Epithelial Cell,Urine Occasional /HPF (0-10); Urine Color Yellow (Yellow); Urine Specific Gravity 1.012 (1.001-1.035); Urine Urobilinogen < 2.0 EU/DL (0.2-1.0); WBC,Urine 10 /HPF (0-6)
[2019-10-27] MEDS: ASPIRIN EC 81 MG TABLET PO SCH (21:37)
[2019-10-27] MEDS: SIMVASTATIN 20 MG TABLET PO SCH (21:37)
[2019-10-27] MEDS: TEMAZEPAM 7.5 MG CAPSULE PO PRN (21:37)
[2019-10-27] MEDS: allopurinoL 300 MG TABLET PO SCH (21:37)
[2019-10-28] MEDS: IPRATROPIUM 500 MCG/2.5 ML NEB RESP TX SCH ×4 (01:48→19:44)
[2019-10-28 06:10] LABS: Hematocrit 30.7 VOL% (35.7-47.0); Hemoglobin 9.6 GM/DL (12.0-16.0); Immature Granulocytes % 25.5 %; Immature Granulocytes Absolute 5.37 #; Lymphocytes # 2.5 10*3/uL (1.4-4.0); Mean Corpuscular HGB Conc 31.3 GM/DL (32-36); Mean Corpuscular Volume 91.6 FL (87-102); Mean Platelet Volume 9.5 FL (9.6-12.0); Monocytes % 15.3 % (1.7-12.7); NRBC # 0.02 10*3/uL; Neutrophils % 47.2 % (38.7-73.9); Platelet Count 200 T/CUMM (130-400); Red Blood Count 3.35 MC/CUMM (3.8-5.5); Red Cell Distribution Width 16.8 % (9.3-17.3)
[2019-10-28 06:26] LABS: Albumin 2.5 G/DL (3.4-5.0); Bilirubin,Total 0.4 MG/DL (0.2-1.0); Calcium 8.4 MG/DL (8.5-10.1); Osmolality,Calculated 279.3 MOS/KG (273-304); Total Protein 5.3 G/DL (6.4-8.3)
[2019-10-28 06:29] LABS: Band Neutrophils 8 % (0-10); Hypochromasia 1+; Lymphocytes 23 % (20-55); Microcytosis Slight; Myelocytes 2 %; Platelet Estimate Adequate; Segmented Neutrophils 56 % (50-85); Total Cells Counted 100
[2019-10-28 06:30] LABS: Atypical Lymphocytes Few
[2019-10-28] MEDS: INSULIN GLARGINE 100 UNIT/ML SUBCUT SCH (09:52)
[2019-10-28] MEDS: MENTHOL/ZINC OXIDE OINT 71 GM JAR TOP SCH ×2 (09:53→20:14)
[2019-10-28] MEDS: MEGESTROL 400 MG/10 ML UDCUP PO SCH ×2 (09:53→20:13)
[2019-10-28] MEDS: FUROSEMIDE 40 MG/4 ML VIAL IV SCH (09:53)
[2019-10-28] MEDS: PANTOPRAZOLE 40 MG TABLET PO SCH (09:53)
[2019-10-28] MEDS: amLODIPine 10 MG TABLET PO SCH (09:53)
[2019-10-28] MEDS: glipiZIDE 5 MG TABLET PO SCH ×2 (09:53→19:01)
[2019-10-28] MEDS: DOCUSATE SODIUM 100 MG CAPSULE PO SCH ×2 (09:53→20:13)
[2019-10-28] MEDS: NYSTATIN POWDER 15 GM BOTTLE TOP SCH ×3 (09:54→20:14)
[2019-10-28] MEDS: CLOTRIMAZOLE 10 MG TROCHE PO SCH ×3 (09:54→20:12)
[2019-10-28] MEDS: LIDOCAINE 5% PATCH TRANSDERM SCH ×2 (19:00→20:18)
[2019-10-28] MEDS: INSULIN LISPRO 100 UNIT/ML SUBCUT SCH ×2 (19:00→20:23)
[2019-10-28] MEDS: LEVOTHYROXINE 150 MCG TABLET PO SCH (19:00)
[2019-10-28] MEDS: ASPIRIN EC 81 MG TABLET PO SCH (20:13)
[2019-10-28] MEDS: allopurinoL 300 MG TABLET PO SCH (20:13)
[2019-10-28] MEDS: SIMVASTATIN 20 MG TABLET PO SCH (20:13)
[2019-10-28] MEDS: SODIUM CHLORIDE 0.9% 1,000 ML IV SCH (20:14)
[2019-10-28] MEDS ORDERED: POTASSIUM CHLORIDE 20 MEQ TABLET PO ONE (22:18)
[2019-10-29] MEDS: IPRATROPIUM 500 MCG/2.5 ML NEB RESP TX SCH ×4 (02:05→19:45)
[2019-10-29] MEDS: LEVOTHYROXINE 150 MCG TABLET PO SCH (05:41)
[2019-10-29] MEDS: INSULIN LISPRO 100 UNIT/ML SUBCUT SCH ×4 (08:14→23:50)
[2019-10-29] MEDS: amLODIPine 10 MG TABLET PO SCH (08:23)
[2019-10-29] MEDS: ACETAMINOPHEN 325 MG TABLET PO PRN (08:23)
[2019-10-29] MEDS: MEGESTROL 400 MG/10 ML UDCUP PO SCH ×2 (08:23→23:50)
[2019-10-29] MEDS: FUROSEMIDE 40 MG/4 ML VIAL IV SCH (08:25)
[2019-10-29] MEDS: ONDANSETRON 4 MG/2 ML VIAL IV PRN (08:27)
[2019-10-29] MEDS: PANTOPRAZOLE 40 MG TABLET PO SCH (08:28)
[2019-10-29] MEDS: NYSTATIN POWDER 15 GM BOTTLE TOP SCH ×3 (08:28→23:50)
[2019-10-29] MEDS: INSULIN GLARGINE 100 UNIT/ML SUBCUT SCH (08:29)
[2019-10-29] MEDS: LIDOCAINE 5% PATCH TRANSDERM SCH (08:29)
[2019-10-29] MEDS: MENTHOL/ZINC OXIDE OINT 71 GM JAR TOP SCH ×2 (08:29→23:50)
[2019-10-29] MEDS: DOCUSATE SODIUM 100 MG CAPSULE PO SCH ×2 (08:33→22:02)
[2019-10-29] MEDS: glipiZIDE 5 MG TABLET PO SCH ×2 (08:33→17:58)
[2019-10-29] MEDS: LACTULOSE 20 GM/30 ML UDCUP PO PRN (08:33)
[2019-10-29] MEDS: CLOTRIMAZOLE 10 MG TROCHE PO SCH ×4 (08:34→23:50)
[2019-10-29] MEDS: SODIUM CHLORIDE 0.9% 1,000 ML IV SCH (15:14)
[2019-10-29] MEDS: ASPIRIN EC 81 MG TABLET PO SCH (22:02)
[2019-10-29] MEDS: BISACODYL 10 MG SUPP RECTAL PRN (22:03)
[2019-10-29] MEDS: MAGNESIUM HYDROXIDE SUSP 30 ML UDCUP PO PRN (22:03)
[2019-10-29] MEDS: allopurinoL 300 MG TABLET PO SCH (22:03)
[2019-10-29] MEDS: SIMVASTATIN 20 MG TABLET PO SCH (22:03)
[2019-10-30] MEDS: SODIUM CHLORIDE 0.9% 1,000 ML IV SCH ×3 (00:30→23:49)
[2019-10-30] MEDS: LIDOCAINE 5% PATCH TRANSDERM SCH ×3 (00:33→22:18)
[2019-10-30] MEDS: IPRATROPIUM 500 MCG/2.5 ML NEB RESP TX SCH ×4 (00:40→19:55)
[2019-10-30] MEDS ORDERED: ALBUTEROL/IPRATROPIUM 3 ML NEB RESP TX SCH (01:00)
[2019-10-30 05:13] LABS: Basophils % 0.2 % (0.0-0.8); Eosinophils % 0.1 % (0.00-10.9); Hematocrit 30.8 VOL% (35.7-47.0); Hemoglobin 9.7 GM/DL (12.0-16.0); Immature Granulocytes % 18.9 %; Immature Granulocytes Absolute 2.47 #; Lymphocytes % 15.5 % (21.3-54.2); Mean Corpuscular HGB Conc 31.5 GM/DL (32-36); Mean Corpuscular Volume 89.5 FL (87-102); Mean Platelet Volume 10.4 FL (9.6-12.0); Monocytes % 18.5 % (1.7-12.7); Neutrophils % 46.8 % (38.7-73.9); Platelet Count 107 T/CUMM (130-400); Red Blood Count 3.44 MC/CUMM (3.8-5.5)
[2019-10-30 05:23] LABS: Calcium 8.3 MG/DL (8.5-10.1); Osmolality,Calculated 280.3 MOS/KG (273-304)
[2019-10-30 06:17] LABS: Band Neutrophils 2 % (0-10); Lymphocytes 22 % (20-55); Platelet Estimate Decreased; Segmented Neutrophils 63 % (50-85); Total Cells Counted 100
[2019-10-30 06:18] LABS: Hypochromasia Slight; Polychromasia Slight
[2019-10-30] MEDS: LEVOTHYROXINE 150 MCG TABLET PO SCH (06:25)
[2019-10-30] MEDS: INSULIN LISPRO 100 UNIT/ML SUBCUT SCH ×4 (10:04→22:00)
[2019-10-30] MEDS: DOCUSATE SODIUM 100 MG CAPSULE PO SCH ×2 (10:09→21:36)
[2019-10-30] MEDS: FUROSEMIDE 40 MG/4 ML VIAL IV SCH (10:09)
[2019-10-30] MEDS: CLOTRIMAZOLE 10 MG TROCHE PO SCH ×4 (10:09→23:43)
[2019-10-30] MEDS: INSULIN GLARGINE 100 UNIT/ML SUBCUT SCH (10:09)
[2019-10-30] MEDS: MENTHOL/ZINC OXIDE OINT 71 GM JAR TOP SCH ×2 (10:10→21:37)
[2019-10-30] MEDS: PANTOPRAZOLE 40 MG TABLET PO SCH (10:10)
[2019-10-30] MEDS: glipiZIDE 5 MG TABLET PO SCH ×2 (10:10→16:49)
[2019-10-30] MEDS: amLODIPine 10 MG TABLET PO SCH (10:10)
[2019-10-30] MEDS: NYSTATIN POWDER 15 GM BOTTLE TOP SCH ×3 (10:10→21:37)
[2019-10-30] MEDS: MEGESTROL 400 MG/10 ML UDCUP PO SCH ×2 (10:10→21:36)
[2019-10-30] MEDS: MAGNESIUM HYDROXIDE SUSP 30 ML UDCUP PO SCH ×2 (10:10→21:36)
[2019-10-30] MEDS: AMPICILLIN/SULBACTAM 1,500 MG in SODIUM CHLORIDE 0.9% 100 ML IV SCH ×2 (16:49→23:42)
[2019-10-30] MEDS: allopurinoL 300 MG TABLET PO SCH (21:36)
[2019-10-30] MEDS: SIMVASTATIN 20 MG TABLET PO SCH (21:36)
[2019-10-30] MEDS: ASPIRIN EC 81 MG TABLET PO SCH (21:36)
[2019-10-31] MEDS: IPRATROPIUM 500 MCG/2.5 ML NEB RESP TX SCH ×4 (00:51→19:30)
[2019-10-31] MEDS: LEVOTHYROXINE 150 MCG TABLET PO SCH (05:43)
[2019-10-31 05:48] LABS: Basophils % 0.2 % (0.0-0.8); Hematocrit 30.4 VOL% (35.7-47.0); Hemoglobin 9.5 GM/DL (12.0-16.0); Immature Granulocytes % 16.8 %; Immature Granulocytes Absolute 1.63 #; Lymphocytes % 20.1 % (21.3-54.2); Mean Corpuscular HGB Conc 31.3 GM/DL (32-36); Mean Corpuscular Volume 92.4 FL (87-102); Mean Platelet Volume 10.6 FL (9.6-12.0); Monocytes % 18.4 % (1.7-12.7); NRBC # 0.02 10*3/uL; Neutrophils % 44.5 % (38.7-73.9); Red Blood Count 3.29 MC/CUMM (3.8-5.5); White Blood Count 9.7 T/CUMM (4-12)
[2019-10-31 06:07] LABS: Calcium 8.3 MG/DL (8.5-10.1); Osmolality,Calculated 281.4 MOS/KG (273-304)
[2019-10-31 06:12] LABS: Platelet Count 100 T/CUMM (130-400)
[2019-10-31 06:33] LABS: Atypical Lymphocytes Few; Band Neutrophils 5 % (0-10); Hypochromasia 1+; Lymphocytes 24 % (20-55); Metamyelocytes 4 %; Microcytosis 1+; Myelocytes 1 %; Nucleated Red Blood Cells 1 (0-5); Segmented Neutrophils 47 % (50-85); Total Cells Counted 100
[2019-10-31 06:34] LABS: Anisocytosis 1+; Polychromasia Slight
[2019-10-31 06:35] LABS: Platelet Estimate Decreased
[2019-10-31] MEDS: INSULIN LISPRO 100 UNIT/ML SUBCUT SCH ×4 (08:04→21:00)
[2019-10-31] MEDS: AMPICILLIN/SULBACTAM 1,500 MG in SODIUM CHLORIDE 0.9% 100 ML IV SCH (08:16)
[2019-10-31] MEDS: MENTHOL/ZINC OXIDE OINT 71 GM JAR TOP SCH ×2 (08:16→21:01)
[2019-10-31] MEDS: LIDOCAINE 5% PATCH TRANSDERM SCH ×2 (08:16→21:00)
[2019-10-31] MEDS: DOCUSATE SODIUM 100 MG CAPSULE PO SCH ×2 (08:17→21:00)
[2019-10-31] MEDS: PANTOPRAZOLE 40 MG TABLET PO SCH (08:17)
[2019-10-31] MEDS: MAGNESIUM HYDROXIDE SUSP 30 ML UDCUP PO SCH ×2 (08:17→21:00)
[2019-10-31] MEDS: MEGESTROL 400 MG/10 ML UDCUP PO SCH ×2 (08:17→21:00)
[2019-10-31] MEDS: glipiZIDE 5 MG TABLET PO SCH ×2 (08:17→16:17)
[2019-10-31] MEDS: CLOTRIMAZOLE 10 MG TROCHE PO SCH ×4 (08:17→21:00)
[2019-10-31] MEDS: NYSTATIN POWDER 15 GM BOTTLE TOP SCH ×3 (08:17→21:01)
[2019-10-31] MEDS: amLODIPine 10 MG TABLET PO SCH (08:17)
[2019-10-31] MEDS: FUROSEMIDE 40 MG/4 ML VIAL IV SCH (08:17)
[2019-10-31] MEDS: INSULIN GLARGINE 100 UNIT/ML SUBCUT SCH (08:18)
[2019-10-31] MEDS ORDERED: LINEZOLID INJ 600 MG in PREMIX 1 EACH IV SCH (14:30)
[2019-10-31] MEDS: LINEZOLID INJ 600 MG in PREMIX 1 EACH IV SCH (16:17)
[2019-10-31] MEDS: DICLOFENAC 1% GEL 100 GM TUBE TOP PRN (16:17)
[2019-10-31] MEDS: SODIUM CHLORIDE 0.9% 1,000 ML IV SCH (16:18)
[2019-10-31] MEDS: allopurinoL 300 MG TABLET PO SCH (20:59)
[2019-10-31] MEDS: ASPIRIN EC 81 MG TABLET PO SCH (20:59)
[2019-10-31] MEDS: SIMVASTATIN 20 MG TABLET PO SCH (21:00)
[2019-10-31] MEDS: BISACODYL 10 MG SUPP RECTAL PRN (22:31)
[2019-10-31] MEDS: ACETAMINOPHEN 325 MG TABLET PO PRN (22:31)
[2019-11-01] MEDS: IPRATROPIUM 500 MCG/2.5 ML NEB RESP TX SCH ×3 (01:55→12:49)
[2019-11-01 05:26] LABS: Basophils # 0.1 10*3/uL (0.0-0.2); Basophils % 0.7 % (0.0-0.8); Hemoglobin 9.2 GM/DL (12.0-16.0); Immature Granulocytes % 14.8 %; Immature Granulocytes Absolute 1.43 #; Lymphocytes # 2.2 10*3/uL (1.4-4.0); Lymphocytes % 22.6 % (21.3-54.2); Mean Corpuscular HGB Conc 30.7 GM/DL (32-36); Mean Corpuscular Volume 93.5 FL (87-102); Monocytes % 18.9 % (1.7-12.7); NRBC # 0.03 10*3/uL; Platelet Count 93 T/CUMM (130-400); Red Blood Count 3.21 MC/CUMM (3.8-5.5); Red Cell Distribution Width 16.6 % (9.3-17.3); White Blood Count 9.7 T/CUMM (4-12)
[2019-11-01] MEDS: LEVOTHYROXINE 150 MCG TABLET PO SCH (05:34)
[2019-11-01] MEDS: LINEZOLID INJ 600 MG in PREMIX 1 EACH IV SCH ×2 (05:35→17:16)
[2019-11-01 05:47] LABS: Calcium 7.7 MG/DL (8.5-10.1); Osmolality,Calculated 279.4 MOS/KG (273-304)
[2019-11-01 06:14] LABS: Anisocytosis Slight; Band Neutrophils 3 % (0-10); Lymphocytes 18 % (20-55); Microcytosis 1+; Platelet Estimate Decreased; Segmented Neutrophils 62 % (50-85); Total Cells Counted 100
[2019-11-01 06:15] LABS: Hypochromasia Slight; Polychromasia Few
[2019-11-01] MEDS: INSULIN LISPRO 100 UNIT/ML SUBCUT SCH ×4 (08:45→20:42)
[2019-11-01] MEDS: amLODIPine 10 MG TABLET PO SCH (09:31)
[2019-11-01] MEDS: CLOTRIMAZOLE 10 MG TROCHE PO SCH ×4 (09:31→20:48)
[2019-11-01] MEDS: glipiZIDE 5 MG TABLET PO SCH ×2 (09:31→17:17)
[2019-11-01] MEDS: INSULIN GLARGINE 100 UNIT/ML SUBCUT SCH (09:31)
[2019-11-01] MEDS: MEGESTROL 400 MG/10 ML UDCUP PO SCH ×2 (09:31→20:43)
[2019-11-01] MEDS: DOCUSATE SODIUM 100 MG CAPSULE PO SCH ×2 (09:31→20:40)
[2019-11-01] MEDS: PANTOPRAZOLE 40 MG TABLET PO SCH (09:31)
[2019-11-01] MEDS: MAGNESIUM HYDROXIDE SUSP 30 ML UDCUP PO SCH ×2 (09:32→20:47)
[2019-11-01] MEDS: LIDOCAINE 5% PATCH TRANSDERM SCH ×2 (09:33→20:41)
[2019-11-01] MEDS: FUROSEMIDE 40 MG/4 ML VIAL IV SCH (09:38)
[2019-11-01] MEDS: NYSTATIN POWDER 15 GM BOTTLE TOP SCH ×3 (09:42→20:45)
[2019-11-01] MEDS: DICLOFENAC 1% GEL 100 GM TUBE TOP PRN ×2 (09:42→20:45)
[2019-11-01] MEDS: SODIUM CHLORIDE 0.9% 1,000 ML IV SCH ×3 (09:43→20:33)
[2019-11-01] MEDS: MENTHOL/ZINC OXIDE OINT 71 GM JAR TOP SCH ×2 (09:43→20:45)
[2019-11-01] MEDS: diphenhydrAMINE CAP 25 MG CAPSULE PO PRN (20:40)
[2019-11-01] MEDS: ACETAMINOPHEN 325 MG TABLET PO PRN (20:40)
[2019-11-01] MEDS: ASPIRIN EC 81 MG TABLET PO SCH (20:41)
[2019-11-01] MEDS: allopurinoL 300 MG TABLET PO SCH (20:41)
[2019-11-01] MEDS: SIMVASTATIN 20 MG TABLET PO SCH (20:41)
[2019-11-02] MEDS: IPRATROPIUM 500 MCG/2.5 ML NEB RESP TX SCH ×5 (00:45→20:05)
[2019-11-02 04:58] LABS: Basophils % 0.4 % (0.0-0.8); Hematocrit 28.6 VOL% (35.7-47.0); Hemoglobin 8.8 GM/DL (12.0-16.0); Immature Granulocytes % 9.1 %; Lymphocytes # 2.1 10*3/uL (1.4-4.0); Lymphocytes % 27.1 % (21.3-54.2); Mean Corpuscular HGB Conc 30.8 GM/DL (32-36); Mean Corpuscular Volume 93.5 FL (87-102); Mean Platelet Volume 10.6 FL (9.6-12.0); Monocytes % 20.6 % (1.7-12.7); NRBC # 0.05 10*3/uL; Neutrophils % 42.8 % (38.7-73.9); Platelet Count 107 T/CUMM (130-400); Red Blood Count 3.06 MC/CUMM (3.8-5.5); Red Cell Distribution Width 17.2 % (9.3-17.3); White Blood Count 7.7 T/CUMM (4-12)
[2019-11-02] MEDS: LINEZOLID INJ 600 MG in PREMIX 1 EACH IV SCH ×2 (05:02→16:03)
[2019-11-02 05:17] LABS: Osmolality,Calculated 277.4 MOS/KG (273-304)
[2019-11-02] MEDS: LEVOTHYROXINE 150 MCG TABLET PO SCH (05:30)
[2019-11-02 05:43] LABS: Band Neutrophils 6 % (0-10); Lymphocytes 32 % (20-55); Myelocytes 2 %; Segmented Neutrophils 46 % (50-85); Total Cells Counted 100
[2019-11-02 05:44] LABS: Anisocytosis 1+; Hypochromasia Slight; Platelet Estimate Adequate
[2019-11-02] MEDS: SODIUM CHLORIDE 0.9% 1,000 ML IV SCH ×2 (07:00→20:06)
[2019-11-02] MEDS: MENTHOL/ZINC OXIDE OINT 71 GM JAR TOP SCH ×2 (09:35→21:06)
[2019-11-02] MEDS: NYSTATIN POWDER 15 GM BOTTLE TOP SCH ×3 (09:35→21:06)
[2019-11-02] MEDS: DOCUSATE SODIUM 100 MG CAPSULE PO SCH ×2 (09:36→21:06)
[2019-11-02] MEDS: CLOTRIMAZOLE 10 MG TROCHE PO SCH ×4 (09:36→21:07)
[2019-11-02] MEDS: INSULIN GLARGINE 100 UNIT/ML SUBCUT SCH (09:36)
[2019-11-02] MEDS: glipiZIDE 5 MG TABLET PO SCH ×2 (09:36→16:00)
[2019-11-02] MEDS: MAGNESIUM HYDROXIDE SUSP 30 ML UDCUP PO SCH ×2 (09:36→21:03)
[2019-11-02] MEDS: amLODIPine 10 MG TABLET PO SCH (09:37)
[2019-11-02] MEDS: PANTOPRAZOLE 40 MG TABLET PO SCH (09:37)
[2019-11-02] MEDS: FUROSEMIDE 40 MG/4 ML VIAL IV SCH (09:41)
[2019-11-02] MEDS: MEGESTROL 400 MG/10 ML UDCUP PO SCH ×2 (09:41→21:03)
[2019-11-02] MEDS: LIDOCAINE 5% PATCH TRANSDERM SCH ×2 (09:41→21:04)
[2019-11-02] MEDS: INSULIN LISPRO 100 UNIT/ML SUBCUT SCH ×4 (09:47→21:04)
[2019-11-02] MEDS: ACETAMINOPHEN 325 MG TABLET PO PRN (21:05)
[2019-11-02] MEDS: ASPIRIN EC 81 MG TABLET PO SCH (21:06)
[2019-11-02] MEDS: allopurinoL 300 MG TABLET PO SCH (21:06)
[2019-11-02] MEDS: DICLOFENAC 1% GEL 100 GM TUBE TOP PRN (21:06)
[2019-11-02] MEDS: diphenhydrAMINE CAP 25 MG CAPSULE PO PRN (21:06)
[2019-11-02] MEDS: SIMVASTATIN 20 MG TABLET PO SCH (21:07)
[2019-11-03] MEDS: IPRATROPIUM 500 MCG/2.5 ML NEB RESP TX SCH ×4 (00:54→19:21)
[2019-11-03] MEDS: LINEZOLID INJ 600 MG in PREMIX 1 EACH IV SCH ×2 (04:46→16:56)
[2019-11-03] MEDS: LEVOTHYROXINE 150 MCG TABLET PO SCH (05:00)
[2019-11-03 05:36] LABS: Basophils % 0.4 % (0.0-0.8); Hematocrit 28.9 VOL% (35.7-47.0); Hemoglobin 9.1 GM/DL (12.0-16.0); Immature Granulocytes % 4.9 %; Immature Granulocytes Absolute 0.38 #; Lymphocytes # 2.7 10*3/uL (1.4-4.0); Lymphocytes % 34.6 % (21.3-54.2); Mean Corpuscular HGB Conc 31.5 GM/DL (32-36); Mean Platelet Volume 10.6 FL (9.6-12.0); Monocytes % 20.7 % (1.7-12.7); NRBC # 0.05 10*3/uL; Neutrophils % 39.4 % (38.7-73.9); Platelet Count 153 T/CUMM (130-400); Red Blood Count 3.14 MC/CUMM (3.8-5.5); Red Cell Distribution Width 17.8 % (9.3-17.3); White Blood Count 7.8 T/CUMM (4-12)
[2019-11-03 05:48] LABS: Calcium 8.5 MG/DL (8.5-10.1); Osmolality,Calculated 281.5 MOS/KG (273-304)
[2019-11-03 06:27] LABS: Band Neutrophils 3 % (0-10); Lymphocytes 35 % (20-55); Segmented Neutrophils 41 % (50-85); Total Cells Counted 100
[2019-11-03 06:28] LABS: Anisocytosis 1+; Platelet Estimate Normal; Polychromasia 1+
[2019-11-03] MEDS: DOCUSATE SODIUM 100 MG CAPSULE PO SCH ×2 (09:47→21:18)
[2019-11-03] MEDS: amLODIPine 10 MG TABLET PO SCH (09:47)
[2019-11-03] MEDS: PANTOPRAZOLE 40 MG TABLET PO SCH (09:47)
[2019-11-03] MEDS: INSULIN GLARGINE 100 UNIT/ML SUBCUT SCH (09:47)
[2019-11-03] MEDS: CLOTRIMAZOLE 10 MG TROCHE PO SCH ×4 (09:47→21:18)
[2019-11-03] MEDS: FUROSEMIDE 40 MG/4 ML VIAL IV SCH (09:48)
[2019-11-03] MEDS: SODIUM CHLORIDE 0.9% 1,000 ML IV SCH (09:48)
[2019-11-03] MEDS: MENTHOL/ZINC OXIDE OINT 71 GM JAR TOP SCH ×2 (09:49→21:18)
[2019-11-03] MEDS: NYSTATIN POWDER 15 GM BOTTLE TOP SCH ×3 (09:49→21:18)
[2019-11-03] MEDS: DICLOFENAC 1% GEL 100 GM TUBE TOP PRN (09:49)
[2019-11-03] MEDS: INSULIN LISPRO 100 UNIT/ML SUBCUT SCH ×4 (09:52→21:37)
[2019-11-03] MEDS: glipiZIDE 5 MG TABLET PO SCH ×2 (09:59→16:57)
[2019-11-03] MEDS: LIDOCAINE 5% PATCH TRANSDERM SCH ×2 (10:02→21:21)
[2019-11-03] MEDS: MEGESTROL 400 MG/10 ML UDCUP PO SCH ×2 (10:04→21:20)
[2019-11-03] MEDS: MAGNESIUM HYDROXIDE SUSP 30 ML UDCUP PO SCH ×2 (10:04→21:56)
[2019-11-03] MEDS: SIMVASTATIN 20 MG TABLET PO SCH (21:18)
[2019-11-03] MEDS: ASPIRIN EC 81 MG TABLET PO SCH (21:18)
[2019-11-03] MEDS: allopurinoL 300 MG TABLET PO SCH (21:18)
[2019-11-04] MEDS: IPRATROPIUM 500 MCG/2.5 ML NEB RESP TX SCH ×4 (01:18→20:30)
[2019-11-04] MEDS: SODIUM CHLORIDE 0.9% 1,000 ML IV SCH (02:56)
[2019-11-04] MEDS: LINEZOLID INJ 600 MG in PREMIX 1 EACH IV SCH ×2 (05:03→16:35)
[2019-11-04] MEDS: LEVOTHYROXINE 150 MCG TABLET PO SCH (05:59)
[2019-11-04 06:34] LABS: Basophils % 0.2 % (0.0-0.8); Hematocrit 28.4 VOL% (35.7-47.0); Hemoglobin 8.7 GM/DL (12.0-16.0); Lymphocytes # 2.6 10*3/uL (1.4-4.0); Lymphocytes % 32.4 % (21.3-54.2); Mean Corpuscular HGB Conc 30.6 GM/DL (32-36); Mean Corpuscular Volume 94.7 FL (87-102); Mean Platelet Volume 10.6 FL (9.6-12.0); Monocytes % 18.3 % (1.7-12.7); Neutrophils % 47.1 % (38.7-73.9); Platelet Count 175 T/CUMM (130-400); Red Cell Distribution Width 18.5 % (9.3-17.3); White Blood Count 8.1 T/CUMM (4-12)
[2019-11-04 06:35] LABS: Immature Granulocytes Absolute 0.16 #; NRBC # 0.03 10*3/uL
[2019-11-04 06:58] LABS: Band Neutrophils 1 % (0-10); Hypochromasia 1+; Lymphocytes 23 % (20-55); Ovalocytes Slight; Platelet Estimate Adequate; Segmented Neutrophils 57 % (50-85); Total Cells Counted 100
[2019-11-04] MEDS: INSULIN LISPRO 100 UNIT/ML SUBCUT SCH ×4 (08:15→21:09)
[2019-11-04] MEDS: INSULIN GLARGINE 100 UNIT/ML SUBCUT SCH (09:10)
[2019-11-04] MEDS: NYSTATIN POWDER 15 GM BOTTLE TOP SCH ×3 (09:10→21:10)
[2019-11-04] MEDS: MENTHOL/ZINC OXIDE OINT 71 GM JAR TOP SCH ×2 (09:10→21:10)
[2019-11-04] MEDS: FUROSEMIDE 40 MG/4 ML VIAL IV SCH (09:10)
[2019-11-04] MEDS: LIDOCAINE 5% PATCH TRANSDERM SCH ×2 (09:10→21:09)
[2019-11-04] MEDS: MAGNESIUM HYDROXIDE SUSP 30 ML UDCUP PO SCH ×2 (09:11→21:09)
[2019-11-04] MEDS: amLODIPine 10 MG TABLET PO SCH (09:11)
[2019-11-04] MEDS: MEGESTROL 400 MG/10 ML UDCUP PO SCH ×2 (09:11→21:09)
[2019-11-04] MEDS: DOCUSATE SODIUM 100 MG CAPSULE PO SCH ×2 (09:11→21:09)
[2019-11-04] MEDS: PANTOPRAZOLE 40 MG TABLET PO SCH (09:11)
[2019-11-04] MEDS: CLOTRIMAZOLE 10 MG TROCHE PO SCH ×4 (09:12→21:09)
[2019-11-04] MEDS: glipiZIDE 5 MG TABLET PO SCH ×2 (09:13→16:35)
[2019-11-04] MEDS: ASPIRIN EC 81 MG TABLET PO SCH (21:09)
[2019-11-04] MEDS: allopurinoL 300 MG TABLET PO SCH (21:09)
[2019-11-04] MEDS: SIMVASTATIN 20 MG TABLET PO SCH (21:09)
[2019-11-05] MEDS: SODIUM CHLORIDE 0.9% 1,000 ML IV SCH ×2 (00:09→21:22)
[2019-11-05] MEDS: IPRATROPIUM 500 MCG/2.5 ML NEB RESP TX SCH ×4 (01:12→21:06)
[2019-11-05] MEDS: LINEZOLID INJ 600 MG in PREMIX 1 EACH IV SCH ×2 (04:44→16:46)
[2019-11-05] MEDS: LEVOTHYROXINE 150 MCG TABLET PO SCH (05:34)
[2019-11-05 05:36] LABS: Basophils % 0.3 % (0.0-0.8); Hematocrit 30.7 VOL% (35.7-47.0); Hemoglobin 9.4 GM/DL (12.0-16.0); Immature Granulocytes Absolute 0.07 #; Lymphocytes # 2.3 10*3/uL (1.4-4.0); Lymphocytes % 32.8 % (21.3-54.2); Mean Corpuscular HGB Conc 30.6 GM/DL (32-36); Mean Corpuscular Volume 93.3 FL (87-102); Mean Platelet Volume 9.9 FL (9.6-12.0); Monocytes % 18.1 % (1.7-12.7); NRBC # 0.02 10*3/uL; Neutrophils % 47.8 % (38.7-73.9); Platelet Count 223 T/CUMM (130-400); Red Blood Count 3.29 MC/CUMM (3.8-5.5); Red Cell Distribution Width 18.5 % (9.3-17.3); White Blood Count 7.1 T/CUMM (4-12)
[2019-11-05 05:42] LABS: Calcium 8.7 MG/DL (8.5-10.1); Osmolality,Calculated 273.8 MOS/KG (273-304)
[2019-11-05 06:00] LABS: Atypical Lymphocytes Few; Band Neutrophils 3 % (0-10); Lymphocytes 27 % (20-55); Nucleated Red Blood Cells 1 (0-5); Segmented Neutrophils 57 % (50-85); Total Cells Counted 100
[2019-11-05 06:01] LABS: Anisocytosis 1+; Hypochromasia 1+; Microcytosis 1+; Polychromasia Slight
[2019-11-05 06:02] LABS: Platelet Estimate Normal
[2019-11-05] MEDS: INSULIN LISPRO 100 UNIT/ML SUBCUT SCH ×4 (08:22→20:01)
[2019-11-05] MEDS: PANTOPRAZOLE 40 MG TABLET PO SCH (08:45)
[2019-11-05] MEDS: INSULIN GLARGINE 100 UNIT/ML SUBCUT SCH (08:45)
[2019-11-05] MEDS: DOCUSATE SODIUM 100 MG CAPSULE PO SCH ×2 (08:45→20:01)
[2019-11-05] MEDS: MAGNESIUM HYDROXIDE SUSP 30 ML UDCUP PO SCH ×2 (08:45→20:01)
[2019-11-05] MEDS: MEGESTROL 400 MG/10 ML UDCUP PO SCH ×2 (08:45→20:01)
[2019-11-05] MEDS: amLODIPine 10 MG TABLET PO SCH (08:45)
[2019-11-05] MEDS: glipiZIDE 5 MG TABLET PO SCH ×2 (08:45→16:46)
[2019-11-05] MEDS: FUROSEMIDE 40 MG/4 ML VIAL IV SCH (08:45)
[2019-11-05] MEDS: CLOTRIMAZOLE 10 MG TROCHE PO SCH ×4 (08:45→20:00)
[2019-11-05] MEDS: LIDOCAINE 5% PATCH TRANSDERM SCH ×2 (08:46→20:01)
[2019-11-05] MEDS: NYSTATIN POWDER 15 GM BOTTLE TOP SCH ×3 (08:46→20:03)
[2019-11-05] MEDS: MENTHOL/ZINC OXIDE OINT 71 GM JAR TOP SCH ×2 (08:46→20:03)
[2019-11-05] MEDS: BISACODYL 10 MG SUPP RECTAL PRN (13:34)
[2019-11-05] MEDS: ASPIRIN EC 81 MG TABLET PO SCH (20:00)
[2019-11-05] MEDS: SIMVASTATIN 20 MG TABLET PO SCH (20:00)
[2019-11-05] MEDS: allopurinoL 300 MG TABLET PO SCH (20:02)
[2019-11-06] MEDS: IPRATROPIUM 500 MCG/2.5 ML NEB RESP TX SCH ×4 (01:19→21:20)
[2019-11-06] MEDS: LINEZOLID INJ 600 MG in PREMIX 1 EACH IV SCH ×2 (04:56→16:29)
[2019-11-06] MEDS: LEVOTHYROXINE 150 MCG TABLET PO SCH (05:58)
[2019-11-06 06:46] LABS: Basophils % 0.2 % (0.0-0.8); Hemoglobin 9.4 GM/DL (12.0-16.0); Immature Granulocytes % 0.7 %; Immature Granulocytes Absolute 0.06 #; Lymphocytes # 2.3 10*3/uL (1.4-4.0); Mean Corpuscular HGB Conc 30.3 GM/DL (32-36); Mean Corpuscular Volume 95.4 FL (87-102); Mean Platelet Volume 9.6 FL (9.6-12.0); Monocytes % 13.6 % (1.7-12.7); Neutrophils % 57.5 % (38.7-73.9); Platelet Count 265 T/CUMM (130-400); Red Blood Count 3.25 MC/CUMM (3.8-5.5); Red Cell Distribution Width 18.7 % (9.3-17.3); White Blood Count 8.1 T/CUMM (4-12)
[2019-11-06 06:59] LABS: Hypochromasia 1+; Ovalocytes Slight; Platelet Estimate Adequate
[2019-11-06 07:01] LABS: Calcium 8.6 MG/DL (8.5-10.1); Osmolality,Calculated 273.8 MOS/KG (273-304)
[2019-11-06] MEDS: INSULIN LISPRO 100 UNIT/ML SUBCUT SCH ×4 (08:55→23:00)
[2019-11-06] MEDS: INSULIN GLARGINE 100 UNIT/ML SUBCUT SCH (09:00)
[2019-11-06] MEDS: LIDOCAINE 5% PATCH TRANSDERM SCH (09:00)
[2019-11-06] MEDS: MEGESTROL 400 MG/10 ML UDCUP PO SCH ×2 (09:01→20:26)
[2019-11-06] MEDS: MAGNESIUM HYDROXIDE SUSP 30 ML UDCUP PO SCH ×2 (09:01→23:01)
[2019-11-06] MEDS: CLOTRIMAZOLE 10 MG TROCHE PO SCH ×4 (09:01→20:32)
[2019-11-06] MEDS: glipiZIDE 5 MG TABLET PO SCH ×2 (09:01→16:28)
[2019-11-06] MEDS: FUROSEMIDE 40 MG/4 ML VIAL IV SCH (09:01)
[2019-11-06] MEDS: amLODIPine 10 MG TABLET PO SCH (09:01)
[2019-11-06] MEDS: DOCUSATE SODIUM 100 MG CAPSULE PO SCH ×2 (09:01→20:26)
[2019-11-06] MEDS: NYSTATIN POWDER 15 GM BOTTLE TOP SCH ×3 (09:02→20:32)
[2019-11-06] MEDS: PANTOPRAZOLE 40 MG TABLET PO SCH (09:02)
[2019-11-06] MEDS: MENTHOL/ZINC OXIDE OINT 71 GM JAR TOP SCH ×2 (09:02→23:00)
[2019-11-06] MEDS ORDERED: ATEZOLIZUMAB 1,200 MG in SODIUM CHLORIDE 0.9% 250 ML IV ONE (13:00)
[2019-11-06] MEDS: FAMOTIDINE 20 MG TABLET PO SCH (14:10)
[2019-11-06] MEDS: DEXAMETHASONE 10 MG/1 ML VIAL IV SCH (14:11)
[2019-11-06] MEDS: diphenhydrAMINE CAP 50 MG CAPSULE PO SCH (14:11)
[2019-11-06] MEDS: GRANISETRON 1 MG/1 ML VIAL IV SCH (14:11)
[2019-11-06] MEDS: ETOPOSIDE 150 MG in SODIUM CHLORIDE 0.9% 500 ML IV SCH (15:27)
[2019-11-06] MEDS: SIMVASTATIN 20 MG TABLET PO SCH (20:26)
[2019-11-06] MEDS: diphenhydrAMINE CAP 25 MG CAPSULE PO PRN (20:26)
[2019-11-06] MEDS: allopurinoL 300 MG TABLET PO SCH (20:27)
[2019-11-06] MEDS: ASPIRIN EC 81 MG TABLET PO SCH (20:27)
[2019-11-06] MEDS: SODIUM CHLORIDE 0.9% 1,000 ML IV SCH (23:00)
[2019-11-07] MEDS: LIDOCAINE 5% PATCH TRANSDERM SCH ×2 (00:08→09:00)
[2019-11-07] MEDS: IPRATROPIUM 500 MCG/2.5 ML NEB RESP TX SCH ×4 (00:38→19:37)
[2019-11-07] MEDS: DEXAMETHASONE 10 MG/1 ML VIAL IV SCH ×2 (01:29→12:30)
[2019-11-07] MEDS: SODIUM CHLORIDE 0.9% 1,000 ML IV SCH ×2 (04:05→16:59)
[2019-11-07] MEDS: LINEZOLID INJ 600 MG in PREMIX 1 EACH IV SCH ×2 (05:57→17:00)
[2019-11-07] MEDS: LEVOTHYROXINE 150 MCG TABLET PO SCH (06:01)
[2019-11-07 06:58] LABS: Basophils % 0.2 % (0.0-0.8); Hematocrit 29.3 VOL% (35.7-47.0); Hemoglobin 9.4 GM/DL (12.0-16.0); Immature Granulocytes % 1.3 %; Immature Granulocytes Absolute 0.06 #; Lymphocytes # 1.1 10*3/uL (1.4-4.0); Lymphocytes % 22.9 % (21.3-54.2); Mean Corpuscular HGB Conc 32.1 GM/DL (32-36); Mean Corpuscular Volume 91.6 FL (87-102); Mean Platelet Volume 8.8 FL (9.6-12.0); Monocytes % 2.1 % (1.7-12.7); Neutrophils % 73.5 % (38.7-73.9); Platelet Count 265 T/CUMM (130-400); Red Cell Distribution Width 18.4 % (9.3-17.3); White Blood Count 4.7 T/CUMM (4-12)
[2019-11-07 07:19] LABS: Alanine Aminotransferase 18 U/L (13-56); Albumin 2.9 G/DL (3.4-5.0); Alkaline Phosphatase 78 U/L (45-117); Aspartate Amino Transferase 17 U/L (0-37); Bilirubin,Total < 0.39 MG/DL (0.2-1.0); Blood Urea Nitrogen 16 MG/DL (7-18); Calcium 8.4 MG/DL (8.5-10.1); Estimated Glom Filtration Rate 44 ML/MIN; Glucose 251 MG/DL (74-106); Osmolality,Calculated 272.5 MOS/KG (273-304); Total Protein 6.5 G/DL (6.4-8.3)
[2019-11-07] MEDS: INSULIN LISPRO 100 UNIT/ML SUBCUT SCH ×3 (09:01→16:59)
[2019-11-07] MEDS: CLOTRIMAZOLE 10 MG TROCHE PO SCH ×3 (09:01→16:59)
[2019-11-07] MEDS: glipiZIDE 5 MG TABLET PO SCH ×2 (09:01→17:01)
[2019-11-07] MEDS: PANTOPRAZOLE 40 MG TABLET PO SCH (09:02)
[2019-11-07] MEDS: MEGESTROL 400 MG/10 ML UDCUP PO SCH ×2 (09:02→21:45)
[2019-11-07] MEDS: FUROSEMIDE 40 MG/4 ML VIAL IV SCH (09:02)
[2019-11-07] MEDS: amLODIPine 10 MG TABLET PO SCH (09:02)
[2019-11-07] MEDS: MAGNESIUM HYDROXIDE SUSP 30 ML UDCUP PO SCH (09:02)
[2019-11-07] MEDS: INSULIN GLARGINE 100 UNIT/ML SUBCUT SCH (09:03)
[2019-11-07] MEDS: MENTHOL/ZINC OXIDE OINT 71 GM JAR TOP SCH ×2 (09:04→21:45)
[2019-11-07] MEDS: NYSTATIN POWDER 15 GM BOTTLE TOP SCH ×3 (09:04→21:45)
[2019-11-07] MEDS: DOCUSATE SODIUM 100 MG CAPSULE PO SCH ×2 (09:08→21:45)
[2019-11-07] MEDS: GRANISETRON 1 MG/1 ML VIAL IV SCH (12:29)
[2019-11-07] MEDS: FAMOTIDINE 20 MG TABLET PO SCH (12:30)
[2019-11-07] MEDS: diphenhydrAMINE CAP 50 MG CAPSULE PO SCH (12:30)
[2019-11-07] MEDS ORDERED: CARBOplatin 300 MG in SODIUM CHLORIDE 0.9% 250 ML IV ONE (13:00)
[2019-11-07] MEDS: ETOPOSIDE 150 MG in SODIUM CHLORIDE 0.9% 500 ML IV SCH (15:30)
[2019-11-07] MEDS: LACTULOSE 20 GM/30 ML UDCUP PO PRN (17:13)
[2019-11-07] MEDS: allopurinoL 300 MG TABLET PO SCH (21:45)
[2019-11-07] MEDS: SIMVASTATIN 20 MG TABLET PO SCH (21:45)
[2019-11-07] MEDS: ASPIRIN EC 81 MG TABLET PO SCH (21:45)
[2019-11-08] MEDS: INSULIN LISPRO 100 UNIT/ML SUBCUT SCH ×5 (00:29→20:39)
[2019-11-08] MEDS: CLOTRIMAZOLE 10 MG TROCHE PO SCH ×5 (00:30→20:39)
[2019-11-08] MEDS: MAGNESIUM HYDROXIDE SUSP 30 ML UDCUP PO SCH ×3 (00:30→20:33)
[2019-11-08] MEDS: IPRATROPIUM 500 MCG/2.5 ML NEB RESP TX SCH ×4 (00:41→19:45)
[2019-11-08] MEDS: DEXAMETHASONE 10 MG/1 ML VIAL IV SCH ×2 (01:00→14:09)
[2019-11-08] MEDS: SODIUM CHLORIDE 0.9% 1,000 ML IV SCH ×2 (02:00→20:38)
[2019-11-08] MEDS: LIDOCAINE 5% PATCH TRANSDERM SCH ×3 (04:25→20:35)
[2019-11-08] MEDS: LEVOTHYROXINE 150 MCG TABLET PO SCH (06:02)
[2019-11-08 07:43] LABS: Basophils % 0.1 % (0.0-0.8); Hematocrit 32.1 VOL% (35.7-47.0); Hemoglobin 10.4 GM/DL (12.0-16.0); Immature Granulocytes % 0.5 %; Immature Granulocytes Absolute 0.04 #; Lymphocytes % 12.1 % (21.3-54.2); Mean Corpuscular HGB Conc 32.4 GM/DL (32-36); Mean Corpuscular Volume 89.2 FL (87-102); Mean Platelet Volume 8.6 FL (9.6-12.0); Monocytes % 5.6 % (1.7-12.7); Neutrophils % 81.7 % (38.7-73.9); Platelet Count 329 T/CUMM (130-400); Red Cell Distribution Width 18.6 % (9.3-17.3); White Blood Count 8.6 T/CUMM (4-12)
[2019-11-08 07:59] LABS: Alanine Aminotransferase 24 U/L (13-56); Albumin 3.3 G/DL (3.4-5.0); Alkaline Phosphatase 77 U/L (45-117); Aspartate Amino Transferase 24 U/L (0-37); Bilirubin,Total < 0.39 MG/DL (0.2-1.0); Blood Urea Nitrogen 24 MG/DL (7-18); Calcium 8.7 MG/DL (8.5-10.1); Estimated Glom Filtration Rate 41 ML/MIN; Glucose 178 MG/DL (74-106); Osmolality,Calculated 275.2 MOS/KG (273-304); Total Protein 6.9 G/DL (6.4-8.3)
[2019-11-08] MEDS: MEGESTROL 400 MG/10 ML UDCUP PO SCH ×2 (08:45→20:33)
[2019-11-08] MEDS: PANTOPRAZOLE 40 MG TABLET PO SCH (08:45)
[2019-11-08] MEDS: amLODIPine 10 MG TABLET PO SCH (08:45)
[2019-11-08] MEDS: DOCUSATE SODIUM 100 MG CAPSULE PO SCH ×2 (08:45→20:35)
[2019-11-08] MEDS: glipiZIDE 5 MG TABLET PO SCH ×2 (08:45→16:57)
[2019-11-08] MEDS: INSULIN GLARGINE 100 UNIT/ML SUBCUT SCH (08:46)
[2019-11-08] MEDS: MENTHOL/ZINC OXIDE OINT 71 GM JAR TOP SCH ×2 (08:48→20:35)
[2019-11-08] MEDS: NYSTATIN POWDER 15 GM BOTTLE TOP SCH ×3 (08:48→20:39)
[2019-11-08] MEDS: FUROSEMIDE 40 MG/4 ML VIAL IV SCH (14:01)
[2019-11-08] MEDS: FAMOTIDINE 20 MG TABLET PO SCH (14:03)
[2019-11-08] MEDS: diphenhydrAMINE CAP 50 MG CAPSULE PO SCH (14:05)
[2019-11-08] MEDS: GRANISETRON 1 MG/1 ML VIAL IV SCH (14:09)
[2019-11-08] MEDS: ETOPOSIDE 150 MG in SODIUM CHLORIDE 0.9% 500 ML IV SCH (14:10)
[2019-11-08] MEDS: diphenhydrAMINE CAP 25 MG CAPSULE PO PRN (20:33)
[2019-11-08] MEDS: ASPIRIN EC 81 MG TABLET PO SCH (20:33)
[2019-11-08] MEDS: SIMVASTATIN 20 MG TABLET PO SCH (20:33)
[2019-11-08] MEDS: allopurinoL 300 MG TABLET PO SCH (20:35)
[2019-11-08] MEDS: DICLOFENAC 1% GEL 100 GM TUBE TOP PRN (20:38)
[2019-11-09] MEDS: DEXAMETHASONE 10 MG/1 ML VIAL IV SCH ×2 (01:19→14:01)
[2019-11-09] MEDS: IPRATROPIUM 500 MCG/2.5 ML NEB RESP TX SCH ×4 (01:45→20:08)
[2019-11-09] MEDS: SODIUM CHLORIDE 0.9% 1,000 ML IV SCH ×2 (05:51→08:36)
[2019-11-09] MEDS: LEVOTHYROXINE 150 MCG TABLET PO SCH (06:04)
[2019-11-09 06:37] LABS: Hematocrit 28.8 VOL% (35.7-47.0); Hemoglobin 9.4 GM/DL (12.0-16.0); Immature Granulocytes % 0.6 %; Immature Granulocytes Absolute 0.03 #; Lymphocytes # 0.7 10*3/uL (1.4-4.0); Lymphocytes % 14.3 % (21.3-54.2); Mean Corpuscular HGB Conc 32.6 GM/DL (32-36); Mean Corpuscular Volume 89.2 FL (87-102); Monocytes % 6.3 % (1.7-12.7); NRBC # 0.02 10*3/uL; Neutrophils % 78.8 % (38.7-73.9); Platelet Count 300 T/CUMM (130-400); Red Blood Count 3.23 MC/CUMM (3.8-5.5); Red Cell Distribution Width 18.1 % (9.3-17.3)
[2019-11-09 06:56] LABS: Albumin 2.9 G/DL (3.4-5.0); Bilirubin,Total 0.7 MG/DL (0.2-1.0); Calcium 8.5 MG/DL (8.5-10.1); Osmolality,Calculated 277.1 MOS/KG (273-304); Total Protein 6.1 G/DL (6.4-8.3)
[2019-11-09] MEDS: INSULIN LISPRO 100 UNIT/ML SUBCUT SCH ×4 (08:01→21:45)
[2019-11-09] MEDS: FUROSEMIDE 40 MG/4 ML VIAL IV SCH (08:29)
[2019-11-09] MEDS: INSULIN GLARGINE 100 UNIT/ML SUBCUT SCH (08:29)
[2019-11-09] MEDS: CLOTRIMAZOLE 10 MG TROCHE PO SCH ×4 (08:30→21:45)
[2019-11-09] MEDS: glipiZIDE 5 MG TABLET PO SCH ×2 (08:30→17:49)
[2019-11-09] MEDS: DOCUSATE SODIUM 100 MG CAPSULE PO SCH ×2 (08:30→21:44)
[2019-11-09] MEDS: PANTOPRAZOLE 40 MG TABLET PO SCH (08:30)
[2019-11-09] MEDS: amLODIPine 10 MG TABLET PO SCH (08:31)
[2019-11-09] MEDS: LIDOCAINE 5% PATCH TRANSDERM SCH ×2 (08:31→21:45)
[2019-11-09] MEDS: MENTHOL/ZINC OXIDE OINT 71 GM JAR TOP SCH ×2 (08:32→21:45)
[2019-11-09] MEDS: MAGNESIUM HYDROXIDE SUSP 30 ML UDCUP PO SCH ×2 (08:40→21:44)
[2019-11-09] MEDS: MEGESTROL 400 MG/10 ML UDCUP PO SCH ×2 (08:40→21:44)
[2019-11-09] MEDS: NYSTATIN POWDER 15 GM BOTTLE TOP SCH ×3 (08:41→21:45)
[2019-11-09] MEDS: ONDANSETRON 4 MG/2 ML VIAL IV PRN (14:01)
[2019-11-09] MEDS: allopurinoL 300 MG TABLET PO SCH (21:44)
[2019-11-09] MEDS: SIMVASTATIN 20 MG TABLET PO SCH (21:44)
[2019-11-09] MEDS: diphenhydrAMINE CAP 25 MG CAPSULE PO PRN (21:45)
[2019-11-09] MEDS: ASPIRIN EC 81 MG TABLET PO SCH (21:45)
[2019-11-10] MEDS: IPRATROPIUM 500 MCG/2.5 ML NEB RESP TX SCH ×4 (02:47→20:12)
[2019-11-10] MEDS: DEXAMETHASONE 10 MG/1 ML VIAL IV SCH ×2 (04:37→13:25)
[2019-11-10] MEDS: LEVOTHYROXINE 150 MCG TABLET PO SCH (06:46)
[2019-11-10] MEDS: INSULIN GLARGINE 100 UNIT/ML SUBCUT SCH (09:35)
[2019-11-10] MEDS: INSULIN LISPRO 100 UNIT/ML SUBCUT SCH ×4 (09:36→20:33)
[2019-11-10] MEDS: FUROSEMIDE 40 MG/4 ML VIAL IV SCH (09:36)
[2019-11-10] MEDS: amLODIPine 10 MG TABLET PO SCH (09:36)
[2019-11-10] MEDS: DOCUSATE SODIUM 100 MG CAPSULE PO SCH ×2 (09:36→20:32)
[2019-11-10] MEDS: glipiZIDE 5 MG TABLET PO SCH ×2 (09:36→17:23)
[2019-11-10] MEDS: PANTOPRAZOLE 40 MG TABLET PO SCH (09:36)
[2019-11-10] MEDS: NYSTATIN POWDER 15 GM BOTTLE TOP SCH ×3 (09:37→20:39)
[2019-11-10] MEDS: MENTHOL/ZINC OXIDE OINT 71 GM JAR TOP SCH ×2 (09:37→20:33)
[2019-11-10] MEDS: LIDOCAINE 5% PATCH TRANSDERM SCH ×2 (09:43→20:37)
[2019-11-10] MEDS: CLOTRIMAZOLE 10 MG TROCHE PO SCH ×4 (09:43→20:39)
[2019-11-10] MEDS: MAGNESIUM HYDROXIDE SUSP 30 ML UDCUP PO SCH ×2 (09:50→20:33)
[2019-11-10] MEDS: MEGESTROL 400 MG/10 ML UDCUP PO SCH ×2 (09:50→20:33)
[2019-11-10 10:07] LABS: Hematocrit 29.5 VOL% (35.7-47.0); Hemoglobin 9.4 GM/DL (12.0-16.0); Immature Granulocytes % 0.3 %; Immature Granulocytes Absolute 0.01 #; Lymphocytes # 0.7 10*3/uL (1.4-4.0); Lymphocytes % 19.6 % (21.3-54.2); Mean Corpuscular HGB Conc 31.9 GM/DL (32-36); Mean Corpuscular Volume 90.2 FL (87-102); Mean Platelet Volume 9.8 FL (9.6-12.0); Monocytes % 3.6 % (1.7-12.7); Neutrophils % 76.5 % (38.7-73.9); Platelet Count 284 T/CUMM (130-400); Red Blood Count 3.27 MC/CUMM (3.8-5.5); White Blood Count 3.6 T/CUMM (4-12)
[2019-11-10 10:20] LABS: Alanine Aminotransferase 35 U/L (13-56); Alkaline Phosphatase 66 U/L (45-117); Aspartate Amino Transferase 30 U/L (0-37); Bilirubin,Total < 0.39 MG/DL (0.2-1.0); Blood Urea Nitrogen 35 MG/DL (7-18); Calcium 8.3 MG/DL (8.5-10.1); Estimated Glom Filtration Rate 37 ML/MIN; Glucose 176 MG/DL (74-106); Total Protein 6.1 G/DL (6.4-8.3)
[2019-11-10] MEDS: LINACLOTIDE 145 MCG CAPSULE PO SCH (11:05)
[2019-11-10] MEDS: SIMVASTATIN 20 MG TABLET PO SCH (20:32)
[2019-11-10] MEDS: ASPIRIN EC 81 MG TABLET PO SCH (20:32)
[2019-11-10] MEDS: allopurinoL 300 MG TABLET PO SCH (20:32)
[2019-11-10] MEDS: diphenhydrAMINE CAP 25 MG CAPSULE PO PRN (20:32)
[2019-11-10] MEDS: LACTULOSE 20 GM/30 ML UDCUP PO PRN (22:57)
[2019-11-11] MEDS: IPRATROPIUM 500 MCG/2.5 ML NEB RESP TX SCH ×4 (00:22→19:27)
[2019-11-11] MEDS: DEXAMETHASONE 10 MG/1 ML VIAL IV SCH ×2 (00:45→14:56)
[2019-11-11] MEDS: LEVOTHYROXINE 150 MCG TABLET PO SCH (05:42)
[2019-11-11] MEDS: BISACODYL 10 MG SUPP RECTAL PRN (05:44)
[2019-11-11 05:45] LABS: Hematocrit 31.4 VOL% (35.7-47.0); Immature Granulocytes % 0.5 %; Immature Granulocytes Absolute 0.03 #; Lymphocytes # 0.8 10*3/uL (1.4-4.0); Lymphocytes % 12.2 % (21.3-54.2); Mean Corpuscular HGB Conc 31.8 GM/DL (32-36); Mean Corpuscular Volume 91.3 FL (87-102); Mean Platelet Volume 9.1 FL (9.6-12.0); Monocytes % 0.8 % (1.7-12.7); Neutrophils % 86.5 % (38.7-73.9); Platelet Count 285 T/CUMM (130-400); Red Blood Count 3.44 MC/CUMM (3.8-5.5); Red Cell Distribution Width 17.9 % (9.3-17.3); White Blood Count 6.1 T/CUMM (4-12)
[2019-11-11 06:11] LABS: Bilirubin,Total 0.6 MG/DL (0.2-1.0); Calcium 8.6 MG/DL (8.5-10.1); Osmolality,Calculated 286.8 MOS/KG (273-304); Total Protein 6.2 G/DL (6.4-8.3)
[2019-11-11] MEDS: MAGNESIUM HYDROXIDE SUSP 30 ML UDCUP PO SCH ×2 (09:26→21:26)
[2019-11-11] MEDS: DOCUSATE SODIUM 100 MG CAPSULE PO SCH ×2 (09:26→21:24)
[2019-11-11] MEDS: amLODIPine 10 MG TABLET PO SCH (09:26)
[2019-11-11] MEDS: INSULIN GLARGINE 100 UNIT/ML SUBCUT SCH (09:26)
[2019-11-11] MEDS: CLOTRIMAZOLE 10 MG TROCHE PO SCH ×4 (09:26→21:24)
[2019-11-11] MEDS: MEGESTROL 400 MG/10 ML UDCUP PO SCH ×2 (09:26→21:24)
[2019-11-11] MEDS: PANTOPRAZOLE 40 MG TABLET PO SCH (09:26)
[2019-11-11] MEDS: INSULIN LISPRO 100 UNIT/ML SUBCUT SCH ×4 (09:35→21:56)
[2019-11-11] MEDS: MENTHOL/ZINC OXIDE OINT 71 GM JAR TOP SCH ×2 (09:35→21:24)
[2019-11-11] MEDS: LINACLOTIDE 145 MCG CAPSULE PO SCH (09:36)
[2019-11-11] MEDS: FUROSEMIDE 40 MG/4 ML VIAL IV SCH (09:37)
[2019-11-11] MEDS: glipiZIDE 5 MG TABLET PO SCH ×2 (09:42→16:45)
[2019-11-11] MEDS: NYSTATIN POWDER 15 GM BOTTLE TOP SCH ×3 (09:42→22:16)
[2019-11-11] MEDS: LIDOCAINE 5% PATCH TRANSDERM SCH ×2 (09:54→21:31)
[2019-11-11] MEDS: SIMVASTATIN 20 MG TABLET PO SCH (21:24)
[2019-11-11] MEDS: ASPIRIN EC 81 MG TABLET PO SCH (21:24)
[2019-11-11] MEDS: allopurinoL 300 MG TABLET PO SCH (21:24)
[2019-11-12] MEDS: DEXAMETHASONE 10 MG/1 ML VIAL IV SCH ×2 (00:21→12:14)
[2019-11-12] MEDS: IPRATROPIUM 500 MCG/2.5 ML NEB RESP TX SCH ×4 (00:51→20:10)
[2019-11-12] MEDS: LEVOTHYROXINE 150 MCG TABLET PO SCH (05:32)
[2019-11-12 07:24] LABS: Basophils % 0.2 % (0.0-0.8); Hematocrit 30.2 VOL% (35.7-47.0); Hemoglobin 9.5 GM/DL (12.0-16.0); Immature Granulocytes % 1.6 %; Immature Granulocytes Absolute 0.07 #; Lymphocytes # 0.5 10*3/uL (1.4-4.0); Lymphocytes % 11.5 % (21.3-54.2); Mean Corpuscular HGB Conc 31.5 GM/DL (32-36); Mean Corpuscular Volume 91.8 FL (87-102); Mean Platelet Volume 9.1 FL (9.6-12.0); Monocytes % 0.5 % (1.7-12.7); Neutrophils % 86.2 % (38.7-73.9); Platelet Count 256 T/CUMM (130-400); Red Blood Count 3.29 MC/CUMM (3.8-5.5); Red Cell Distribution Width 17.4 % (9.3-17.3); White Blood Count 4.4 T/CUMM (4-12)
[2019-11-12 07:53] LABS: Albumin 2.7 G/DL (3.4-5.0); Bilirubin,Total 0.4 MG/DL (0.2-1.0); Calcium 8.3 MG/DL (8.5-10.1); Total Protein 5.9 G/DL (6.4-8.3)
[2019-11-12] MEDS: INSULIN LISPRO 100 UNIT/ML SUBCUT SCH ×4 (08:09→21:28)
[2019-11-12] MEDS: amLODIPine 10 MG TABLET PO SCH ×2 (08:36→08:44)
[2019-11-12] MEDS: LIDOCAINE 5% PATCH TRANSDERM SCH ×2 (08:36→20:16)
[2019-11-12] MEDS: MAGNESIUM HYDROXIDE SUSP 30 ML UDCUP PO SCH ×2 (08:36→20:16)
[2019-11-12] MEDS: DOCUSATE SODIUM 100 MG CAPSULE PO SCH ×2 (08:36→20:15)
[2019-11-12] MEDS: glipiZIDE 5 MG TABLET PO SCH ×2 (08:36→16:06)
[2019-11-12] MEDS: LINACLOTIDE 145 MCG CAPSULE PO SCH (08:36)
[2019-11-12] MEDS: CLOTRIMAZOLE 10 MG TROCHE PO SCH ×4 (08:36→20:16)
[2019-11-12] MEDS: INSULIN GLARGINE 100 UNIT/ML SUBCUT SCH (08:36)
[2019-11-12] MEDS: FUROSEMIDE 40 MG/4 ML VIAL IV SCH (08:36)
[2019-11-12] MEDS: MEGESTROL 400 MG/10 ML UDCUP PO SCH ×2 (08:36→20:15)
[2019-11-12] MEDS: NYSTATIN POWDER 15 GM BOTTLE TOP SCH ×3 (08:37→20:15)
[2019-11-12] MEDS: MENTHOL/ZINC OXIDE OINT 71 GM JAR TOP SCH ×2 (08:37→20:15)
[2019-11-12] MEDS: PANTOPRAZOLE 40 MG TABLET PO SCH (08:38)
[2019-11-12] MEDS: allopurinoL 300 MG TABLET PO SCH (20:15)
[2019-11-12] MEDS: ASPIRIN EC 81 MG TABLET PO SCH (20:15)
[2019-11-12] MEDS: SIMVASTATIN 20 MG TABLET PO SCH (20:15)
[2019-11-12] MEDS: ACETAMINOPHEN 325 MG TABLET PO PRN (21:28)
[2019-11-13] MEDS: IPRATROPIUM 500 MCG/2.5 ML NEB RESP TX SCH ×4 (00:10→19:44)
[2019-11-13] MEDS: DEXAMETHASONE 10 MG/1 ML VIAL IV SCH ×2 (01:07→13:13)
[2019-11-13] MEDS: LEVOTHYROXINE 150 MCG TABLET PO SCH (05:05)
[2019-11-13 05:59] LABS: Basophils % 0.3 % (0.0-0.8); Hematocrit 30.7 VOL% (35.7-47.0); Hemoglobin 9.9 GM/DL (12.0-16.0); Immature Granulocytes % 2.6 %; Immature Granulocytes Absolute 0.15 #; Lymphocytes # 0.6 10*3/uL (1.4-4.0); Lymphocytes % 9.9 % (21.3-54.2); Mean Corpuscular HGB Conc 32.2 GM/DL (32-36); Mean Corpuscular Volume 89.2 FL (87-102); Mean Platelet Volume 9.2 FL (9.6-12.0); Monocytes % 0.3 % (1.7-12.7); Neutrophils % 86.9 % (38.7-73.9); Platelet Count 222 T/CUMM (130-400); Red Blood Count 3.44 MC/CUMM (3.8-5.5); Red Cell Distribution Width 17.4 % (9.3-17.3); White Blood Count 5.8 T/CUMM (4-12)
[2019-11-13 06:22] LABS: Albumin 2.9 G/DL (3.4-5.0); Calcium 8.2 MG/DL (8.5-10.1); Osmolality,Calculated 287.1 MOS/KG (273-304); Total Protein 6.1 G/DL (6.4-8.3)
[2019-11-13 06:24] LABS: Hypochromasia Slight; Lymphocytes 5 % (20-55); Ovalocytes Slight; Platelet Estimate Adequate; Segmented Neutrophils 95 % (50-85); Total Cells Counted 100
[2019-11-13] MEDS: INSULIN GLARGINE 100 UNIT/ML SUBCUT SCH (08:48)
[2019-11-13] MEDS: glipiZIDE 5 MG TABLET PO SCH ×2 (08:49→16:06)
[2019-11-13] MEDS: MAGNESIUM HYDROXIDE SUSP 30 ML UDCUP PO SCH ×3 (08:49→21:40)
[2019-11-13] MEDS: DOCUSATE SODIUM 100 MG CAPSULE PO SCH ×2 (08:49→21:36)
[2019-11-13] MEDS: amLODIPine 10 MG TABLET PO SCH (08:49)
[2019-11-13] MEDS: CLOTRIMAZOLE 10 MG TROCHE PO SCH ×4 (08:49→21:36)
[2019-11-13] MEDS: INSULIN LISPRO 100 UNIT/ML SUBCUT SCH ×4 (08:49→21:37)
[2019-11-13] MEDS: MEGESTROL 400 MG/10 ML UDCUP PO SCH ×2 (08:49→21:36)
[2019-11-13] MEDS: PANTOPRAZOLE 40 MG TABLET PO SCH (08:49)
[2019-11-13] MEDS: NYSTATIN POWDER 15 GM BOTTLE TOP SCH ×3 (08:50→21:36)
[2019-11-13] MEDS: LIDOCAINE 5% PATCH TRANSDERM SCH ×2 (08:50→21:36)
[2019-11-13] MEDS: FUROSEMIDE 40 MG/4 ML VIAL IV SCH (08:50)
[2019-11-13] MEDS: MENTHOL/ZINC OXIDE OINT 71 GM JAR TOP SCH ×2 (08:50→21:36)
[2019-11-13] MEDS: LINACLOTIDE 145 MCG CAPSULE PO SCH (08:50)
[2019-11-13] MEDS: ASPIRIN EC 81 MG TABLET PO SCH (21:36)
[2019-11-13] MEDS: SIMVASTATIN 20 MG TABLET PO SCH (21:36)
[2019-11-13] MEDS: allopurinoL 300 MG TABLET PO SCH (21:36)
[2019-11-14] MEDS: IPRATROPIUM 500 MCG/2.5 ML NEB RESP TX SCH ×3 (00:34→11:28)
[2019-11-14] MEDS: DEXAMETHASONE 10 MG/1 ML VIAL IV SCH ×2 (01:40→13:50)
[2019-11-14] MEDS: LEVOTHYROXINE 150 MCG TABLET PO SCH (05:51)
[2019-11-14 07:13] LABS: Basophils % 0.3 % (0.0-0.8); Hematocrit 27.8 VOL% (35.7-47.0); Hemoglobin 8.8 GM/DL (12.0-16.0); Immature Granulocytes % 2.6 %; Immature Granulocytes Absolute 0.09 #; Lymphocytes # 0.4 10*3/uL (1.4-4.0); Lymphocytes % 12.5 % (21.3-54.2); Mean Corpuscular HGB Conc 31.7 GM/DL (32-36); Mean Corpuscular Volume 92.1 FL (87-102); Mean Platelet Volume 9.6 FL (9.6-12.0); Monocytes % 0.9 % (1.7-12.7); Neutrophils % 83.7 % (38.7-73.9); Red Blood Count 3.02 MC/CUMM (3.8-5.5); Red Cell Distribution Width 16.9 % (9.3-17.3); White Blood Count 3.4 T/CUMM (4-12)
[2019-11-14 07:16] LABS: Platelet Count 173 T/CUMM (130-400)
[2019-11-14 07:22] LABS: Albumin 2.7 G/DL (3.4-5.0); Bilirubin,Total 1.3 MG/DL (0.2-1.0); Calcium 8.1 MG/DL (8.5-10.1); Osmolality,Calculated 287.1 MOS/KG (273-304); Total Protein 5.7 G/DL (6.4-8.3)
[2019-11-14 07:29] LABS: Lymphocytes 11 % (20-55); Platelet Estimate Normal; Segmented Neutrophils 89 % (50-85); Total Cells Counted 100
[2019-11-14 07:30] LABS: Anisocytosis 1+; Macrocytosis Slight
[2019-11-14] MEDS: INSULIN GLARGINE 100 UNIT/ML SUBCUT SCH (09:20)
[2019-11-14] MEDS: glipiZIDE 5 MG TABLET PO SCH (09:20)
[2019-11-14] MEDS: MAGNESIUM HYDROXIDE SUSP 30 ML UDCUP PO SCH (09:20)
[2019-11-14] MEDS: PANTOPRAZOLE 40 MG TABLET PO SCH (09:21)
[2019-11-14] MEDS: MEGESTROL 400 MG/10 ML UDCUP PO SCH (09:21)
[2019-11-14] MEDS: LINACLOTIDE 145 MCG CAPSULE PO SCH (09:21)
[2019-11-14] MEDS: INSULIN LISPRO 100 UNIT/ML SUBCUT SCH ×2 (09:21→13:50)
[2019-11-14] MEDS: amLODIPine 10 MG TABLET PO SCH (09:21)
[2019-11-14] MEDS: LIDOCAINE 5% PATCH TRANSDERM SCH (09:22)
[2019-11-14] MEDS: MENTHOL/ZINC OXIDE OINT 71 GM JAR TOP SCH (09:22)
[2019-11-14] MEDS: DOCUSATE SODIUM 100 MG CAPSULE PO SCH (09:22)
[2019-11-14] MEDS: FUROSEMIDE 40 MG/4 ML VIAL IV SCH (09:22)
[2019-11-14] MEDS: NYSTATIN POWDER 15 GM BOTTLE TOP SCH (09:22)
[2019-11-14] MEDS: CLOTRIMAZOLE 10 MG TROCHE PO SCH ×2 (09:22→15:09)
[2019-11-14 12:39] VITALS: BP 107/66
== END 2019-11-14 14:40 | disposition hospice, home (50) | DRG 166 ==
LOC: N.EDINP 13:21 → N.ED 13:21 → SUPCPDRO 15:33 → N.4E 15:57 → N.TELES 10-18 14:47
PROVIDERS: ADMIT Internal Medicine; ATTEND Internal Medicine
PROC: BRONCHB (2019-10-03 10:50)